=== PATIENT | female | born 1940 | race Caucasian/White ===

== ENCOUNTER → 2024-01-23 08:24 | Outpatient (REF) | payer OTHER, SELFPAY | LOC: WDC 08:24 | PROVIDERS: ATTENDING PHYSICIAN Surgery | DX: D05.91 Unspecified type of carcinoma in situ of right breast (principal) | CPT/HCPCS: 19281; A4648 ==

== ENCOUNTER → 2024-01-24 07:42 | Outpatient (REF) | payer OTHER, SELFPAY | LOC: WDC 07:42 | PROVIDERS: ATTENDING PHYSICIAN Surgery | DX: D05.91 Unspecified type of carcinoma in situ of right breast (principal) | CPT/HCPCS: 88307; 76098; 88342 ==

== ENCOUNTER → 2024-02-23 10:06 | Outpatient (REF) | payer OTHER, SELFPAY | LOC: HWRAD 10:06 | PROVIDERS: ATTENDING PHYSICIAN Obstetrics & Gynecology Gynecologic Oncology; FAMILY PHYSICIAN Internal Medicine | DX: C54.1 Malignant neoplasm of endometrium (principal) | CPT/HCPCS: 71260; 74177; Q9967 ==

== ENCOUNTER → 2024-07-05 14:27 | Outpatient (REF) | payer OTHER, SELFPAY | LOC: HWRAD 14:27 | PROVIDERS: ATTENDING PHYSICIAN Internal Medicine Endocrinology, Diabetes & Metabolism; FAMILY PHYSICIAN Internal Medicine | DX: E04.2 Nontoxic multinodular goiter (principal) | CPT/HCPCS: 76536 ==

== ENCOUNTER → 2024-07-24 13:57 | Outpatient (REF) | payer OTHER, SELFPAY | LOC: HWRAD 13:57 | PROVIDERS: ATTENDING PHYSICIAN Physical Medicine & Rehabilitation; FAMILY PHYSICIAN Internal Medicine | DX: M43.16 Spondylolisthesis, lumbar region (principal) | CPT/HCPCS: 72114 ==

== ENCOUNTER → 2024-08-09 13:51 | Outpatient (REF) | payer OTHER, SELFPAY | LOC: HWWDC 13:51 | PROVIDERS: ATTENDING PHYSICIAN Internal Medicine | DX: Z12.31 Encounter for screening mammogram for malignant neoplasm of breast (principal) | CPT/HCPCS: 77063; 77067 ==

== ENCOUNTER 2025-03-20 09:39 | Emergency (ER) | payer OTHER, SELFPAY ==
[2025-03-20 10:12] VITALS: BP 161/80
--- NOTE | 2025-03-20 11:29 | ED.GENMED ---
History of Present Illness
General
Chief Complaint: Catheter/Tube Problem
Time Seen by Provider: 03/20/25 10:57
History of Present Illness
History of Present Illness:
The patient is an 85-year-old female who was brought in due to a dislodged urinary catheter. She has an indwelling Mccabe catheter for her uterine cancer; however, she noticed the catheter tubing was no longer connected and the urine bag was empty.
Her reported that the catheter segment was found lying on the floor at home. The patient has a history of using a Mccabe catheter for urine drainage and confirmed this is a long-term necessity as she does not urinate independently. She is
unsure when her last exchange was.
Past History
Past History
ED Past Medical History: HTN
ED Past Surgical History: Cholecystectomy and Orthopedic (Rotator cuff repair)
Social History
Tobacco: Non-smoker
Alcohol: None
Personal:
Living: with family
Employment: Retired
Family History
Family History: Other (Noncontributory)
Phy Exam
Physical Exam
Physical Exam:
GENERAL: in no acute distress
HEENT: normocephalic, extraocular movements intact
NECK: normal inspection
RESPIRATORY: no respiratory distress
CARDIOVASCULAR: regular rate and rhythm
ABDOMEN/: soft, non-distended, non-tender to palpation, no rebound or guarding, Mccabe catheter not in place, bag attached to the leg with part of the catheter
NEUROLOGIC: awake and alert, moves all extremities
SKIN: warm
Course
Vital Signs
Initial and Last Documented VS:
Initial Vital Signs
Temp Pulse Resp BP
98.0 F 102 19 161/80
03/20/25 10:12 03/20/25 10:12 03/20/25 10:12 03/20/25 10:12
Last Documented Vital Signs
Temp Pulse Resp BP
98.0 F 102 19 161/80
03/20/25 10:12 03/20/25 10:12 03/20/25 10:12 03/20/25 10:12
MDM/Problems Addressed
Differential Diagnosis Includes:
85-year-old woman presenting to the emergency department with dislodgment of her Mccabe catheter. Vitals are unremarkable and exam does show apartment Mccabe catheter only attached to the bag. There is no connection to her urethra. I did obtain a
bedside ultrasound to confirm that there was no piece in her bladder. Her bladder was distended but there was no foreign body or remaining pieces of the catheter. Will replace catheter. Given that the catheter was only out for a few hours we will
hold off on any blood work or urine sampling. Will discharge after replacement.
*Critical Care Note
Total Time (30-74mins, 75-104mins- exclusive of procedures): Not Applicable
ED Attending Note
-
Portions of this chart may have been created with voice recognition software.� Occasional wrong word or��sound alike� substitutions may have occurred due to the inherent limitations of voice recognition software.
Discharge Plan
Departure
Prescriptions:
No Action
simvastatin 20 MG tablet
20 mg PO QPM
cholecalciferol (vitamin D3) 1,000 UNITS tablet
1 tab PO DAILY
coQ10 (ubiquinol) 100 MG capsule
300 mg PO DAILY
krill oil 1 EACH capsule
1 cap PO DAILY
biotin 5,000 MCG tablet,disintegrating
5,000 mcg PO DAILY
levothyroxine 25 mcg Tablet
25 mcg PO DAILY
magnesium 200 mg Tablet
400 mg PO DAILY
scpuwsizafwh-zrwpbwbz-pexuvy Tablet
1 tab PO DAILY
Align (B.infantis) 4 mg Capsule
4 mg PO DAILY
oxycodone 5 mg tablet
5 - 10 mg PO Q6H PRN (Reason: moderate-severe pain) Qty: 25 0RF
Rx Instructions:
1 tab for moderate pain, 2 if severe.
Dx total joint.
meloxicam 15 mg tablet
15 mg PO DAILY Qty: 14 0RF
Rx Instructions:
Take with food.
DO NOT take within 2 hours of Aspirin post-surgery.
ondansetron HCl 4 mg tablet
4 mg PO Q6H PRN (Reason: nausea and vomiting) Qty: 30 0RF
Rx Instructions:
Can take 1/2 hour prior to Oxycodone if experiencing recurrent nausea.
doxycycline monohydrate 100 mg capsule
100 mg PO BID Qty: 7 0RF
Rx Instructions:
Start night of discharge and continue twice a day for 3 days post-surgery.
mupirocin 2 % ointment
1 applic intranasal BID Qty: 1 0RF
Patient Comments:
Patient administered this medication this morning 09/20/23 @ 04:30. Patient strarted this medication 09/17/23 in the morning.
acetaminophen [Acetaminophen Extra Strength] 500 mg tablet
1,000 mg PO Q6H Qty: 60 0RF
Rx Instructions:
DO NOT exceed >4000 mg daily.
aspirin 325 mg tablet
325 mg PO DAILY Qty: 30 0RF
Rx Instructions:
Take daily x4 weeks for blood clot prevention; then resume Aspirin 81 mg daily.
docusate sodium [Colace] 100 mg capsule
100 mg PO BID Qty: 30 0RF
sennosides [senna] 8.6 mg tablet
17.2 mg PO BID Qty: 30 0RF
diltiazem HCl 240 MG capsule,extended release 24hr
240 mg PO DAILY Qty: 0 0RF
Rx Instructions:
HOLD IF systolic blood pressure <130 while on Oxycodone.
hydralazine 25 MG tablet
25 mg PO BID Qty: 0 0RF
Rx Instructions:
HOLD IF systolic blood pressure <130 while on Oxycodone.
omeprazole 40 mg Capsule,Delayed Release(Dr/Ec)
40 mg PO DAILY Qty: 0 0RF
Rx Instructions:
Take daily while on Meloxicam and full dose Aspirin to prevent GI upset.
valsartan-hydrochlorothiazide [Diovan HCT] 320-25 mg Tablet
1 tab PO DAILY Qty: 0 0RF
Rx Instructions:
HOLD IF systolic blood pressure <130 while on Oxycodone.
Referrals:
Barb Valencia MD [Family Provider, Internal Medicine]
Interventions
Interventions:
*General Assessment Last Done: 03/20/25 10:12
*ED COVID-19 Vaccine History Last Done: 03/20/25 10:12
ED-Female Genitourinary Assessment Last Done: 03/20/25 11:41
Discharge Date and Time
Print Language: GREENLANDIC
== END 2025-03-20 12:41 | disposition home or self-care (01) ==
LOC: EMR 09:39
PROVIDERS: EMERGENCY PHYSICIAN Student in an Organized Health Care Education/Training Program; FAMILY PHYSICIAN Internal Medicine
DX: T83.021A Displacement of indwelling urethral catheter, initial encounter (principal); Y92.9 Unspecified place or not applicable; I10 Essential (primary) hypertension; Z90.49 Acquired absence of other specified parts of digestive tract
CPT/HCPCS: 99282; 51702

== ENCOUNTER 2025-03-23 13:24 | Inpatient (IN) | payer OTHER, SELFPAY ==
[2025-03-21] VITALS (11 sets, daily range): BP systolic 129–157; BP diastolic 52–76; BMI 24.0
[2025-03-21 12:42] LABS: % Basophils 0.3 % (0-2); % Eosinophils 0.3 % (0-6); % Immature Granulocytes 0.4 % (0-0.5); % Lymphocytes 3.9 % (20.5-51.1); % Monocytes 10.7 % (1.7-9.3); % Neutrophils 84.4 % (42.2-75.2); Absolute Lymphocytes 0.4 10^3/uL (1.2-3.4); Absolute Neutrophils 7.7 10^3/uL (1.4-6.5); Mean Corp Hgb Conc. 32.1 g/dL (33.0-37.0); Mean Corpuscular Hgb 30.9 pg (27.0-31.0); Mean Corpuscular Volume 96.2 fL (81.0-99.0); Mean Platelet Volume 10.5 fL (7.4-10.4); Nucleated Red Blood Cells % 0 %; Platelet Count 370 10^3/uL (130-400); Red Blood Cell Count 2.91 10^6/uL (4.20-5.40); Red Cell Dist. Width 18.6 % (11.5-14.5); White Blood Cell Count 9.1 10^3/uL (4.8-10.8)
[2025-03-21 12:43] LABS: Urine Albumin 3+ (Neg - Trace); Urine Bilirubin Negative (Negative); Urine Character Slightly Cloudy (Clear); Urine Color Yellow; Urine Glucose Negative (Negative); Urine Ketone Negative (Negative); Urine Leukocyte 3+ (Negative); Urine Nitrite Positive (Negative); Urine Occult Blood 3+ (Negative); Urine Urobilinogen Negative (Neg - 1+); Urine pH 6.5 (5.0-9.0)
--- NOTE | 2025-03-21 13:00 | ED.GENMED ---
History of Present Illness
General
Chief Complaint: Change in Mental Status
Source: patient and spouse
Exam Limitations: none
Time Seen by Provider: 03/21/25 12:53
History of Present Illness
History of Present Illness:
See MDM
Past History
Past History
ED Past Medical History: HTN
ED Past Surgical History: Cholecystectomy and Orthopedic (Rotator cuff repair)
Social History
Tobacco: Non-smoker
Alcohol: None
Personal:
Living: with family
Employment: Retired
Family History
Family History: Other (Noncontributory)
Phy Exam
Physical Exam
Physical Exam:
See MDM
Course
Orders/Labs/Results
Orders:
Orders
03/21/25 12:19
ECG [Electrocardiogram (*1)] Urgent
Reason for Study: Atrial Fibrillation
03/21/25 12:20
EKG- Treatment ONCE
03/21/25 12:30
Complete Blood Count/With Diff Urgent
Comprehensive Metabolic Panel Urgent
Urinalysis Reflex To Culture Urgent
Date Specimen was Collected: 03/21/25
Time Specimen was Collected: 12:25
Urine Microscopic Reflex Cult Urgent
Urine Culture Urgent
PIYUSH Source: U
Specimen Description:
Date Specimen was Collected: 03/21/25
Time Specimen was Collected: 12:25
03/21/25 13:00
CT Head W/o Iv Contrast Urgent
Comment:
Reason For Exam: Repetitive questioning, confusion
03/21/25 14:50
Aspirin Chewable [Low Strength Aspirin] 324 mg PO NOW STA
03/21/25 15:49
Admit/Transfer Patient As Directed
Co-Sign Provider:
Level of Care: Observation services
Assign to:: Telemetry
Physician / Group: Naila Dyer
Diagnosis: CVA/TIA
Reason for Telemetry: CVA/TIA
Date to Stop Telemetry: 03/24/25
Time to Stop Telemetry: 11:00
PRN Pain Medication Management As Directed
May give lesser potent ordered pain med per pt: Yes
preference::
Protocol:: Medication orders for pain may be administered in a
manner that supports deferring to patient preference
when the pt is:
- Requesting an ordered lesser potent pain medication.
Least to most potent pain medications are defined
as: acetaminophen < NSAID < tramadol < opioids
(morphine, oxycodone, hydromorphone).
- Requesting a lesser dose of the same medication IF
ORDERED.
- Requesting a less intrusive route of administration
if both routes are prescribed by the provider (PO <
IV).
03/21/25 15:51
Code Status As Directed
Resuscitation Status: Full Code
03/21/25 15:54
Clopidogrel Bisulfate [Plavix] 75 mg PO NOW STA
03/24/25 11:00
DC Protocol for Telemetry ONCE
Abnormal Lab Results
03/21/25
12:30
RBC 2.91 L 10^6/uL
(4.20-5.40)
Hgb 9.0 L g/dL
(12.0-16.0)
Hct 28.0 L %
(37.0-47.0)
MCHC 32.1 L g/dL
(33.0-37.0)
RDW 18.6 H %
(11.5-14.5)
MPV 10.5 H fL
(7.4-10.4)
Absolute Neuts (auto) 7.7 H 10^3/uL
(1.4-6.5)
Absolute Lymphs (auto) 0.4 L 10^3/uL
(1.2-3.4)
Absolute Monos (auto) 1.0 H 10^3/uL
(0.1-0.6)
Neutrophils % 84.4 H %
(42.2-75.2)
Lymphocytes % 3.9 L %
(20.5-51.1)
Monocytes % 10.7 H %
(1.7-9.3)
BUN 25 H mg/dl
(7-17)
Creatinine 1.1 H mg/dL
(0.6-1.0)
Glucose 133 H mg/dl
(70-99)
Total Protein 6.0 L g/dl
(6.3-8.2)
Albumin 3.3 L g/dl
(3.5-5.0)
Ur Occult Blood Reflex 3+ A
(Negative)
Urine Nitrite (Reflex) Positive A
(Negative)
Leukocyte Esterase Rfl 3+ A
(Negative)
Urine WBC (Reflex) 50-60 A /HPF
(0-5)
Urine Bacteria (Reflex) Many A
(Negative)
Urine Albumin (Reflex) 3+ A
(Neg - Trace)
03/21/25 12:30
03/21/25 12:30
Vital Signs
Initial and Last Documented VS:
Initial Vital Signs
Temp Pulse Resp BP Pulse Ox
98.1 F 105 20 145/66 99
03/21/25 12:20 03/21/25 12:20 03/21/25 12:20 03/21/25 12:20 03/21/25 12:20
Last Documented Vital Signs
Temp Pulse Resp BP Pulse Ox
98.1 F 85 22 151/53 100
03/21/25 12:20 03/21/25 16:00 03/21/25 16:00 03/21/25 16:00 03/21/25 14:45
MDM/Problems Addressed
Differential Diagnosis Includes:
Note:
CHIEF COMPLAINT(S)
Confusion and feeling 'out of it.'
HISTORY OF PRESENT ILLNESS
The patient is an 85-year-old female who reports feeling 'out of it' and confused, stating she did not know where she was. Her spouse noted that this morning she was repeatedly asking the same questions, indicating a potential issue with memory or
cognition. The symptoms began upon waking and have persisted, leaving the patient feeling abnormal. However, she states she is feeling better. She denies any previous history of strokes and does not currently take any blood thinners. She states she
still feels off and is confused about her location. She does not have a history of atrial fibrillation, but EMS had noted a fast heart rate during transport.
PHYSICAL EXAM
General: Well appearing and non-toxic
HEENT: protecting airway
Neck: appears supple
CV: No evidence of cyanosis. Regular rate and rhythm
Resp: No accessory muscle use. Lungs clear
Abd: Non-distended
Extremities: No deformities. No edema
Neuro: alert. Mild confusion but no other focal neurodeficits
Psych: Normal affect
Skin: Intact
REVIEW OF SYSTEMS
- Neurological: Confusion, repetitive questioning.
- Vision: Denies blurry vision or trouble seeing.
PLAN
The current plan includes performing a computed tomography (CT) scan of the head to rule out a transient ischemic attack or stroke. Admission for overnight observation is recommended to ensure no progression of symptoms, with further discussions to
follow based on test results. Continued monitoring of neurological status is planned.
DIFFERENTIAL DIAGNOSIS
The Differential Diagnosis includes, in no particular order and is not limited to:
1. Transient Ischemic Attack (Mini Stroke)
2. Stroke (Cerebrovascular Accident)
3. Delirium
4. Urinary Tract Infection with Delirium
5. Medication-induced Confusion
6. Electrolyte Imbalance
7. Dehydration
8. Hypoglycemia
9. Dementia Exacerbation
10. Cardiac Arrhythmia (e.g., Paroxysmal Atrial Fibrillation)
EKG
My independent EKG interpretation is:
- Rhythm: Sinus tachycardia
- Notable intervals: Bi-fascicular block
- No ST-segment elevation myocardial infarction (STEMI) observed
NIHSS:
Result Summary
1 points undefined
Inputs:
1A: Level of consciousness -> 0 = Alert; keenly responsive
1B: Ask month and age -> 1 = 1 question right
'Blink eyes' & 'squeeze hands' -> 0 = Performs both tasks
2: Horizontal extraocular movements -> 0 = Normal
3: Visual jewell -> 0 = No visual loss
4: Facial palsy -> 0 = Normal symmetry
5A: Left arm motor drift -> 0 = No drift for 10 seconds
5B: Right arm motor drift -> 0 = No drift for 10 seconds
6A: Left leg motor drift -> 0 = No drift for 5 seconds
7: Limb ataxia -> 0 = No ataxia
6B: Right leg motor drift -> 0 = No drift for 5 seconds
8: Sensation -> 0 = Normal; no sensory loss
9: Language/aphasia -> 0 = Normal
10: Dysarthria -> 0 = Normal
11: Extinction/inattention -> 0 = Normal
EKG
My independent EKG interpretation is:
- Rhythm: Sinus tachycardia
- Notable intervals: Bi-fascicular block
- No ST-segment elevation myocardial infarction (STEMI) observed
CARE-UPDATE
03/21/25 - 13:04
The analysis suggests nitrate presence, but with no fever, dysuria, or pelvic pain, it is likely due to colonization from her indwelling catheter. Symptoms are improving, making a UTI unlikely. A culture will be obtained for confirmation.
Disposition:
SUMMARY OF ENCOUNTER
The patient, an 85-year-old female, presented to the emergency department with confusion and feeling 'out of it,' having difficulty with orientation, specifically regarding location and current year. She repeatedly asked the same questions, which
prompted concern over her cognitive state. A CT scan of the head was conducted, revealing no acute intracranial abnormalities. Routine blood work was also performed, which did not show clinically relevant abnormalities that could explain her
confusion episode.
DISPOSITION
The patient will be admitted for further workup to examine the possibility of a transient ischemic attack (TIA).
ASSESSMENT
Given the patients confusion and repetitive questioning, a transient ischemic attack or other neurological event is suspected, warranting further inpatient evaluation.
EMERGENCY TREATMENTS ADMINISTERED
A dose of aspirin was administered as part of the management of a potential TIA.
PLAN
The plan includes admission for observation and further workup, including continued neurological monitoring and additional testing to confirm or rule out the suspected transient ischemic attack.
INDEPENDENT INTERPRETATION OF TESTS
My independent interpretation of the CT scan of the head is that there are no acute intracranial abnormalities present.
MEDICATION RECONCILIATION
A dose of aspirin was administered during the emergency department visit.
MEDICAL DECISION MAKING
The complexity of the patients presentation involves a potential transient ischemic attack, necessitating hospital admission for further evaluation. The decision-making process was focused on ruling out acute neurological causes due to the sudden
onset of confusion and potential overlap with symptoms of a TIA. The administration of aspirin is a preventive measure against further cerebrovascular events, and inpatient monitoring will allow for a more comprehensive assessment of the patients
condition.
*Critical Care Note
Total Time (30-74mins, 75-104mins- exclusive of procedures): Not Applicable
ED Attending Note
-
Portions of this chart may have been created with voice recognition software.� Occasional wrong word or��sound alike� substitutions may have occurred due to the inherent limitations of voice recognition software.
Discharge Plan
Departure
Patient Disposition: Admit
Date of Disposition: 03/21/25
Time of Disposition: 14:48
Admit to: Telemetry
Presentation/result/management discussed w/ accepting MD/DO: Hospitalist
Discharge Problem:
Brain TIA
Interventions
Interventions:
*Risk Screen - Suicide Last Done: 03/21/25 12:20
*General Assessment Last Done: 03/21/25 12:20
*Neglect/Abuse Screening Last Done: 03/21/25 12:20
*ED- Fall Risk Assessment Last Done: 03/21/25 12:20
*ED COVID-19 Vaccine History Last Done: 03/21/25 12:20
ED- Neurological Assessment Last Done: 03/21/25 12:52
ED- Cardiac Assessment Last Done: 03/21/25 12:52
ED Swallowing Screen Last Done: 03/21/25 14:53
[2025-03-21 13:08] LABS: ALT (SGPT) 12 U/L (0-35); AST (SGOT) 20 U/L (14-36); Albumin 3.3 g/dl (3.5-5.0); Alkaline Phosphatase 80 U/L (38-126); Blood Urea Nitrogen 25 mg/dl (7-17); Calcium 9.4 mg/dl (8.4-10.2); Carbon Dioxide 26 mmol/L (22-30); Chloride 107 mmol/L (98-107); Glucose 133 mg/dl (70-99); Potassium 4.9 mmol/L (3.5-5.1); Sodium 140 mmol/L (135-145); Total Bilirubin 0.5 mg/dl (0.2-1.3); eGFR 49.55
[2025-03-21 13:13] LABS: Urine Squamous Cell 0-2 /LPF (Few)
[2025-03-21 13:14] LABS: Urine Bacteria Many (Negative); Urine Red Blood Cell 0-2 /HPF (0-2); Urine White Cell 50-60 /HPF (0-5)
[2025-03-21] MEDS: LOW STRENGTH ASPIRIN 324 MG PO (14:55)
--- NOTE | 2025-03-21 15:03 | HPS.HSE ---
Family Physician
-
Family Physician: Barb Valencia
Chief Complaint
-
change in mental status
History of Present Illness
Patient is a 85-year-old female with past medical history significant for hypertension, hyperlipidemia, ASCVD, hypothyroid, GERD and gout who presented to [facility] ED for evaluation of change in mental status. Patient and spouse at bedside who assist
with HPI. Patient is AAOx2-3, able to remember where she is over a short period of time, she notes that her memory seems to be getting worse overtime. She reports that she came to hospital for weakness that started yesterday. Patients
reports when patient woke this morning anything she said was repetitive and nonsensical so he called EMS to bring her for evaluation. Patient denies any recent illness, fever, chills, cough, shortness of breath, chest pain, nausea, vomiting,
constipation, diarrhea or urinary symptoms. Patient has chronic Mccabe in place that reports is from a bladder mass or external mass pressing against bladder which he believes was causing issues going to the bathroom but he is unsure of
details.
Medical History
Past Medical History
Past Medical History: Reports Other
Additional Past Medical History:
hypertension
hyperlipidemia
ASCVD
hypothyroid
GERD
gout
iron deficiency anemia
mild pulmonary hypertension
Hx breast cancer
Hx uterine cancer
Past Surgical History: Reports Other
Additional Past Surgical History:
Cholecystectomy(2006)
Rotator cuff tear (left)-arthroscopy (2011)
Colonoscopy--repeat 7 years--[place] 02/2006
LT l5 TF JARETH 02.23.22
LT L5-S1 ILESI NO SED DOS 03.29.2022 SB
Left L4 TF JARETH 05/05/22
Left L4-L5, L5-S1 MBB 07/01/22
hysterectomy w chemo and radiation [place] 12/2022
EGD and Colonoscopy - normal (suboptimal colonoscopy prep) by Bert 09/2022
lumpectomy - 01/2024
R shoulder replacement - 09/2023
B/L L4-5,L5-S1 MBB NO SED 06/05/24
L5-SI INJECTION NO SED 06/28/24
Social History
Tobacco: Non-smoker
Alcohol: None
Drug: None
Personal:
Living: With Family
Family History
Family History: Unable to Obtain
Allergies / Home Medications
Allergies reflects when Allergies were last updated in [employer].
Home Medications with original date entered in [employer]
Allergy/Medication List:
Allergies
Allergy/AdvReac Type Severity Reaction Status Date / Time
No Known Allergies Allergy Verified 03/21/25 12:20
Home Medications
cholecalciferol (vitamin D3) 25 mcg (1,000 unit) tablet 1 tab PO DAILY 06/02/21
coQ10 (ubiquinol) 100 mg capsule 300 mg PO DAILY 06/02/21
Held on 09/20/23. Instructions: Resume on 09/27/23.
krill 500 mg-omega-3 150 mg-dha 45 mg-epa 75 iv-bbuijfq-gtiaj capsule (krill oil) 1 cap PO DAILY 06/02/21
Held on 09/20/23. Instructions: Resume on 09/27/23.
simvastatin 20 mg tablet 20 mg PO QPM 06/02/21
Bifidobacterium infantis 4 mg capsule (Align (B.infantis)) 4 mg PO DAILY 08/25/23
levothyroxine 25 mcg tablet 25 mcg PO DAILY 08/25/23
magnesium 200 mg tablet 400 mg PO DAILY 08/25/23
mblawauuyzxp-jlcnhsyy-adbazz tablet 1 tab PO DAILY 08/25/23
hydralazine 25 mg tablet 25 mg PO BID #0 tabs 09/20/23
omeprazole 40 mg capsule,delayed release 40 mg PO DAILY #0 caps 09/20/23
valsartan 320 mg-hydrochlorothiazide 25 mg tablet (Diovan HCT) 1 tab PO DAILY #0 tabs 09/20/23
buprenorphine 20 mcg/hour weekly transdermal patch 20 mcg transdermal WEEKLY 03/21/25
diltiazem HCl 240 mg capsule,24 hr,extended release 240 mg PO DAILY 03/21/25
duloxetine 30 mg capsule,delayed release sprinkle 30 mg PO DAILY 03/21/25
estradiol 0.01% (0.1 mg/gram) vaginal cream (Estrace) 1 appful vaginal DAILY 03/21/25
Review of Systems
-
History Source: Patient
Neurological: Reports Weakness and Other (confusion and nonsensical speech )
Physical Exam
Vital Signs
Vital Signs
Temp Pulse Resp BP Pulse Ox
98.1 F 88 17 148/54 100
03/21/25 12:20 03/21/25 15:00 03/21/25 15:00 03/21/25 14:00 03/21/25 14:45
Physical Exam
General: Well Developed, Well Nourished, No Apparent Distress and Comfortable
HEENT: NormoCephalic, Moist mucous membranes, Atraumatic, Nose Appears Normal, Ears Appear Normal and Hearing Impaired
Respiratory: Clear
Cardiac: S1/S2 and Regular Rhythm
Breast: Deferred by me
GI: Soft, Non Tender, Non Distended and Normal Bowel Sounds
Rectal: Deferred by Provider
Genito-urinary: Deferred by me
Musculoskeletal: No Clubbing, No Cyanosis and No Edema
Skin: IV/Catheter Site
Neuro: Awake, Alert and Other (confusion no other observed focal deficits )
Psych: Calm
Laboratory Results
-
03/21/25 12:30
03/21/25 12:30
Laboratory Results
Total Bilirubin 0.5 mg/dl (0.2-1.3) 03/21/25 12:30
AST 20 U/L (14-36) 03/21/25 12:30
ALT 12 U/L (0-35) 03/21/25 12:30
Alkaline Phosphatase 80 U/L (38-126) 03/21/25 12:30
Data Reviewed
-
CT Scan: Report Reviewed by me (head: No acute intracranial abnormality identified.)
Medical Tests (Nuc Med, Echo, EKG etc): Report Reviewed by me (EKG: SINUS TACHYCARDIA RIGHT BUNDLE BRANCH BLOCK LEFT ANTERIOR FASCICULAR BLOCK BIFASCICULAR BLOCK )
Lab Data: Labs Reviewed by me (hgb 9.0, hct 28.0, BUN 25, Creat 1.1, eGFR 49.55)
Impression/Plan
-
IMPRESSION/PLAN:
#change in mental status 2/2 TIA/CVA vs. UTI
EKG: SINUS TACHYCARDIA
RIGHT BUNDLE BRANCH BLOCK
LEFT ANTERIOR FASCICULAR BLOCK
BIFASCICULAR BLOCK
Head CT: No acute intracranial abnormality identified.
UA: indicative of UTI
Urine Cx: pending
- Admit to telemetry
- Consult neurology
- Start Aspirin and Plavix
#urinary tract infection
UA: indicative of UTI
Urine Cx: pending
chronic Mccabe in place, changed yesterday in ED for dislodgement
- IVF
- IV Ceftriaxone
- Urine Cx pending
#acute kidney injury
BUN 25, Creat 1.1
- IVF
- monitor BMP
#hypertension
- continue diltiazem, hydralazine and valsartan-HCTZ
#hyperlipidemia
#ASCVD
- continue simvastatin
#hypothyroid
- continue levothyroxine
#GERD
- continue omeprazole
#iron deficiency anemia
Hgb 9.0, Hct 28.0
- monitor H/H
#Hx breast cancer
#Hx uterine cancer
follows at [facility]
recent completion of chemo and radiation 2 weeks ago
reports bladder pressing on bladder or in bladder this is why has chronic Mccabe
- continue to follow up out patient
- continue with chronic Mccabe
#gout
#mild pulmonary hypertension
Code status: full code
DVT prophylaxis: SCDs
[2025-03-21] MEDS: PLAVIX 75 MG PO (16:01)
--- NOTE | 2025-03-21 16:19 | W.PN.UPDATE ---
Update Note
Progress Note Update
This is an addendum to H&P written by Estella Carlos on 03/21/2025. Patient seen and examined independently with COMPONENT DESIGN ENGINEER.
85-year-old female past medical history of chronic Mccabe catheter, hypertension, hyperlipidemia, CAD, hypothyroidism, GERD, iron-deficiency anemia, breast/uterine cancer status post chemotherapy and radiation 2 weeks ago, gout, presenting with
confusion and altered mental status today with slurred speech.
She was here yesterday for dislodged Mccabe catheter and was exchanged at that time.
Mccabe catheter placed for possible tumor obstructing the bladder.
Labs show KEON.
CT head shows no acute abnormality.
Aspirin and Plavix given.
History sounds suspicious for catheter associated UTI versus less likely CVA. Also with KEON. Check urine culture. Ceftriaxone. IV fluids. Hold losartan/hydrochlorothiazide.
Neurology consulted and can decide if MRI is necessary.
[2025-03-21] MEDS: LIPITOR 10 MG PO (18:17)
[2025-03-21] MEDS: NSS 1000 IV (18:17)
[2025-03-21] MEDS: STERILE WATER FOR INJECTION 10 ML IV (18:17)
[2025-03-21] MEDS: ROCEPHIN 1000 MG IV (18:17)
[2025-03-21 18:24] LABS: Erythrocyte Sed Rate 130 mm/hour (0-20)
[2025-03-21] MEDS: APRESOLINE 25 MG PO (20:05)
[2025-03-22] VITALS (7 sets, daily range): BP systolic 101–160; BP diastolic 44–69; PULSE 86; O2SAT 98
[2025-03-22] MEDS: SYNTHROID 25 MCG PO (05:11)
[2025-03-22] MEDS: NSS 1000 IV ×2 (05:11→23:12)
[2025-03-22 07:25] LABS: INR 1.07; PT 14.4 Sec (11.4-14.6)
[2025-03-22 07:31] LABS: HDL Cholesterol 56 mg/dl; LDL Cholesterol, Calculated 49 mg/dl; Total Cholesterol 126 mg/dl (50-199); Triglyceride 107 mg/dl (10-149); Very Low Density Lipoprotein 21 mg/dl (0-30)
--- NOTE | 2025-03-22 08:11 | W.PN.HOSP.TC ---
Today's Communication/Plan
-
see plan
Assessment / Plan
Assessment / Plan
Gen: NAD, AAOx3.
Eyes: EOMI, PERRLA, no scleral icterus.
Neck: supple.
CV: RRR, +S1/S2, no m/r/g.
Resp: CTAB, no rales, wheezes, or rhonchi.
Abd: +BS, soft, NT, ND
Skin: No rashes.
Neuro: CN 2-12 intact, non-focal.
Psych: Normal mood and affect.
CT Brain: No acute intracranial abnormality identified.
Echo: EF 65-70%. No RWMA. Normal RV sz/fxn. Massively dilated left atrium. Moderately dilated right atrium. Moderate mitral stenosis; mean gradient 7 mmHg. Mild to moderate mitral regurgitation. Mild TR. Estimated pulmonary artery pressure of
40-45mmHg. No prior study available for comparison.
Acute metabolic encephalopathy:
-current concern UTI vs CVA
-chronic grossman, was changed in ER after having become dislodged on 03/20/25
-afebrile, no leukocytosis
-pt placed on ASA/Plavix, neuro consulted, CT Brain unremarkable as above
-pt placed on Rocephin, UCx with pseudomonas, will c/s ID as this likely represents colonization due to grossman
-Patient with underlying dementia which is exacerbated by hospital-acquired delirium
-CTA head/neck, MRI brain pending
Elevated trop:
-denies CP
-ECG (read by me): Sinus tachy @ 104, L-axis, RBBB, LAFB, no acute ST changes, TWi V1
-suspect non-ischemic myocardial injury
-echo above
-case discussed with cards, etiology of elevated troponin is unclear at this time. Continue to trend.
Other problems:
KEON has been ruled out
Essential HTN: cont Hydralazine/Cardizem CD
CAD: cont statin/ASA/Plavix
HLD: cont statin
Hypothyroidism: cont Levoxyl
GERD: Cont PPI
Iron deficiency anemia, chronic, trend
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
reports bladder pressing on bladder or in bladder this is why has chronic Grossman
Gout
Mild pulmonary hypertension
Patient's updated at length at bedside
FULL/SCDs
Total time spent on today's encounter was 50 minutes which included time spent in counseling the patient/family regarding diagnosis and treatment plan as listed above, goals of care, and symptom management. Case was discussed with nursing staff,
specialists, and care coordinators/case management. All labs and imaging personally reviewed by me. Remainder the time spent in detailed review of previous records, lab data, imaging, and other medical provider documentation.
Anticipated Discharge: Within 24 hours
Subjective/Interval History
-
Date of Service: March 22, 2025
Objective Data
-
Labs:
Laboratory Results
03/22/25
06:43
PT 14.4
INR 1.07
APTT 38.0 H
Vital Signs:
Vital Signs
Temp Pulse Resp BP Pulse Ox
97.7 F 95 18 140/69 97
03/22/25 07:58 03/22/25 07:58 03/22/25 07:58 03/22/25 07:58 03/22/25 07:58
I&O
03/21/25 03/22/25 03/23/25
06:59 06:59 06:59
Output Total 300 / 300
Balance -300 / -300
--- NOTE | 2025-03-22 08:20 | CON.NEURO4 ---
Addendum entered and electronically signed by Foreign Meneses MD 03/22/25 13:03:
Studies reviewed.
I have personally examined the patient. I reviewed and agree with the FURNACE COMBINATION ANALYST's Note.
My addenda:
Awake, alert, interactive. No acute distress.
Speech intact. Patient's history provision is confused
Follows 2-step requests w/o difficulty. No tremor.
Extra-ocular movements grossly intact.
Facial movements full and symmetric. Hearing intact to normal conversational volume.
Normal UE movements bilaterally.
Neck: full ROM.
Chest: no dyspnea
Heart: no JVD
Ext: (-) Clubbing, (-) Cyanosis, (-) Edema
IMPRESSIONS/RECOMMENDATIONS:
Abrupt onset of change mental status on the backdrop of patient having cognitive decline over an unclear period of time
Differential diagnosis includes acute ischemic stroke which is less likely than abrupt worsening of underlying dementia. The possibility of a structural abnormality producing symptomatology is present
Check MRI of brain with and without contrast
Continue aspirin
Rehabilitation evaluations
Continue simvastatin
Check CTA head and neck to ensure absence of stenosis
D/W patient
Will continue to follow pending results.
Original Note:
Documented by User: Estella Dawson NP 03/22/25 12:56
Consultation - Neurology 4
-
CONSULTING PHYSICIAN: Foreign Meneses MD
REFERRING PHYSICIAN: Hospitalists/BART Mendes
DICTATED BY: BART Bledsoe
DATE/TIME OF REQUEST: 03/21/25
DATE/TIME OF CONSULTATION: 03/22/25
Reason for Consultation: Change in mental status
History of Present Illness:
This is an 85-year-old left-handed female with a PMH of uterine cancer s/p hysterectomy, chemo, XRT who has presented to the hospital on 03/21/25 with report of confusion and weakness. Patient's spouse reported that the patient had been weak for the
past two days prior to arrival. She then woke up yesterday (03/21/25) morning and her speech was repetitive and nonsensical, prompting him to call EMS. CT head was obtained on arrival and is negative for any acute abnormalities. Blood pressure was
161/80, GFR is 49, troponin is 1.210, and urinalysis is abnormal. Her grossman catheter was exchanged in the ER. This morning (03/22/25), patient reports that she feels back to normal, although conversation is very confused. She does not some short term
memory difficulty at baseline, she is unable to state when this began. She denies any headache, dizziness, speech/swallow difficulty, numbness, and weakness. She is not taking any blood-thinning medications.
Past Medical History: Uterine cancer, atypical breast ductal hyperplasia, chronic grossman catheter, HTN, HLD, CAD, hypothyroidism, gout, GERD, gastric ulcer, glaucoma, prediabetes, iron deficiency anemia
Surgical History: Cholecystectomy, hysterectomy, L rotator cuff repair, L4-5 ILESI
Family History: Reviewed and noncontributory.
Social History: Denies tobacco, alcohol, and illicit drug use.
Allergies: No known allergies.
Home Medications: See below.
Review of Symptoms:
Patient denies any fever, headache, chest pain, shortness of breath, GI or symptoms.
�Per the HPI.�All systems are reviewed negative except above.
Physical Exam:
The patient is afebrile, abdomen is nondistended, breathing is unlabored, skin is warm and dry, no edema.
NIH Stroke Scale:
I performed the NIH stroke scale on the patient on 03/22/25 at 0830. The patient scored 2 points on the NIH stroke scale assessment, which were assigned as follows: See below.
Neurologic Examination:
The patient is awake, alert and oriented to self, month, year, not to situation or time of day, confused conversation. Next holiday- Thanksgiving. She is able to follow commands and answer questions appropriately. There is no aphasia or dysarthria.
On cranial nerve assessment, pupils are 3 mm bilateral, round and reactive to light and accommodation. Visual khan are full. Extraocular movements are intact. Facial sensations are intact and bilaterally symmetrical, there is slight ptosis on the
left. Hearing is intact bilaterally to normal conversation volume. Tongue palate and uvula are midline. Sternocleidomastoid strengths are full bilaterally. Motor strengths are 5/5 right upper, 5-/5 left upper (unable to fully extend LUE), and 4/5
bilateral lower extremities on medical research [place] scale. There is drift in the LUE. No involuntary movement noted. Deep tendon reflexes are absent bilateral upper and lower extremities and Babinski is absent bilaterally. There was no
extinction noted on double simultaneous stimulation. Coordination is mildly ataxic in the LUE.
Lab Results: See below.
Neuro Imaging:
1. CT Head 03/21/25: No acute intracranial abnormality identified.
Differentials for the patient's presentation include:
1. Confusion. Unclear etiology; possibly TME in the setting of infection and/or structural brain abnormality.
2. Uncertain cognitive baseline.
3. Unclear cause of significancy elevated ESR.
Patient has the following risk factors for their symptoms: abnormal urinalysis/indwelling grossman, age, HTN, HLD
Recommendations:
-Continue aspirin 81mg daily.
-MRI brain w/ and w/o contrast pending.
-CTA head/neck pending.
-Goal normotension.
-Infectious workup per primary team.
-Checking blood work for metabolic abnormalities.
-LDL goal <70. LDL is 49. Okay to continue home simvastatin 20mg daily as LDL is at goal.
-Goal normoglycemia, hbA1c is pending.
-NIHSS and neurological checks per unit guidelines.
-Provide family with a stroke education packet.
-PT/OT/ST evaluations.
-DVT prophylaxis.
-Outpatient cognitive testing.
-Will follow pending results.
Discussed patient care with: Dr. Meneses, the patient
Vital Signs and Labs
-
Vital Signs and Labs:
Vital Signs
Temp Pulse Resp BP Pulse Ox
97.7 F 95 18 140/69 97
03/22/25 07:58 03/22/25 07:58 03/22/25 07:58 03/22/25 09:33 03/22/25 07:58
Lab Results
03/21/25 12:30
03/22/25 09:27
PT 14.4 Sec (11.4-14.6) 03/22/25 06:43
INR 1.07 03/22/25 06:43
APTT 38.0 Sec (23.4-35.0) H 03/22/25 06:43
Sodium Cancelled 03/22/25 09:27
Potassium Cancelled 03/22/25 09:27
BUN Cancelled 03/22/25 09:27
Glucose Cancelled 03/22/25 09:27
Calcium Cancelled 03/22/25 09:27
LDL Cholesterol, Calc 49 mg/dl 03/22/25 06:44
Medications
-
Active Medications
Generic Name Dose Route Start Last Admin
Trade Name Freq PRN Reason Stop Dose Admin
Acetaminophen 650 mg 03/21/25 17:33
Acetaminophen 325 Mg Tablet PO 04/18/25 17:32
Q4HPRN PRN
PEÑA, mild pain, or temp >100.4F
Aspirin 81 mg 03/22/25 08:00 03/22/25 09:32
Aspirin 81 Mg Chewable Tablet PO 04/19/25 07:59 81 mg
DAILY MAHNAZ Administration
Atorvastatin Calcium 10 mg 03/21/25 18:00 03/21/25 18:17
Atorvastatin (Lipitor) 10 Mg Tablet PO 04/18/25 17:59 10 mg
QPM MAHNAZ Administration
Cholecalciferol 25 mcg 03/22/25 08:00 03/22/25 09:31
Cholecalciferol (Vitamin D3) 25 Mcg Tablet (1,000 Units) PO 04/19/25 07:59 25 mcg
DAILY MAHNAZ Administration
Clopidogrel Bisulfate 75 mg 06/13/25 08:00 03/22/25 09:32
Clopidogrel 75 Mg Tablet PO 04/19/25 07:59 75 mg
DAILY MAHNAZ Administration
Diltiazem HCl 240 mg 03/22/25 08:00 03/22/25 09:31
Diltiazem 240 Mg Extended Release (24 H) Capsule PO 04/19/25 07:59 240 mg
DAILY MAHNAZ Administration
Duloxetine HCl 30 mg 03/22/25 08:00 03/22/25 09:30
Duloxetine Delayed Release 30 Mg Capsule PO 04/19/25 07:59 30 mg
DAILY MAHNAZ Administration
Estradiol 0 applic 03/22/25 08:00 03/22/25 09:35
Estradiol 0.01% (Vaginal Cream) 42.5 Gram Tube VAG 04/19/25 07:59 1 applic
DAILY MAHNAZ Administration
Hydralazine HCl 25 mg 03/21/25 20:00 03/22/25 09:33
Hydralazine 25 Mg Tablet PO 04/18/25 19:59 25 mg
BID MAHNAZ Administration
Sodium Chloride 1,000 mls @ 80 mls/hr 03/21/25 17:33 03/22/25 05:11
Nss IV 1,000 mls
.[id number] MAHNAZ Administration
Levothyroxine Sodium 25 mcg 03/22/25 06:00 03/22/25 05:11
Levothyroxine 25 Mcg Tablet PO 04/19/25 05:59 25 mcg
DAILY @ 0600 MAHNAZ Administration
Magnesium 84 mg 03/22/25 08:00 03/22/25 09:31
Magnesium Lactate 84 Mg Tablet PO 04/19/25 07:59 84 mg
DAILY MAHNAZ Administration
Multivitamins Therapeutic 1 tablet 03/22/25 08:00 03/22/25 09:33
Multivitamin Tablet PO 04/19/25 07:59 1 tablet
DAILY MAHNAZ Administration
Pantoprazole Sodium 40 mg 03/22/25 08:00 03/22/25 09:30
Pantoprazole 40 Mg Delayed Release Tablet PO 04/19/25 07:59 40 mg
DAILY MAHNAZ Administration
Sodium Chloride 0 flush 03/21/25 18:00
Sodium Chloride 0.9% (Flush) Syringe IV 04/18/25 17:59
PER PROTOCOL MAHNAZ
Home Medications
�Medication �Instructions �Recorded
cholecalciferol (vitamin D3) 25 1 tab PO DAILY 06/02/21
mcg (1,000 unit) tablet
coQ10 (ubiquinol) 100 mg capsule 300 mg PO DAILY 06/02/21
Held on 09/20/23.
Instructions: Resume on
09/27/23.
krill 500 mg-omega-3 150 mg-dha 45 1 cap PO DAILY 06/02/21
mg-epa 75 ly-aixarhq-lilaj capsule
(krill oil)
Held on 09/20/23.
Instructions: Resume on
09/27/23.
simvastatin 20 mg tablet 20 mg PO QPM 06/02/21
Bifidobacterium infantis 4 mg 4 mg PO DAILY 08/25/23
capsule (Align (B.infantis))
levothyroxine 25 mcg tablet 25 mcg PO DAILY 08/25/23
magnesium 200 mg tablet 400 mg PO DAILY 08/25/23
fikojoowpmlv-kzituyjq-gulbyb tablet 1 tab PO DAILY 08/25/23
hydralazine 25 mg tablet 25 mg PO BID #0 tabs 09/20/23
omeprazole 40 mg capsule,delayed 40 mg PO DAILY #0 caps 09/20/23
release
valsartan 320 1 tab PO DAILY #0 tabs 09/20/23
mg-hydrochlorothiazide 25 mg
tablet (Diovan HCT)
buprenorphine 20 mcg/hour weekly 20 mcg transdermal WEEKLY 03/21/25
transdermal patch
diltiazem HCl 240 mg capsule,24 240 mg PO DAILY 03/21/25
hr,extended release
duloxetine 30 mg capsule,delayed 30 mg PO DAILY 03/21/25
release sprinkle
estradiol 0.01% (0.1 mg/gram) 1 appful vaginal DAILY 03/21/25
vaginal cream (Estrace)
NIH Stroke Score
Subsequent NIH Scale
Date of Subsequent NIH Scale: 03/22/25
Time of Subsequent NIH Scale: 08:30
NIH Stroke Score
Level of Consciousness: 0 - Alert
LOC Questions: 0-Answers both correctly
LOC Commands: 0-Performs both correctly
Best Horizontal Gaze: 0-Normal
Visual Khan: 0=Normal, no visual loss
Facial Palsy: 1=Minor paralysis
Motor - Right Arm: 0=No drift 10 seconds
Motor - Left Arm: 1=Drift < 10 seconds
Motor - Right Le-No drift 5 seconds
Motor - Left Le-No drift 5 seconds
Limb Ataxia: 0-Absent
Sensation: 0-Normal
Best Language: 0-No aphasia
Dysarthria: 0-Normal
Extinction and Inattention: 0-No abnormality
NIH Total Score:: 2
Modified [place] (mRS) Score
Modified Anne Scale (mRS): Moderate disability. Requires some help, able to walk unassisted.
Score: 3

Documented by User: Foreign Meneses MD 03/22/25 13:01
NIH Stroke Score
NIH Stroke Score
NIH Total Score:: 2
Modified [place] (mRS) Score
Score: 3
--- NOTE | 2025-03-22 09:25 | CON.CAR ---
Addendum entered and electronically signed by Martin Calix MD 03/22/25 12:47:
I saw and examined the patient.
The PATIENT OBSERVATION ASSISTANT's note was reviewed and I agree with the note.
Comment:
85-year-old woman with coronary artery calcification, hyperlipidemia, and hypertension who presented to the ER with altered mental status. Head CT with no acute intracranial abnormality. She was found to have an abnormal UA but in the setting of
chronic Mccabe catheter. Neurology has been consulted but has not seen her yet. No obvious cause of her altered mental status has been identified. Cardiology is consulted for abnormal troponin (1.2). It is unclear why this was checked. She
denies chest pain, shortness of breath, palpitations, lightheadedness, and diaphoresis. She is not a great historian due to her altered mental status on the background of dementia.
Physical exam reveals no acute distress, RRR, no murmurs, clear lungs, no edema. She is very confused.
ECG 03/22/2025: Sinus tachycardia, HR 110 bpm, right bundle branch block, LAFB (unchanged from prior)
TTE 03/22/2025: LVEF 65-70%, no regional wall motion abnormalities, moderate MS, mild/mod MR, mild TR, PASP 40-45 mmHg
Troponin elevation. I suspect this is nonischemic in nature given her lack of symptoms and nonischemic ECG, however I do not have a great explanation. Troponin can be elevated in the setting of stroke but we do not know if she had a stroke. Trend
troponin to peak. Monitor for any CV symptoms. Follow-up neurology assessment.
SVT. She has intermittent SVT on telemetry. Asymptomatic. Continue diltiazem.
Original Note:
Consultation
Consultation Request
Date/Time Consultation Requested: 03/22/2025 08:00
Date/Time Consultation Performed: 03/22/2025 09:50
Requesting Provider: Dr. oGtti
Performing Provider: BART Zeng for Dr. Calix
Reason for Consultation: Abnormal troponin
Medical History
-
Chief Complaint: Change in mental status
History of Present Illness:
Catrachita Crzu is an 85-year-old female (former patient of Dr. Richards, now follows with Dr. Ashraf), with coronary artery calcification seen on CT scan, mixed hyperlipidemia, hypertension, RBBB with LAFB, uterine cancer, GERD, gastric ulcer who
presented to the emergency department with a chief complaint of change in mental status. She woke up yesterday morning and felt off. She said she was 'out of it' and was confused and did not know where she was. This persisted for approximately 2
hours. She presented to the emergency department for evaluation. Her EKG showed sinus tachycardia. Her bifascicular block is unchanged. She had no symptoms of chest pain or shortness of breath. There was a concern for TIA. A troponin was
checked and it was found to be abnormal.
She was found have an abnormal UA. She has a chronic Mccabe. This was exchanged in the emergency department.
Past Medical History
Past Medical History: Cancer (Uterine) and GERD
Past Surgical History: Cholecystectomy, Gynecological and Orthopedic
Social History
Tobacco: Non-Smoker
Alcohol: None
Living: With Family
Employment: Retired
Family History
Family History: Reviewed & Not Pertinent
Allergies / Home Medications
Allergy/AdvReac Type Severity Reaction Status Date / Time
No Known Allergies Allergy Verified 03/21/25 12:20
�Medication �Instructions �Recorded �Confirmed �Type
cholecalciferol (vitamin D3) 25 1 tab PO DAILY 06/02/21 03/21/25 History
mcg (1,000 unit) tablet
coQ10 (ubiquinol) 100 mg capsule 300 mg PO DAILY 06/02/21 03/21/25 History
Held on 09/20/23.
Instructions: Resume on
09/27/23.
krill 500 mg-omega-3 150 mg-dha 45 1 cap PO DAILY 06/02/21 03/21/25 History
mg-epa 75 gq-bmwoggp-wcrze capsule
(krill oil)
Held on 09/20/23.
Instructions: Resume on
09/27/23.
simvastatin 20 mg tablet 20 mg PO QPM 06/02/21 03/21/25 History
Bifidobacterium infantis 4 mg 4 mg PO DAILY 08/25/23 03/21/25 History
capsule (Align (B.infantis))
levothyroxine 25 mcg tablet 25 mcg PO DAILY 08/25/23 03/21/25 History
magnesium 200 mg tablet 400 mg PO DAILY 08/25/23 03/21/25 History
mundnmjbrnvy-amnrswcf-jyiyuc tablet 1 tab PO DAILY 08/25/23 03/21/25 History
hydralazine 25 mg tablet 25 mg PO BID #0 tabs 09/20/23 03/21/25 Rx
omeprazole 40 mg capsule,delayed 40 mg PO DAILY #0 caps 09/20/23 03/21/25 Rx
release
valsartan 320 1 tab PO DAILY #0 tabs 09/20/23 03/21/25 Rx
mg-hydrochlorothiazide 25 mg
tablet (Diovan HCT)
buprenorphine 20 mcg/hour weekly 20 mcg transdermal WEEKLY 03/21/25 03/21/25 History
transdermal patch
diltiazem HCl 240 mg capsule,24 240 mg PO DAILY 03/21/25 03/21/25 History
hr,extended release
duloxetine 30 mg capsule,delayed 30 mg PO DAILY 03/21/25 03/21/25 History
release sprinkle
estradiol 0.01% (0.1 mg/gram) 1 appful vaginal DAILY 03/21/25 03/21/25 History
vaginal cream (Estrace)
Review of Systems
-
History Source: Patient
All other systems: Negative unless noted
Constitutional: Fatigue
EENT: No Symptoms
Respiratory: No Symptoms
Cardiac: No Symptoms
Abdomen/GI: No Symptoms
: No Symptoms
Musculoskeletal: No Symptoms
Skin: No Symptoms
Neurological: No Symptoms
Endocrine: No Symptoms
Hematologic/Lymphatic: No Symptoms
Physical Exam
Vital Signs
Temp Pulse Resp BP Pulse Ox
97.7 F 95 18 140/69 97
03/22/25 07:58 03/22/25 07:58 03/22/25 07:58 03/22/25 07:58 03/22/25 07:58
Lab Results
03/21/25 12:30
03/21/25 12:30
Troponin I 1.210 ng/ml H* 03/22/25 06:44
Physical Exam
General: Well Developed, Well Nourished, No Apparent Distress and Comfortable
HEENT: Normocephalic, Anicteric and Moist Mucous Membranes
Respiratory: Clear and Non Labored Respirations
Cardiac: S1/S2 and Regular Rhythm; Negative Peripheral Edema
Breast: Deferred by me
GI: Soft, Non Tender, Non Distended and Normal Bowel Sounds
Rectal: Deferred by Provider
Genito-urinary: No Costovertebral Tender
Musculoskeletal: No Clubbing and No Cyanosis
Skin: Warm and Dry
Neuro: AO x 3
Hematologic/Lymphatic: No Lymphadenopathy
Psych: Calm
Impression / Plan
-
I/P: 85F with coronary artery calcification seen on CT scan, mixed hyperlipidemia, hypertension, RBBB with LAFB, uterine cancer, GERD, gastric ulcer who presented to the emergency department with a chief complaint of change in mental status.
Cardiology is consulted for abnormal troponin.
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
Abnormal troponin, type unknown
- Trend troponin to peak, troponin 1.2009
- EKG stable and she has no chest pain
Bifascicular block, RBBB with LAFB, chronic, stable
Change in mental status, concern for TIA, neurology following
KEON, BMP pending
Abnormal UA
- Mccabe catheter exchanged in ER, this is a chronic Mccabe
Anemia, chronic, no acute bleeding
Pulmonary hypertension, PASP 53 mmHg on prior echocardiogram, update
Coronary artery calcification, LDL at goal on simvastatin
Dyslipidemia, on simvastatin
Prior uterine cancer status post surgery, chemotherapy, and XRT, follows with [facility]
Data Reviewed
-
EKG: Report Reviewed by me
Medical Tests (Nuc Med, Echo etc): Report Reviewed by me
Labs: Labs Reviewed by me
Old Records: Reviewed
--- NOTE | 2025-03-22 09:29 | PTOTSP ---
Speech Therapy Assessment
Limited assessment of cognitive communication skills as patient repeatedly declined to participate in most testing tasks. While patient was grossly oriented, she did exhibit slow processing, topic perseverations, reduced short term memory and
questionable insight. No obvious aphasia. Swallowing appears wfl.
Overall, patient demonstrating at least some cognitive/communication deficits that impact functional performance. Unclear of underlying cause of deficits but further testing in outpatient setting recommended if issues persist. If further brain
imaging is positive, ST will follow up, otherwise, no skilled ST indicated in acute setting.
[2025-03-22] MEDS: CYMBALTA DELAYED RELEASE 30 MG PO (09:30)
[2025-03-22] MEDS: PROTONIX 40 MG PO (09:30)
[2025-03-22] MEDS: CARDIZEM CD 240 MG PO (09:31)
[2025-03-22] MEDS: VITAMIN D3 (cholecalciferol) 25 MCG PO (09:31)
[2025-03-22] MEDS: MAG-TAB SR 84 MG PO (09:31)
[2025-03-22] MEDS: LOW STRENGTH ASPIRIN 81 MG PO (09:32)
[2025-03-22] MEDS: PLAVIX 75 MG PO (09:32)
[2025-03-22] MEDS: APRESOLINE 25 MG PO (09:33)
[2025-03-22] MEDS: THERAGRAN 1 TABLET PO (09:33)
[2025-03-22] MEDS: ESTRACE 0.01% VAGINAL CREAM 1 APPLIC VAG (09:35)
--- NOTE | 2025-03-22 11:32 | CM ---
Patient seen bedside, initial assessment completed. Patient is a 85-year-old female with past medical history significant for hypertension, hyperlipidemia, ASCVD, hypothyroid, GERD and gout who presented to [facility] ED for evaluation of change in mental
status.
Patient resides w/ spouse in a 2STH, 12 steps total to enter w/ a landing between. Patient uses RW to ambulate, independent w/ ADLs. No DME identified. Denies SNF/HC hx.
Address, points of contact and insurance verified
PCP: Barb Valencia
Pharmacy: [facility]
Patient admitted obs. WHITAKER form verbally reviewed, copy provided, copy on chart
PT/OT assessed, rec SNF.
Plan: SNF recommended. CM to review options w/ patient if agreeable
[2025-03-22 14:52] LABS: Blood Urea Nitrogen 23 mg/dl (7-17); Carbon Dioxide 24 mmol/L (22-30); Chloride 105 mmol/L (98-107); Estimated Creatinine Clearance 34 ml/min; Glucose 122 mg/dl (70-99); Potassium 4.2 mmol/L (3.5-5.1); Sodium 137 mmol/L (135-145); eGFR 49.55
[2025-03-22 15:03] LABS: Troponin I 0.948 ng/ml
--- NOTE | 2025-03-22 15:52 | FALL ---
Description of Fall: at door way saying his fell, entered room to find patient sitting on floor next to chair
Injuries Noted: no injuries noted, patient denied hitting head or any injuries
Action Taken:patient assisted to bed, bed alarm in place and functioning, vitals and neuro check completed.
Name of Provider Notified: Dr Gotti via tiger text
--- NOTE | 2025-03-22 15:59 | CON.ID ---
Consultation
-
Date/Time Consultation Requested: March 22, 2025 1057
Date/Time Consultation Performed: March 22, 2025 1600
Requesting Provider: Dr. Wil Gotti
Performing Provider: Dr. Samantha Alcantara
Reason for Consultation: Pseudomonas UTI versus colonization
Chief Complaint / Past History
Chief Complaint
Change in mental status
History of Present Illness
History obtained from the patient as well as from her son at bedside. She is a 85-year-old female with stage IV uterine cancer currently receiving chemotherapy and radiation at [place], she has chronic indwelling Grossman catheter due to pelvic mass
who presented to the hospital March 21 due to acute onset of confusion and lethargy. On March 20, patient woke up and noted her Grossman was dislodged. She was brought to the ER and the Grossman was exchanged. She was then discharged to home.
While at home patient felt weak. Yesterday morning, patient was very confused, speech was slurred. She was very lethargic. Patient was therefore brought to the ER. Afebrile. Urine analysis positive nitrite, 3+ leukocyte esterase, 50-60 white
blood cells. She received [address] of the head was unremarkable. Today's brain MRI showed a small 4.4 mm enhancing lesion in the right cerebellar hemisphere. Son is concerned about possible metastases to her brain since
patient's mental status has been slowly declining. However yesterday's mental status was an acute change. Patient complaining of weakness and poor appetite. No fever or chills. No headache. No cough or shortness of breath. No nausea or
vomiting. No diarrhea. No abdominal pain. No suprapubic pain. No flank pain. No back pain.
Past History
Additional Past Medical History:
Hypertension
Hypothyroidism
CAD
Stage 4 uterine cancer status post hysterectomy on chemo, radiation [facility]
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
Gout
History of right breast lumpectomy -atypical lobular hyperplasia 2022
Cholecystectomy
R shoulder replacement
Past Surgical History: Cardiac
Allergy History:
No Known Allergies Allergy (Verified 03/21/25 12:20)
Medications Reviewed: Yes
Current Antibiotics:
Ceftriaxone x 1
Social History
Tobacco: Non-Smoker
Alcohol: None
Drug: None
Personal:
Family History
Family History: Not Pertinent
Review of Systems
Review of Systems
General: Change in Appetite
HEENT: Negative Sinus Problems, Headache or Pharyngitis
Cardiovascular: Negative Chest Pain or Dyspnea
Respiratory: Negative Dyspnea or Cough
Gasteroenterology: Negative Nausea, Vomiting or Diarrhea
Genital / Urological: Negative Flank Pain
Endocrine: Weakness and Fatigue
All systems: All other systems were reviewed and were negative
Vital Signs
Temp Pulse Resp BP Pulse Ox
97.8 F 95 18 137/59 98
03/22/25 15:48 03/22/25 15:48 03/22/25 15:48 03/22/25 15:48 03/22/25 15:48
Physical Exam
Physical Exam
Constitutional: Chronically Ill
Head: Other (No frontal cells or sinus tenderness)
Eyes: No Conjunctival Hemorrhage and Sclera Anicteric
Cardiovascular: Regular Rate and S1/S2
Pulmonary: Clear
Gastrointestinal: Soft, Non Tender, Non Distended and Normal Bowel Sounds
Genito-Urinary: Grossman and Clear Urine; Negative Suprapubic Tenderness or CVA Tenderness
Extremities: Negative Edema
Musculoskeletal: Negative Spinal Tenderness
Neurological: Awake
Lines: Port (Right chest wall currently not accessed)
Lab / Diagnostic Study Results
03/21/25 12:30
03/22/25 09:27
Abs Immat Gran (auto) 0.0 10^3/uL (0-0.05) 03/21/25 12:30
Absolute Neuts (auto) 7.7 10^3/uL (1.4-6.5) H 06/12/25 12:30
Absolute Lymphs (auto) 0.4 10^3/uL (1.2-3.4) L 03/21/25 12:30
Absolute Monos (auto) 1.0 10^3/uL (0.1-0.6) H 03/21/25 12:30
Absolute Basos (auto) 0.0 10^3/uL (0-0.2) 03/21/25 12:30
Immature Gran % 0.4 % (0-0.5) 03/21/25 12:30
Neutrophils % 84.4 % (42.2-75.2) H 03/21/25 12:30
Lymphocytes % 3.9 % (20.5-51.1) L 03/21/25 12:30
Monocytes % 10.7 % (1.7-9.3) H 03/21/25 12:30
Eosinophils % 0.3 % (0-6) 03/21/25 12:30
Basophils % 0.3 % (0-2) 03/21/25 12:30
ESR Cancelled 03/21/25 17:33
PT 14.4 Sec (11.4-14.6) 03/22/25 06:43
INR 1.07 03/22/25 06:43
Ur Squamous Epith Cells 0-2 /LPF (Few) 03/21/25 12:30
Microbiology Results
Micro:
03/21/25 12:30 Urine Culture - Preliminary
Urine Pseudomonas species
03/22/25 Brain MRI: Moderate bilateral frontal and parietal lobe volume loss. Minimal periventricular white matter leukoaraiosis. Small 4.4 mm enhancing lesion in the right cerebellar hemisphere (probably extra-axial in location). Diagnostic
possibilities are (1) a small leptomeningeal metastasis, (2) a small vascular malformation, (3) mild inflammatory or infectious disease or (4) less likely a subacute ischemic infarct.
03/22/25 Head/Neck CTA No acute vascular pathology. No M1 and M2 occlusion. 50-69% right proximal internal carotid artery stenosis
Assessment / Plan
# Suspect Pseudomonas CA-UTI, present on admission
- Recent grossman malfunction, exchanged in ED 03/20
- Start Zosyn pending susceptibility
# Acute change in mental status/TME
# stage IV uterine cancer on chemo at [facility]
- Brain MRI with 4.4 mm enhancing lesion right cerebellum
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
Hypertension
Hypothyroidism
CAD
Stage 4 uterine cancer status post hysterectomy on chemo, radiation [facility]
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
Gout
History of right breast lumpectomy -atypical lobular hyperplasia 2022
Cholecystectomy
R shoulder replacement
[2025-03-22 16:17] LABS: TSH 3.26 uIU/ml (0.47-4.68)
[2025-03-22 16:52] LABS: Folate 16.7 ng/ml (2.76-20); Vitamin B12 781 pg/ml (239-931)
[2025-03-22] MEDS: ZOSYN 50 IV ×2 (17:51→23:12)
[2025-03-22] MEDS: LIPITOR 10 MG PO (17:51)
[2025-03-22] MEDS: VITAMIN B1 100 MG PO (17:52)
--- NOTE | 2025-03-22 17:52 | WOUNDNOTE ---
WO RN NOTE: Reviewed chart and met with patient. WOC RN consulted for possible DTI of sacrum. Upon assessment sacrum appears to have chronic discoloration. Patient turns in bed with minimal assistance. Patient is on a [employer] accumax. Heels
intact and off-loaded with pillows under calves. RN Sandhya given update. Will sign off.
[2025-03-22] MEDS: ATIVAN 0.25 MG IV (20:36)
[2025-03-22] MEDS: NSS (PRESERVATIVE FREE) 0.125 ML IV (20:36)
[2025-03-22] MEDS: APRESOLINE PO (20:54)
[2025-03-22 21:42] LABS: INR 1.06; PT 14.1 Sec (11.4-14.6)
[2025-03-23] VITALS (9 sets, daily range): BP systolic 72–150; BP diastolic 49–63
[2025-03-23] MEDS: SYNTHROID 25 MCG PO (05:29)
[2025-03-23] MEDS: ZOSYN 50 IV ×4 (05:29→23:08)
--- NOTE | 2025-03-23 07:38 | W.PN.NEURO.1 ---
Today's Communication / Plan
-
Provide thiamine
May discontinue clopidogrel at this time based on absence of clear stroke or TIA
Discontinue aspirin, no evidence of prior neurological injury requiring the use of same
Perform lumbar puncture due to lack of clarity regarding acute change in mental status, appreciate interventional radiology assistance
Offer lorazepam 1 mg prior to procedure
Check blood work for potential metabolic causes including Willard's
Right internal carotid artery stenosis will require follow-up
Neuro Assessment/Plan
Assessment
Abrupt onset of change mental status on the backdrop of patient having had 2 different types of cancer and MRI not demonstrative of a significant lesion with a questionable area of enhancement in the right cerebellum
Differential diagnosis includes leptomeningeal carcinomatosis which is less likely based on MRI results, SREAT (Willard's thyroiditis)
Excluded acute ischemic stroke
Patient with overnight agitation and subsequent lethargy
Plan
Provide thiamine
May discontinue clopidogrel at this time based on absence of clear stroke or TIA
Discontinue aspirin, no evidence of prior neurological injury requiring the use of same
Perform lumbar puncture due to lack of clarity regarding acute change in mental status, appreciate interventional radiology assistance
Offer lorazepam 1 mg prior to procedure
Check blood work for potential metabolic causes including Willard's
Right internal carotid artery stenosis will require follow-up
Will follow-up test result
Subjective/Objective
Subjective Data
Date of Service: March 23, 2025
Patient appears sedated. Reports no changes to symptoms
Objective Data
Vital Signs
Temp Pulse Resp BP Pulse Ox
36.6 C 86 22 128/54 98
03/23/25 03:26 03/23/25 03:26 03/23/25 03:26 03/23/25 03:26 03/23/25 03:26
Lab Results
03/21/25 12:30
03/22/25 09:27
PT 14.1 Sec (11.4-14.6) 03/22/25 21:21
INR 1.06 03/22/25 21:21
APTT 38.0 Sec (23.4-35.0) H 03/22/25 06:43
Sodium Cancelled 03/22/25 09:27
Potassium Cancelled 03/22/25 09:27
BUN Cancelled 03/22/25 09:27
Glucose Cancelled 03/22/25 09:27
Calcium Cancelled 03/22/25 09:27
LDL Cholesterol, Calc 49 mg/dl 03/22/25 06:44
Vitamin B12 781 pg/ml (239-931) 03/22/25 06:44
Patient Allergies
No Known Allergies Allergy (Verified 03/21/25 12:20)
Review of Systems
-
Unable to obtain full review of systems at this time due to: Lethargy
History Source: Patient
All other systems: Reviewed and negative
Physical Exam
-
General: No Apparent Distress and Appears Stated Age
HEENT: Anicteric and Moist Mucous Membranes
Neck: Full Range of Motion
Respiratory: No Dyspnea
Cardiac: No JVD
GI: Non-distended
Skin: Unremarkable
Extremities: No Clubbing, No Cyanosis and No Edema
Psych: Negative Intact Judgement/Insight
Extended Neurological Exam
Mood & Affect: Unable to Assess
Attention Span & Concentration: Awake and Interactive; Negative Alert
Memory: Reduced (2020, wrong location)
Tremor: Hand Tremor Absent and Head Tremor Absent
Involuntary Movement: None
Speech: Quality Unremarkable and Moderately Reduced Output
Cranial Nerve II: Left Eye: Visual Khan Grossly Intact
Cranial Nerve II: Right Eye: Visual Khan Grossly Intact
Cranial Nerves III, IV, : Extraocular Movement: Other (Tracks with eyes appropriately)
Cranial Nerve VII: Facial Symmetry: Normal Facial Symmetry
Cranial Nerve VIII: Hearing: Unremarkable Hearing to Normal Conversational Volume
Muscle Strength, Overall: Spontaneously Moves (All extremities)
Muscle Bulk & Tone: Bulk Unremarkable and Tone Unremarkable
Cold Sensation: Unable to Assess
Vibration Sensation: Unable to Assess
Data Reviewed
-
MRI Head: Report Reviewed and Image Reviewed
Labs: Report Reviewed
Reviewed with: Physician, Patient and Family
Old Records: Summarized
Past History
Past History
ED Past Medical History: Cancer (breast, uterine), GERD, HTN, Hypercholesterolemia, Hypothyroidism and Other (gout, iron deficiency, mild pulm HTN)
ED Past Surgical History: Cholecystectomy and Orthopedic (Rotator cuff repair left)
Social History
Tobacco: Non-smoker
Alcohol: None
Personal:
Living: with family
Employment: Retired
Family History
Family History: Other (Noncontributory)
Medications
-
Medications:
Generic Name Dose Route Start Last Admin
Trade Name Freq PRN Reason Stop Dose Admin
Acetaminophen 650 mg 03/21/25 17:33
Acetaminophen 325 Mg Tablet PO 04/18/25 17:32
Q4HPRN PRN
PEÑA, mild pain, or temp >100.4F
Aspirin 81 mg 03/22/25 08:00 03/22/25 09:32
Aspirin 81 Mg Chewable Tablet PO 04/19/25 07:59 81 mg
DAILY MAHNAZ Administration
Atorvastatin Calcium 10 mg 03/21/25 18:00 03/22/25 17:51
Atorvastatin (Lipitor) 10 Mg Tablet PO 04/18/25 17:59 10 mg
QPM MAHNAZ Administration
Cholecalciferol 25 mcg 03/22/25 08:00 03/22/25 09:31
Cholecalciferol (Vitamin D3) 25 Mcg Tablet (1,000 Units) PO 04/19/25 07:59 25 mcg
DAILY MAHNAZ Administration
Clopidogrel Bisulfate 75 mg 03/22/25 08:00 03/22/25 09:32
Clopidogrel 75 Mg Tablet PO 04/19/25 07:59 75 mg
DAILY MAHNAZ Administration
Diltiazem HCl 240 mg 03/22/25 08:00 03/22/25 09:31
Diltiazem 240 Mg Extended Release (24 H) Capsule PO 04/19/25 07:59 240 mg
DAILY MAHNAZ Administration
Duloxetine HCl 30 mg 03/22/25 08:00 03/22/25 09:30
Duloxetine Delayed Release 30 Mg Capsule PO 04/19/25 07:59 30 mg
DAILY MAHNAZ Administration
Estradiol 0 applic 03/22/25 08:00 03/22/25 09:35
Estradiol 0.01% (Vaginal Cream) 42.5 Gram Tube VAG 04/19/25 07:59 1 applic
DAILY MAHNAZ Administration
Hydralazine HCl 25 mg 03/21/25 20:00 03/22/25 20:54
Hydralazine 25 Mg Tablet PO 04/18/25 19:59 Not Given
BID MAHNAZ
Piperacillin Sod/Tazobactam Sod 3.375 gram in 50 mls @ 100 mls/hr 03/22/25 18:00 03/23/25 05:29
Zosyn IV 50 mls
Q6H MAHNAZ Administration
Levothyroxine Sodium 25 mcg 03/22/25 06:00 03/23/25 05:29
Levothyroxine 25 Mcg Tablet PO 04/19/25 05:59 25 mcg
DAILY @ 0600 MAHNAZ Administration
Magnesium 84 mg 03/22/25 08:00 03/22/25 09:31
Magnesium Lactate 84 Mg Tablet PO 04/19/25 07:59 84 mg
DAILY MAHNAZ Administration
Multivitamins Therapeutic 1 tablet 03/22/25 08:00 03/22/25 09:33
Multivitamin Tablet PO 04/19/25 07:59 1 tablet
DAILY MAHNAZ Administration
Pantoprazole Sodium 40 mg 03/22/25 08:00 03/22/25 09:30
Pantoprazole 40 Mg Delayed Release Tablet PO 04/19/25 07:59 40 mg
DAILY MAHNAZ Administration
Sodium Chloride 0 flush 03/21/25 18:00
Sodium Chloride 0.9% (Flush) Syringe IV 04/18/25 17:59
PER PROTOCOL MAHNAZ
Thiamine HCl 100 mg 03/22/25 19:00 03/22/25 17:52
Thiamine 100 Mg Tablet PO 03/24/25 08:01 100 mg
DAILY MAHNAZ Administration
--- NOTE | 2025-03-23 08:12 | W.PN.CD ---
Today's Communication / Plan
-
Troponin downtrending
Normal cardiac testing and asymptomatic
Cardiology will sign off. Call with questions.
Impression / Plan
-
I/P: 85F with coronary artery calcification seen on CT scan, mixed hyperlipidemia, hypertension, RBBB with LAFB, uterine cancer, GERD, gastric ulcer who presented to the emergency department with a chief complaint of change in mental status.
Cardiology is consulted for abnormal troponin.
Primary investigation specialist: Dr. Ashraf
Abnormal troponin, type unknown
- Peak troponin .2009. Now downtrending. Nonischemic ECG and normal TTE. No chest pain.
- Suspect nonischemic myocardial injury in the setting of sepsis.
Pseudomonal UTI
- Continue antibiotics
- ID following
SVT
- Asymptomatic
- Continue Diltiazem
Bifascicular block, RBBB with LAFB, chronic, stable
Change in mental status, concern for TIA, neurology following
Anemia, chronic, no acute bleeding
Pulmonary hypertension, PASP 53 mmHg on prior echocardiogram, update
Coronary artery calcification, LDL at goal on simvastatin
Dyslipidemia, on simvastatin
Prior uterine cancer status post surgery, chemotherapy, and XRT, follows with [facility]
Subjective: No CV complaints.
Physical Exam
Vital Signs/Labs
Vital Signs
Temp Pulse Resp BP Pulse Ox
97.8 F 70 16 125/51 98
03/23/25 03:26 03/23/25 07:00 03/23/25 07:00 03/23/25 07:00 03/23/25 07:00
03/22/25 03/23/25 03/24/25
06:59 06:59 06:59
Actual Weight 144 lb 4.8 oz
03/21/25 12:30
03/22/25 09:27
PT 14.1 Sec (11.4-14.6) 03/22/25 21:21
INR 1.06 03/22/25 21:21
APTT 38.0 Sec (23.4-35.0) H 03/22/25 06:43
Triglycerides 107 mg/dl (10-149) 03/22/25 06:44
LDL Cholesterol, Calc 49 mg/dl 03/22/25 06:44
VLDL Cholesterol, Calc 21 mg/dl (0-30) 03/22/25 06:44
HDL Cholesterol 56 mg/dl 03/22/25 06:44
TSH 3.26 uIU/ml (0.47-4.68) 03/22/25 06:44
LAB Results
03/22/25 03/22/25
13:58
Troponin I 1.210 H* 0.948 H*
Physical Exam
Constitutional: No acute distress and Comfortable
Cardiovascular: Rhythm & rate is regular, Pedal edema is absent, S1S2 is normal and Murmur/rub/gallop absent
Respiratory: Respiratory effort normal and Lungs clear to auscul.
Data Reviewed
-
Date of Service: March 23, 2025
Medical Decision Making: Reviewed Test Results, Independent Historian Assessment, Test Interpretation and Review of Case with other Provider
EKG: Tracing Personally Visualized and interpreted
Echo: Report Reviewed by me
Labs: Labs Reviewed by me
[2025-03-23] MEDS: APRESOLINE 25 MG PO (10:10)
[2025-03-23] MEDS: CARDIZEM CD 240 MG PO (10:10)
[2025-03-23] MEDS: CYMBALTA DELAYED RELEASE 30 MG PO (10:10)
[2025-03-23] MEDS: VITAMIN B1 100 MG PO (10:11)
[2025-03-23] MEDS: PROTONIX 40 MG PO (10:11)
[2025-03-23] MEDS: MAG-TAB SR 84 MG PO (10:11)
[2025-03-23] MEDS: VITAMIN D3 (cholecalciferol) 25 MCG PO (10:11)
[2025-03-23] MEDS: FLUSH (NSS) 1 FLUSH IV (10:11)
[2025-03-23] MEDS: ESTRACE 0.01% VAGINAL CREAM 1 APPLIC VAG (10:12)
--- NOTE | 2025-03-23 10:18 | PTCARENOTE ---
Report provided to Oma in IR. Pt transported at this time to IR.
--- NOTE | 2025-03-23 10:26 | W.PN.HOSP.TC ---
Today's Communication/Plan
-
see plan
Assessment / Plan
Assessment / Plan
Gen: NAD, Awake and alert, NCAT
Eyes: EOMI, PERRLA, no scleral icterus.
Neck: supple.
CV: remains RRR, +S1/S2, no m/r/g.
Resp: CTAB anteriorly, no rales, wheezes, or rhonchi.
Abd: remains +BS, soft, NT, ND
Skin: No rashes.
Neuro: CN 2-12 intact, non-focal.
Psych: Normal mood and affect.
03/21/25 12:30 Urine Urine Culture - Final
Pseudomonas aeruginosa
CT Brain: No acute intracranial abnormality identified.
Echo: EF 65-70%. No RWMA. Normal RV sz/fxn. Massively dilated left atrium. Moderately dilated right atrium. Moderate mitral stenosis; mean gradient 7 mmHg. Mild to moderate mitral regurgitation. Mild TR. Estimated pulmonary artery pressure of
40-45mmHg. No prior study available for comparison.
MRI brain:
1. Moderate bilateral frontal and parietal lobe volume loss.
2. Minimal periventricular white matter leukoaraiosis.
3. Small 4.4 mm enhancing lesion in the right cerebellar hemisphere (probably extra-axial in location). Diagnostic possibilities are (1) a small leptomeningeal metastasis, (2) a small vascular malformation, (3) mild inflammatory or infectious
disease or (4) less likely a subacute ischemic infarct.
4. Severe right-sided facet joint arthrosis at C4/C5.
CTA head/neck: No acute intracranial pathology. No acute vascular pathology. No M1 and M2 occlusion. 50-69% right proximal internal carotid artery stenosis. Multilevel degenerative disc disease.
Acute metabolic encephalopathy:
-imaging above
-likely due to acute UTI in the setting of underlying dementia exacerbated by hospital-acquired delirium
-cont Zosyn as per ID
-chronic grossman, was changed in ER after having become dislodged on 03/20/25
-afebrile, no leukocytosis
-LP just completed, follow fluid studies
Elevated trop:
-denies CP
-ECG (read by me): Sinus tachy @ 104, L-axis, RBBB, LAFB, no acute ST changes, TWi V1
-suspect non-ischemic myocardial injury
-echo above
-Troponin trending down
-Etiology of elevated troponin is not entirely clear but could be due to acute infection as per discussion with cardiology today
Other problems:
KEON has been ruled out
Essential HTN: cont Hydralazine/Cardizem CD
CAD: cont statin/ASA/Plavix
HLD: cont statin
Hypothyroidism: cont Levoxyl
GERD: Cont PPI
Iron deficiency anemia, chronic, trend
h/o breast cancer and uterine cancer: follows at [facility], recent completion of chemo/XRT 2 weeks [employer]
reports bladder pressing on bladder or in bladder this is why has chronic Grossman
Gout
Mild pulmonary hypertension
FULL/SCDs
Anticipated Discharge: 24 - 48 hours
Subjective/Interval History
-
Date of Service: March 23, 2025
Patient seen in PACU just after LP completed. Denies any acute complaints.
Objective Data
-
Vital Signs:
Vital Signs
Temp Pulse Resp BP Pulse Ox
98.2 F 76 16 132/58 98
03/23/25 07:30 03/23/25 10:10 03/23/25 07:00 03/23/25 10:10 03/23/25 07:00
I&O
03/22/25 03/23/25 03/24/25
06:59 06:59 06:59
Intake Total 1939 / 1939
Output Total 300 / 300 650 / 650
Balance -300 / -300 1290 / 1290
--- NOTE | 2025-03-23 11:20 | PTCARENOTE ---
Addendum entered by Mabel Boykin 03/23/25 18:44:
Pt's low back (mid) LP site bandaid remains CDI, no complaints of pain/discomfort, no headache.
Original Note:
Received report from Oma in IR. Pt arrived back to rm [id number] at this time post lumbar puncture. Pt AAOx3, confused on time earlier, denying any pain, no headache. Lungs are CTA. Bandaid CDI of low back (mid). Educated pt and her on HOB
flat x 2hrs restriction- verbalized understanding but needing reinforcement due to occasional confusion. Call john within reach, will monitor closely.
[2025-03-23 12:14] LABS: % Basophils 0.5 % (0-2); % Eosinophils 1.5 % (0-6); % Immature Granulocytes 0.3 % (0-0.5); % Lymphocytes 6.2 % (20.5-51.1); % Monocytes 12.9 % (1.7-9.3); % Neutrophils 78.6 % (42.2-75.2); Absolute Eosinophils 0.1 10^3/uL (0-0.7); Absolute Lymphocytes 0.4 10^3/uL (1.2-3.4); Absolute Monocytes 0.8 10^3/uL (0.1-0.6); Absolute Neutrophils 4.7 10^3/uL (1.4-6.5); Hematocrit 24.4 % (37.0-47.0); Mean Corp Hgb Conc. 32.8 g/dL (33.0-37.0); Mean Corpuscular Volume 94.6 fL (81.0-99.0); Mean Platelet Volume 10.3 fL (7.4-10.4); Nucleated Red Blood Cells % 0 %; Platelet Count 292 10^3/uL (130-400); Red Blood Cell Count 2.58 10^6/uL (4.20-5.40); Red Cell Dist. Width 18.6 % (11.5-14.5)
[2025-03-23 12:53] LABS: Blood Urea Nitrogen 19 mg/dl (7-17); Calcium 8.2 mg/dl (8.4-10.2); Carbon Dioxide 26 mmol/L (22-30); Chloride 103 mmol/L (98-107); Estimated Creatinine Clearance 34 ml/min; Glucose 158 mg/dl (70-99); Potassium 3.9 mmol/L (3.5-5.1); Sodium 134 mmol/L (135-145); eGFR 49.55
[2025-03-23 13:13] LABS: Spinal Fluid Glucose 62 mg/dl (40-70); Spinal Fluid Protein 93 mg/dl (12-60)
--- NOTE | 2025-03-23 14:20 | W.PN.ID1 ---
Date of Service
Date of Service: March 23, 2025
Today's Communication
Continue Zosyn for today.
Assessment / Plan
# Pseudomonas CA-UTI, present on admission
- Recent grossman malfunction, exchanged in ED 03/20
- continue Zosyn
# Acute change in mental status/TME
# stage IV uterine cancer on chemo at [facility]
- Brain MRI with 4.4 mm enhancing lesion right cerebellum
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
Hypertension
Hypothyroidism
CAD
Stage 4 uterine cancer status post hysterectomy on chemo, radiation [facility]
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
Gout
History of right breast lumpectomy -atypical lobular hyperplasia 2022
Cholecystectomy
R shoulder replacement
Chief Complaint
-: UTI
Subjective / Review of Systems
Review of Systems: No Fever and No Chills
Vital Signs / Physical Exam
Vital Signs
Vital Signs
Temp Pulse Resp BP Pulse Ox
97.7 F 73 16 143/61 97
03/23/25 12:30 03/23/25 12:30 03/23/25 12:30 03/23/25 12:30 03/23/25 12:30
Physical Exam
Constitutional: Comfortable, Chronically Ill and Non-toxic
Eyes: Sclera Anicteric
Cardiovascular: S1/S2; Negative S3/S4
Pulmonary: Non Labored
Genito-Urinary: Grossman and Clear Urine; Negative Turbid Urine or Hematuria
Neurological: Awake and Alert
Psychological: Calm
Objective Data
Lab Data
Lab Results
03/23/25 11:34
03/23/25 11:34
ESR Cancelled 03/21/25 17:33
PT 14.1 Sec (11.4-14.6) 03/22/25 21:21
INR 1.06 03/22/25 21:21
APTT 38.0 Sec (23.4-35.0) H 03/22/25 06:43
Estimated Creat Clear 34 ml/min 03/23/25 11:34
Total Bilirubin 0.5 mg/dl (0.2-1.3) 03/21/25 12:30
AST 20 U/L (14-36) 03/21/25 12:30
ALT 12 U/L (0-35) 03/21/25 12:30
Alkaline Phosphatase 80 U/L (38-126) 03/21/25 12:30
C-Reactive Protein 20.90 mg/L (0.0-10.00) H 03/22/25 21:21
Most recent labs reviewed.
Micro Results:
03/23/25 10:53 Meningitis/Encephalitis Panel (PCR) - Final
Csf
Escherichia coli K1 Not Detected
Haemophilus influenzae Not Detected
Listeria monocytogenes Not Detected
Neisseria meningitidis Not Detected
Cytomegalovirus (CMV) Not Detected
Streptococcus agalactiae Not Detected
Streptococcus pneumoniae Not Detected
Enterovirus Not Detected
Herpes simplex virus 1 Not Detected
Herpes simplex virus 2 Not Detected
Human herpesvirus 6 Not Detected
Human parechovirus Not Detected
Varicella zoster virus Not Detected
C. neoformans/gattii Not Detected
03/23/25 10:53 Fungal Culture - Preliminary
Csf Culture in progress.
Positive cultures are reported as soon as detected.
Final report to follow in four to five weeks.
03/23/25 10:53 CSF Culture - Pending
Csf Gram Stain - Pending
03/23/25 10:53 Acid Fast Bacilli Smear - Pending
Csf Acid Fast Bacilli Culture - Pending
03/21/25 12:30 Urine Culture - Final
Urine Pseudomonas aeruginosa
M.I.C. RX
--------- ---
Aztreonam <=4 S
Cefepime <=2 S
Ceftazidime 4 S
Ciprofloxacin <=0.25 S
Meropenem <=1 S
Piperacillin/Tazobactam <=8 S
Tobramycin <=2 S
03/22/25 Brain MRI: Moderate bilateral frontal and parietal lobe volume loss. Minimal periventricular white matter leukoaraiosis. Small 4.4 mm enhancing lesion in the right cerebellar hemisphere (probably extra-axial in location). Diagnostic
possibilities are (1) a small leptomeningeal metastasis, (2) a small vascular malformation, (3) mild inflammatory or infectious disease or (4) less likely a subacute ischemic infarct.
03/22/25 Head/Neck CTA No acute vascular pathology. No M1 and M2 occlusion. 50-69% right proximal internal carotid artery stenosis
[2025-03-23 14:41] LABS: CSF Clarity Clear; CSF Color Colorless; CSF Tube # 1; White Cell Count/CSF 2 mm^3 (0-5)
[2025-03-23 14:42] LABS: CSF Tube # 4; Red Cell Count/CSF 1 mm^3
[2025-03-23 14:43] LABS: CSF Color Colorless; CSF Tube # Clarity Clear; Red Cell Count/CSF 0 mm^3; White Blood Cell Count/CSF 1 mm^3 (0-5)
[2025-03-23] MEDS: LIPITOR 10 MG PO (17:16)
[2025-03-23] MEDS: APRESOLINE PO (20:19)
[2025-03-24 03:06] VITALS: BP 127/56
[2025-03-24] MEDS: ZOSYN 50 IV ×3 (05:13→17:38)
[2025-03-24] MEDS: SYNTHROID 25 MCG PO (05:13)
[2025-03-24 05:46] LABS: Hemoglobin 7.6 g/dL (12.0-16.0); Mean Corpuscular Hgb 31.3 pg (27.0-31.0); Mean Corpuscular Volume 94.7 fL (81.0-99.0); Mean Platelet Volume 10.8 fL (7.4-10.4); Platelet Count 290 10^3/uL (130-400); Red Blood Cell Count 2.43 10^6/uL (4.20-5.40); Red Cell Dist. Width 18.1 % (11.5-14.5)
--- NOTE | 2025-03-24 06:07 | PTCARENOTE ---
Up on checking on the pt, tourniquet still attached to pt's right upper arm. After removing it, it was a red brayden a long the tourniquet. No discoloration noted, good radial/brachial pulse. Good capillary refill. Pt complained of mild tenderness to
the area. Checked the site again, pt states that it feels better now. Will follow.
[2025-03-24 06:11] LABS: Blood Urea Nitrogen 19 mg/dl (7-17); Calcium 8.4 mg/dl (8.4-10.2); Carbon Dioxide 27 mmol/L (22-30); Chloride 101 mmol/L (98-107); Estimated Creatinine Clearance 38 ml/min; Glucose 106 mg/dl (70-99); Potassium 3.7 mmol/L (3.5-5.1); Sodium 134 mmol/L (135-145); eGFR 55.55
--- NOTE | 2025-03-24 07:41 | W.PN.NEURO.1 ---
Today's Communication / Plan
-
Provide thiamine
Check blood work for potential metabolic causes including Willard's
Right internal carotid artery stenosis will require follow-up
Neuro Assessment/Plan
Assessment
Abrupt onset of change mental status on the backdrop of patient having had 2 different types of cancer and MRI not demonstrative of a significant lesion with a questionable area of enhancement in the right cerebellum
Differential diagnosis includes toxic metabolic encephalopathy, SREAT (Willard's thyroiditis)
Excluded acute ischemic stroke and leptomeningeal carcinomatosis
Patient with agitation during the night and subsequent lethargy
Plan
Provide thiamine
Check blood work for potential metabolic causes including Willard's
Right internal carotid artery stenosis will require follow-up
Will follow-up test results
Subjective/Objective
Subjective Data
Date of Service: March 24, 2025
Objective Data
Vital Signs
Temp Pulse Resp BP Pulse Ox
36.7 C 80 16 127/56 95
03/24/25 03:06 03/24/25 03:06 03/24/25 03:06 03/24/25 03:06 03/24/25 03:06
Lab Results
03/24/25 04:53
03/24/25 04:53
PT 14.1 Sec (11.4-14.6) 03/22/25 21:21
INR 1.06 03/22/25 21:21
APTT 38.0 Sec (23.4-35.0) H 03/22/25 06:43
Sodium 134 mmol/L (135-145) L 03/24/25 04:53
Potassium 3.7 mmol/L (3.5-5.1) 03/24/25 04:53
BUN 19 mg/dl (7-17) H 03/24/25 04:53
Glucose 106 mg/dl (70-99) H 03/24/25 04:53
Calcium 8.4 mg/dl (8.4-10.2) 03/24/25 04:53
LDL Cholesterol, Calc 49 mg/dl 03/22/25 06:44
Vitamin B12 781 pg/ml (239-931) 03/22/25 06:44
Patient Allergies
No Known Allergies Allergy (Verified 03/21/25 12:20)
Data Reviewed
-
Labs: Pending and Report Reviewed
Past History
Past History
ED Past Medical History: Cancer (breast, uterine), GERD, HTN, Hypercholesterolemia, Hypothyroidism and Other (gout, iron deficiency, mild pulm HTN)
ED Past Surgical History: Cholecystectomy and Orthopedic (Rotator cuff repair left)
Social History
Tobacco: Non-smoker
Alcohol: None
Personal:
Living: with family
Employment: Retired
Family History
Family History: Other (Noncontributory)
Medications
-
Medications:
Generic Name Dose Route Start Last Admin
Trade Name Freq PRN Reason Stop Dose Admin
Acetaminophen 650 mg 03/21/25 17:33
Acetaminophen 325 Mg Tablet PO 04/18/25 17:32
Q4HPRN PRN
PEÑA, mild pain, or temp >100.4F
Atorvastatin Calcium 10 mg 03/21/25 18:00 03/23/25 17:16
Atorvastatin (Lipitor) 10 Mg Tablet PO 04/18/25 17:59 10 mg
QPM MHANAZ Administration
Buprenorphine 1 patch 03/23/25 16:00
Buprenorphine 20 Mcg/Hr Patch *Patient Own* TRANSDERM 04/06/25 15:59
SA MAHNAZ
Cholecalciferol 25 mcg 03/22/25 08:00 03/23/25 10:11
Cholecalciferol (Vitamin D3) 25 Mcg Tablet (1,000 Units) PO 04/19/25 07:59 25 mcg
DAILY MAHNAZ Administration
Diltiazem HCl 240 mg 03/22/25 08:00 03/23/25 10:10
Diltiazem 240 Mg Extended Release (24 H) Capsule PO 04/19/25 07:59 240 mg
DAILY MAHNAZ Administration
Duloxetine HCl 30 mg 03/22/25 08:00 03/23/25 10:10
Duloxetine Delayed Release 30 Mg Capsule PO 04/19/25 07:59 30 mg
DAILY MAHNAZ Administration
Estradiol 0 applic 03/22/25 08:00 03/23/25 10:12
Estradiol 0.01% (Vaginal Cream) 42.5 Gram Tube VAG 04/19/25 07:59 1 applic
DAILY MAHNAZ Administration
Hydralazine HCl 25 mg 03/21/25 20:00 03/23/25 20:19
Hydralazine 25 Mg Tablet PO 04/18/25 19:59 Not Given
BID MAHNAZ
Piperacillin Sod/Tazobactam Sod 3.375 gram in 50 mls @ 100 mls/hr 03/22/25 18:00 03/24/25 05:13
Zosyn IV 50 mls
Q6H MAHNAZ Administration
Levothyroxine Sodium 25 mcg 03/22/25 06:00 03/24/25 05:13
Levothyroxine 25 Mcg Tablet PO 04/19/25 05:59 25 mcg
DAILY @ 0600 MAHNAZ Administration
Magnesium 84 mg 03/22/25 08:00 03/23/25 10:11
Magnesium Lactate 84 Mg Tablet PO 04/19/25 07:59 84 mg
DAILY MAHNAZ Administration
Pantoprazole Sodium 40 mg 03/22/25 08:00 03/23/25 10:11
Pantoprazole 40 Mg Delayed Release Tablet PO 04/19/25 07:59 40 mg
DAILY MAHNAZ Administration
Patch Removal 0 patch 03/23/25 16:00
Remove Pt Own Butrans Patch REMOVE 04/06/25 15:59
SA MAHNAZ
Sodium Chloride 0 flush 03/21/25 18:00 03/23/25 10:11
Sodium Chloride 0.9% (Flush) Syringe IV 04/18/25 17:59 1 flush
PER PROTOCOL MAHNAZ Administration
Thiamine HCl 100 mg 03/22/25 19:00 03/23/25 10:11
Thiamine 100 Mg Tablet PO 03/24/25 08:01 100 mg
DAILY MAHNAZ Administration
[2025-03-24 08:33] VITALS: BP 135/68
--- NOTE | 2025-03-24 09:08 | W.PN.HOSP.TC ---
Today's Communication/Plan
-
see plan
Assessment / Plan
Assessment / Plan
Gen: NAD, Awake and alert, NCAT
Eyes: EOMI, PERRLA, no scleral icterus.
Neck: supple.
CV: remains RRR, +S1/S2, no m/r/g.
Resp: CTAB anteriorly, no rales, wheezes, or rhonchi.
Abd: remains +BS, soft, NT, ND
Skin: No rashes.
Neuro: CN 2-12 intact, non-focal.
Psych: Normal mood and affect.
03/23/25 10:53 Csf CSF Culture - Preliminary
No Growth After 18-24 Hours
03/23/25 10:53 Csf Meningitis/Encephalitis Panel (PCR) - Final
03/23/25 10:53 Csf Fungal Culture - Preliminary
Culture in progress.
Positive cultures are reported as soon as detected.
Final report to follow in four to five weeks.
03/21/25 12:30 Urine Urine Culture - Final
Pseudomonas aeruginosa
CT Brain: No acute intracranial abnormality identified.
Echo: EF 65-70%. No RWMA. Normal RV sz/fxn. Massively dilated left atrium. Moderately dilated right atrium. Moderate mitral stenosis; mean gradient 7 mmHg. Mild to moderate mitral regurgitation. Mild TR. Estimated pulmonary artery pressure of
40-45mmHg. No prior study available for comparison.
MRI brain:
1. Moderate bilateral frontal and parietal lobe volume loss.
2. Minimal periventricular white matter leukoaraiosis.
3. Small 4.4 mm enhancing lesion in the right cerebellar hemisphere (probably extra-axial in location). Diagnostic possibilities are (1) a small leptomeningeal metastasis, (2) a small vascular malformation, (3) mild inflammatory or infectious
disease or (4) less likely a subacute ischemic infarct.
4. Severe right-sided facet joint arthrosis at C4/C5.
CTA head/neck: No acute intracranial pathology. No acute vascular pathology. No M1 and M2 occlusion. 50-69% right proximal internal carotid artery stenosis. Multilevel degenerative disc disease.
Acute metabolic encephalopathy:
-imaging above
-likely due to acute UTI in the setting of underlying dementia exacerbated by hospital-acquired delirium
-chronic grossman, was changed in ER after having become dislodged on 03/20/25
-afebrile, no leukocytosis
-LP done 03/23/25. Meningitis PCR negative, protein 93, glucose normal, CSF Cx NGTD. CSF paraneoplastic panel/VDRL/Lyme pending.
-cont Zosyn as per ID
Elevated trop:
-denies CP
-ECG (read by me): Sinus tachy @ 104, L-axis, RBBB, LAFB, no acute ST changes, TWi V1
-suspect non-ischemic myocardial injury
-echo above
-Troponin trending down
-Etiology of elevated troponin is not entirely clear but could be due to acute infection as per discussion with cardiology
-cardiology has signed off
Other problems:
KEON has been ruled out
Essential HTN: cont Hydralazine/Cardizem CD
CAD: cont statin/ASA/Plavix
HLD: cont statin
Hypothyroidism: cont Levoxyl
GERD: Cont PPI
Iron deficiency anemia, chronic: Hb downtrending. As per discussion with pt's son she has required pRBCs prior. Transfuse for Hb < 7.
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
reports bladder pressing on bladder or in bladder this is why has chronic Grossman
Gout
Mild pulmonary hypertension
Pt's son updated extensively over the phone 03/23/25.
FULL/SCDs (Hb 7.6, downtrending, will avoid pharmacological DVT prophylaxis at this time)
Anticipated Discharge: 24 - 48 hours
Subjective/Interval History
-
Date of Service: March 24, 2025
c/o R lat-post rib pain. Denies any other acute complaints.
Objective Data
-
Labs:
Laboratory Results
03/24/25
04:53
WBC 6.0
Hgb 7.6 L
Hct 23.0 L
Plt Count 290
Sodium 134 L
Potassium 3.7
Chloride 101
Carbon Dioxide 27
BUN 19 H
Creatinine 1.0
Glucose 106 H
Calcium 8.4
Vital Signs:
Vital Signs
Temp Pulse Resp BP Pulse Ox
97.7 F 68 18 135/68 97
03/24/25 08:33 03/24/25 08:33 03/24/25 08:33 03/24/25 08:33 03/24/25 08:33
I&O
03/23/25 03/24/25 03/25/25
06:59 06:59 06:59
Intake Total 1939
Output Total 650 / 650 550 / 550
Balance 1290 / 1290 -550 / -550
[2025-03-24] MEDS: APRESOLINE 25 MG PO ×2 (10:09→20:44)
[2025-03-24] MEDS: VITAMIN B1 100 MG PO (10:10)
[2025-03-24] MEDS: CARDIZEM CD 240 MG PO (10:10)
[2025-03-24] MEDS: MAG-TAB SR 84 MG PO (10:10)
[2025-03-24] MEDS: ESTRACE 0.01% VAGINAL CREAM 1 APPLIC VAG (10:10)
[2025-03-24] MEDS: CYMBALTA DELAYED RELEASE 30 MG PO (10:10)
[2025-03-24] MEDS: VITAMIN D3 (cholecalciferol) 25 MCG PO (10:10)
[2025-03-24] MEDS: PROTONIX 40 MG PO (10:10)
[2025-03-24] MEDS: FLUSH (NSS) 1 FLUSH IV (10:10)
[2025-03-24] MEDS: TYLENOL 650 MG PO (10:18)
--- NOTE | 2025-03-24 11:00 | W.PN.ID1 ---
Date of Service
Date of Service: March 24, 2025
Today's Communication
Continue current antibiotics.
Assessment / Plan
# Pseudomonas CA-UTI, present on admission
- Recent grossman malfunction, exchanged in ED 03/20
- continue Zosyn
# Acute change in mental status/TME
- appears improved
# stage IV uterine cancer on chemo at [facility]
- Brain MRI with 4.4 mm enhancing lesion right cerebellum
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
Hypertension
Hypothyroidism
CAD
Stage 4 uterine cancer status post hysterectomy on chemo, radiation [facility]
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
Gout
History of right breast lumpectomy -atypical lobular hyperplasia 2022
Cholecystectomy
R shoulder replacement
Chief Complaint
-: UTI
Subjective / Review of Systems
Review of Systems: No Fever, No Chills and No Abdominal Pain
Vital Signs / Physical Exam
Vital Signs
Vital Signs
Temp Pulse Resp BP Pulse Ox
97.7 F 68 18 135/68 97
03/24/25 08:33 03/24/25 10:09 03/24/25 08:33 03/24/25 10:09 03/24/25 09:00
Physical Exam
Constitutional: Comfortable, Chronically Ill and Non-toxic
Eyes: Sclera Anicteric
Cardiovascular: S1/S2; Negative S3/S4
Pulmonary: Non Labored
Genito-Urinary: Grossman and Clear Urine; Negative Turbid Urine or Hematuria
Neurological: Awake and Alert
Psychological: Calm
Objective Data
Lab Data
Lab Results
03/24/25 04:53
03/24/25 04:53
ESR Cancelled 03/21/25 17:33
PT 14.1 Sec (11.4-14.6) 03/22/25 21:21
INR 1.06 03/22/25 21:21
APTT 38.0 Sec (23.4-35.0) H 03/22/25 06:43
Estimated Creat Clear 38 ml/min 03/24/25 04:53
Total Bilirubin 0.5 mg/dl (0.2-1.3) 03/21/25 12:30
AST 20 U/L (14-36) 03/21/25 12:30
ALT 12 U/L (0-35) 03/21/25 12:30
Alkaline Phosphatase 80 U/L (38-126) 03/21/25 12:30
C-Reactive Protein 20.90 mg/L (0.0-10.00) H 03/22/25 21:21
Most recent labs reviewed.
Micro Results:
03/23/25 10:53 CSF Culture - Preliminary
Csf No Growth After 18-24 Hours
Gram Stain - Preliminary
03/23/25 10:53 Meningitis/Encephalitis Panel (PCR) - Final
Csf
03/23/25 10:53 Fungal Culture - Preliminary
Csf Culture in progress.
Positive cultures are reported as soon as detected.
Final report to follow in four to five weeks.
03/23/25 10:53 Acid Fast Bacilli Smear - Pending
Csf Acid Fast Bacilli Culture - Pending
03/21/25 12:30 Urine Culture - Final
Urine Pseudomonas aeruginosa
03/22/25 Brain MRI: Moderate bilateral frontal and parietal lobe volume loss. Minimal periventricular white matter leukoaraiosis. Small 4.4 mm enhancing lesion in the right cerebellar hemisphere (probably extra-axial in location). Diagnostic
possibilities are (1) a small leptomeningeal metastasis, (2) a small vascular malformation, (3) mild inflammatory or infectious disease or (4) less likely a subacute ischemic infarct.
03/22/25 Head/Neck CTA No acute vascular pathology. No M1 and M2 occlusion. 50-69% right proximal internal carotid artery stenosis
[2025-03-24 11:28] VITALS: BP 128/55
[2025-03-24 11:59] LABS: Thyroid Peroxidase Ab (TPO) 0.5 IU/mL (0.0-9.0)
[2025-03-24] MEDS: FLUSH (NSS) 2 FLUSH IV (12:45)
[2025-03-24] MEDS: BUTRANS 20 MCG/HR 1 PATCH TRANSDERM (14:30)
[2025-03-24] MEDS: REMOVE PT OWN BUTRANS PATCH 1 PATCH REMOVE (14:37)
[2025-03-24 15:33] VITALS: BP 117/50
--- NOTE | 2025-03-24 17:00 | PTCARENOTE ---
Noted that pt had a burst of tachycardia 140s on telemetry for a few seconds and then SR in the 70s. Pt just laying in the bed, asymptomatic. Kept pt on telemetry as she came up to remove telemetry per protocol today.
[2025-03-24] MEDS: LIPITOR 10 MG PO (17:38)
[2025-03-24 19:07] LABS: Myeloperoxidase Antibody 0 AU/mL (0-19); Serine Protease-3, IgG 2 AU/mL (0-19)
[2025-03-24 19:31] VITALS: BP 139/58
[2025-03-24 23:02] VITALS: BP 140/57
[2025-03-25] VITALS (8 sets, daily range): BP systolic 124–154; BP diastolic 52–64; PULSE 74–78; O2SAT 98–99
[2025-03-25] MEDS: ZOSYN 50 IV ×5 (00:37→23:00)
[2025-03-25] MEDS: SYNTHROID 25 MCG PO (05:45)
[2025-03-25] MEDS: VITAMIN D3 (cholecalciferol) 25 MCG PO (08:13)
[2025-03-25] MEDS: CARDIZEM CD 240 MG PO (08:13)
[2025-03-25] MEDS: CYMBALTA DELAYED RELEASE 30 MG PO (08:13)
[2025-03-25] MEDS: MAG-TAB SR 84 MG PO (08:13)
[2025-03-25] MEDS: APRESOLINE 25 MG PO ×2 (08:13→21:14)
[2025-03-25] MEDS: PROTONIX 40 MG PO (08:13)
[2025-03-25] MEDS: ESTRACE 0.01% VAGINAL CREAM 1 APPLIC VAG (08:14)
--- NOTE | 2025-03-25 10:48 | W.PN.HOSP.TC ---
Today's Communication/Plan
-
see bold
Assessment / Plan
Assessment / Plan
03/23/25 10:53 Csf CSF Culture - Preliminary
No Growth After 18-24 Hours
03/23/25 10:53 Csf Meningitis/Encephalitis Panel (PCR) - Final
03/23/25 10:53 Csf Fungal Culture - Preliminary
Culture in progress.
Positive cultures are reported as soon as detected.
Final report to follow in four to five weeks.
03/21/25 12:30 Urine Urine Culture - Final
Pseudomonas aeruginosa
CT Brain: No acute intracranial abnormality identified.
Echo: EF 65-70%. No RWMA. Normal RV sz/fxn. Massively dilated left atrium. Moderately dilated right atrium. Moderate mitral stenosis; mean gradient 7 mmHg. Mild to moderate mitral regurgitation. Mild TR. Estimated pulmonary artery pressure of
40-45mmHg. No prior study available for comparison.
MRI brain:
1. Moderate bilateral frontal and parietal lobe volume loss.
2. Minimal periventricular white matter leukoaraiosis.
3. Small 4.4 mm enhancing lesion in the right cerebellar hemisphere (probably extra-axial in location). Diagnostic possibilities are (1) a small leptomeningeal metastasis, (2) a small vascular malformation, (3) mild inflammatory or infectious
disease or (4) less likely a subacute ischemic infarct.
4. Severe right-sided facet joint arthrosis at C4/C5.
CTA head/neck: No acute intracranial pathology. No acute vascular pathology. No M1 and M2 occlusion. 50-69% right proximal internal carotid artery stenosis. Multilevel degenerative disc disease.
Acute metabolic encephalopathy:
Catheter associated urinary tract infection:
-Likely due to acute urinary tract infection in the setting of underlying dementia exacerbated by hospital-acquired delirium
-Patient has chronic Mccabe that was changed in the ER after being dislodged on 03/20/2025
-LP done 03/23/25. Meningitis PCR negative, protein 93, glucose normal, CSF Cx NGTD
-Urine cultures growing Pseudomonas
-Appreciate ID input, continue Zosyn, can be changed to Cipro upon discharge
Elevated trop:
-Denies chest pain
-Seen by cardiology, cardiology suspect nonischemic myocardial injury in the setting of infection
Other problems:
KEON has been ruled out
Essential HTN: cont Hydralazine/Cardizem CD
CAD: cont statin/ASA/Plavix
HLD: cont statin
Hypothyroidism: cont Levoxyl
GERD: Cont PPI
Iron deficiency anemia, chronic: Hb downtrending. As per discussion with pt's son she has required pRBCs prior. Transfuse for Hb < 7.
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
reports bladder pressing on bladder or in bladder this is why has chronic Mccabe
Gout
Mild pulmonary hypertension
DVT prophylaxis�SCDs secondary to downtrending hemoglobin
Full code
Pt's son was updated by Dr. Gotti extensively over the phone 03/23/25.
Updated at bedside 03/25
Total time spent to see the patient on the floor, examine the patient, review data and lab results, discuss treatment plan with patient, nursing staff around 40 minutes.
Physical Exam
General: No acute distress
HEENT: Normocephalic, Atraumatic, EOMI, MMM
Respiratory: Clear to Auscultation bilaterally
Cardiac: Normal S1/S2, Regular Rate and Rhythm
GI: Soft, Nontender, Nondistended, Normal Bowel Sounds
Extremities: No Clubbing, Cyanosis, or Edema
Neuro: Nonfocal/Grossly Intact
Psych: Calm, Cooperative
Derm: No Visible lesions
Anticipated Discharge: Within 24 hours
Subjective/Interval History
-
Date of Service: March 25, 2025
Patient denies chest pain, shortness of breath, palpitations. No fever, no vomiting.
Objective Data
-
Vital Signs:
Vital Signs
Temp Pulse Resp BP Pulse Ox
97.8 F 81 16 136/64 97
03/25/25 08:05 03/25/25 08:13 03/25/25 08:05 03/25/25 08:13 03/25/25 09:40
I&O
03/24/25 03/25/25 03/26/25
06:59 06:59 06:59
Intake Total 820 / 820
Output Total 550 / 550 975 / 975
Balance -550 / -550 -155 / -155
[2025-03-25 11:35] LABS: ANA, IgG Reflex to HEp-2 None Detected (None Detected)
--- NOTE | 2025-03-25 12:19 | W.PN.ID1 ---
Date of Service
Date of Service: March 25, 2025
Today's Communication
Continue Zosyn
Assessment / Plan
# Pseudomonas CA-UTI, present on admission
- Recent grossman malfunction, exchanged in ED 03/20
- continue Zosyn
- At time of dc, transition to cipro.
# Acute change in mental status/TME - improving
# stage IV uterine cancer on chemo at [facility]
- Brain MRI with 4.4 mm enhancing lesion right cerebellum
- LP CSF: no infection.
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
Hypertension
Hypothyroidism
CAD
Stage 4 uterine cancer status post hysterectomy on chemo, radiation [facility]
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
Gout
History of right breast lumpectomy -atypical lobular hyperplasia 2022
Cholecystectomy
R shoulder replacement
Chief Complaint
-: UTI
Subjective / Review of Systems
Mental status better.
Vital Signs / Physical Exam
Vital Signs
Vital Signs
Temp Pulse Resp BP Pulse Ox
97.9 F 78 18 129/54 100
03/25/25 11:53 03/25/25 11:53 03/25/25 11:53 03/25/25 11:53 03/25/25 11:53
Physical Exam
Constitutional: No Acute Distress and Comfortable
Eyes: No Conjunctival Hemorrhage and Sclera Anicteric
Cardiovascular: Regular Rate and S1/S2
Pulmonary: Clear
Gastrointestinal: Soft, Non Tender and Non Distended
Genito-Urinary: Grossman and Clear Urine
Neurological: Awake, Alert and AO x 3
Objective Data
Lab Data
Lab Results
03/24/25 04:53
03/24/25 04:53
ESR Cancelled 03/21/25 17:33
PT 14.1 Sec (11.4-14.6) 03/22/25 21:21
INR 1.06 03/22/25 21:21
APTT 38.0 Sec (23.4-35.0) H 03/22/25 06:43
Estimated Creat Clear 38 ml/min 03/24/25 04:53
Total Bilirubin 0.5 mg/dl (0.2-1.3) 03/21/25 12:30
AST 20 U/L (14-36) 03/21/25 12:30
ALT 12 U/L (0-35) 03/21/25 12:30
Alkaline Phosphatase 80 U/L (38-126) 03/21/25 12:30
C-Reactive Protein 20.90 mg/L (0.0-10.00) H 03/22/25 21:21
Most recent labs reviewed.
Micro Results:
03/23/25 10:53 CSF Culture - Preliminary
Csf No Growth After 48 Hours
Gram Stain - Preliminary
03/23/25 10:53 Meningitis/Encephalitis Panel (PCR) - Final
Csf
03/23/25 10:53 Fungal Culture - Preliminary
Csf Culture in progress.
Positive cultures are reported as soon as detected.
Final report to follow in four to five weeks.
03/23/25 10:53 Acid Fast Bacilli Smear - Pending
Csf Acid Fast Bacilli Culture - Pending
03/21/25 12:30 Urine Culture - Final
Urine Pseudomonas aeruginosa
03/22/25 Brain MRI: Moderate bilateral frontal and parietal lobe volume loss. Minimal periventricular white matter leukoaraiosis. Small 4.4 mm enhancing lesion in the right cerebellar hemisphere (probably extra-axial in location). Diagnostic
possibilities are (1) a small leptomeningeal metastasis, (2) a small vascular malformation, (3) mild inflammatory or infectious disease or (4) less likely a subacute ischemic infarct.
03/22/25 Head/Neck CTA No acute vascular pathology. No M1 and M2 occlusion. 50-69% right proximal internal carotid artery stenosis
[2025-03-25] MEDS: LIPITOR 10 MG PO (17:17)
--- NOTE | 2025-03-25 17:54 | CM ---
Spoke with PT/OT, indication is for SNF. Spoke with patient and her spouse who was at bedside. Patient agreeable to SNF and stated that she would like for referrals to be sent to: [facility].
Will make referrals.
Plan: Case management will continue to follow and assist with discharge planning. SNF upon insurance approval and finding bed availability.
[2025-03-26 03:43] VITALS: BP 145/60
[2025-03-26] MEDS: SYNTHROID 25 MCG PO (04:59)
[2025-03-26] MEDS: ZOSYN 50 IV ×4 (04:59→23:16)
[2025-03-26 07:05] VITALS: BP 169/60
[2025-03-26 07:20] LABS: Hematocrit 24.7 % (37.0-47.0); Hemoglobin 8.3 g/dL (12.0-16.0); Mean Corp Hgb Conc. 33.6 g/dL (33.0-37.0); Mean Corpuscular Hgb 31.2 pg (27.0-31.0); Mean Corpuscular Volume 92.9 fL (81.0-99.0); Mean Platelet Volume 10.6 fL (7.4-10.4); Platelet Count 304 10^3/uL (130-400); Red Blood Cell Count 2.66 10^6/uL (4.20-5.40); Red Cell Dist. Width 18.3 % (11.5-14.5); White Blood Cell Count 6.5 10^3/uL (4.8-10.8)
--- NOTE | 2025-03-26 09:08 | W.PN.HOSP.TC ---
Today's Communication/Plan
-
Discharge to short-term rehab when bed available
Assessment / Plan
Assessment / Plan
03/23/25 10:53 Csf CSF Culture - Preliminary
No Growth After 18-24 Hours
03/23/25 10:53 Csf Meningitis/Encephalitis Panel (PCR) - Final
03/23/25 10:53 Csf Fungal Culture - Preliminary
Culture in progress.
Positive cultures are reported as soon as detected.
Final report to follow in four to five weeks.
03/21/25 12:30 Urine Urine Culture - Final
Pseudomonas aeruginosa
CT Brain: No acute intracranial abnormality identified.
Echo: EF 65-70%. No RWMA. Normal RV sz/fxn. Massively dilated left atrium. Moderately dilated right atrium. Moderate mitral stenosis; mean gradient 7 mmHg. Mild to moderate mitral regurgitation. Mild TR. Estimated pulmonary artery pressure of
40-45mmHg. No prior study available for comparison.
MRI brain:
1. Moderate bilateral frontal and parietal lobe volume loss.
2. Minimal periventricular white matter leukoaraiosis.
3. Small 4.4 mm enhancing lesion in the right cerebellar hemisphere (probably extra-axial in location). Diagnostic possibilities are (1) a small leptomeningeal metastasis, (2) a small vascular malformation, (3) mild inflammatory or infectious
disease or (4) less likely a subacute ischemic infarct.
4. Severe right-sided facet joint arthrosis at C4/C5.
CTA head/neck: No acute intracranial pathology. No acute vascular pathology. No M1 and M2 occlusion. 50-69% right proximal internal carotid artery stenosis. Multilevel degenerative disc disease.
Acute metabolic encephalopathy:
Catheter associated urinary tract infection:
-Likely due to acute urinary tract infection in the setting of underlying dementia exacerbated by hospital-acquired delirium
-Patient has chronic Mccabe that was changed in the ER after being dislodged on 03/20/2025
-LP done 03/23/25. Meningitis PCR negative, protein 93, glucose normal, CSF Cx NGTD
-Urine cultures growing Pseudomonas
-Appreciate ID input, continue Zosyn D5/7, upon discharge can be changed to Cipro 500mg po bid through 03/28.
Elevated trop:
-Denies chest pain
-Seen by cardiology, cardiology suspect nonischemic myocardial injury in the setting of infection
Other problems:
KEON has been ruled out
Essential HTN: cont Hydralazine/Cardizem CD
CAD: cont statin/ASA/Plavix
HLD: cont statin
Hypothyroidism: cont Levoxyl
GERD: Cont PPI
Iron deficiency anemia, chronic: Hb downtrending. As per discussion with pt's son she has required pRBCs prior. Transfuse for Hb < 7.
h/o breast cancer and uterine cancer: follows at 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
reports bladder pressing on bladder or in bladder this is why has chronic Mccabe
Gout
Mild pulmonary hypertension
DVT prophylaxis�SCDs secondary to downtrending hemoglobin
Full code
Pt's son was updated by Dr. Gotti extensively over the phone 03/23/25.
Updated at bedside 03/25
Total time spent to see the patient on the floor, examine the patient, review data and lab results, discuss treatment plan with patient, nursing staff around 38 minutes.
Physical Exam
General: No acute distress
HEENT: Normocephalic, Atraumatic, EOMI, MMM
Respiratory: Clear to Auscultation bilaterally
Cardiac: Normal S1/S2, Regular Rate and Rhythm
GI: Soft, Nontender, Nondistended, Normal Bowel Sounds
Extremities: No Clubbing, Cyanosis, or Edema
Neuro: Nonfocal/Grossly Intact
Psych: Calm, Cooperative
Derm: No Visible lesions
Anticipated Discharge: Within 24 hours
Subjective/Interval History
-
Date of Service: March 26, 2025
Patient reports feeling well. Mentation continues to improve. Denies chest pain, denies shortness of breath. No fever, no vomiting.
Objective Data
-
Labs:
Laboratory Results
03/26/25
06:46
WBC 6.5
Hgb 8.3 L
Hct 24.7 L
Plt Count 304
Vital Signs:
Vital Signs
Temp Pulse Resp BP Pulse Ox
97.6 F 82 16 169/60 97
03/26/25 07:05 03/26/25 07:05 03/26/25 07:05 03/26/25 07:05 03/26/25 07:05
I&O
03/25/25 03/26/25 03/27/25
06:59 06:59 06:59
Intake Total 820 / 820 920 / 920
Output Total 975 / 975 975 / 975
Balance -155 / -155 -55 / -55
[2025-03-26 09:21] LABS: CSF VDRL (T. pallidum) Non Reactive (Non Reactive)
[2025-03-26] MEDS: CYMBALTA DELAYED RELEASE 30 MG PO (09:36)
[2025-03-26] MEDS: MAG-TAB SR 84 MG PO (09:36)
[2025-03-26] MEDS: CARDIZEM CD 240 MG PO (09:36)
[2025-03-26] MEDS: PROTONIX 40 MG PO (09:36)
[2025-03-26] MEDS: APRESOLINE 25 MG PO ×2 (09:36→20:54)
[2025-03-26] MEDS: VITAMIN D3 (cholecalciferol) 25 MCG PO (09:37)
[2025-03-26] MEDS: ESTRACE 0.01% VAGINAL CREAM 1 APPLIC VAG (09:37)
[2025-03-26 11:10] VITALS: BP 157/64
--- NOTE | 2025-03-26 11:12 | W.PN.ID1 ---
Date of Service
Date of Service: March 26, 2025
Today's Communication
- Continue Zosyn (d5 of 7)
- At time of dc, transition to cipro 500mg po bid through 03/28.
Assessment / Plan
# Pseudomonas CA-UTI, present on admission
- Recent grossman malfunction, exchanged in ED 03/20
- Continue Zosyn (d5 of 7)
- At time of dc, transition to cipro 500mg po bid through 03/28.
# Acute change in mental status/TME - resolved
# stage IV uterine cancer on chemo at [facility]
- Brain MRI with 4.4 mm enhancing lesion right cerebellum
- LP CSF: no infection.
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
Hypertension
Hypothyroidism
CAD
Stage 4 uterine cancer status post hysterectomy on chemo, radiation [facility]
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
Gout
History of right breast lumpectomy -atypical lobular hyperplasia 2022
Cholecystectomy
R shoulder replacement
Chief Complaint
-: UTI
Subjective / Review of Systems
Continues to feel improved.
Vital Signs / Physical Exam
Vital Signs
Vital Signs
Temp Pulse Resp BP Pulse Ox
97.6 F 82 16 169/60 97
03/26/25 07:05 03/26/25 09:36 03/26/25 07:05 03/26/25 07:05 03/26/25 07:05
Physical Exam
Constitutional: Comfortable
Cardiovascular: Regular Rate and S1/S2
Pulmonary: Clear
Gastrointestinal: Soft, Non Tender, Non Distended and Normal Bowel Sounds
Genito-Urinary: Grossman and Clear Urine
Neurological: Awake and AO x 3
Objective Data
Lab Data
Lab Results
03/26/25 06:46
03/24/25 04:53
ESR Cancelled 03/21/25 17:33
PT 14.1 Sec (11.4-14.6) 03/22/25 21:21
INR 1.06 03/22/25 21:21
APTT 38.0 Sec (23.4-35.0) H 03/22/25 06:43
Estimated Creat Clear 38 ml/min 03/24/25 04:53
Total Bilirubin 0.5 mg/dl (0.2-1.3) 03/21/25 12:30
AST 20 U/L (14-36) 03/21/25 12:30
ALT 12 U/L (0-35) 03/21/25 12:30
Alkaline Phosphatase 80 U/L (38-126) 03/21/25 12:30
C-Reactive Protein 20.90 mg/L (0.0-10.00) H 03/22/25 21:21
Most recent labs reviewed.
Micro Results:
03/23/25 10:53 Fungal Culture - Preliminary
Csf Culture in progress.
Positive cultures are reported as soon as detected.
Final report to follow in four to five weeks.
03/23/25 10:53 CSF Culture - Preliminary
Csf No Growth After 48 Hours
Gram Stain - Preliminary
03/23/25 10:53 Meningitis/Encephalitis Panel (PCR) - Final
Csf
03/23/25 10:53 Acid Fast Bacilli Smear - Pending
Csf Acid Fast Bacilli Culture - Pending
03/21/25 12:30 Urine Culture - Final
Urine Pseudomonas aeruginosa
03/22/25 Brain MRI: Moderate bilateral frontal and parietal lobe volume loss. Minimal periventricular white matter leukoaraiosis. Small 4.4 mm enhancing lesion in the right cerebellar hemisphere (probably extra-axial in location). Diagnostic
possibilities are (1) a small leptomeningeal metastasis, (2) a small vascular malformation, (3) mild inflammatory or infectious disease or (4) less likely a subacute ischemic infarct.
03/22/25 Head/Neck CTA No acute vascular pathology. No M1 and M2 occlusion. 50-69% right proximal internal carotid artery stenosis
[2025-03-26 12:06] VITALS: BP 157/64
[2025-03-26 15:05] VITALS: BP 145/61
[2025-03-26] MEDS: LIPITOR 10 MG PO (17:22)
[2025-03-26 23:13] VITALS: BP 153/54
--- NOTE | 2025-03-27 05:02 | DOWNTIME ---
Addendum entered by Saira Judd RN 03/27/25 14:20:
Correction: Downtime was 03/27/2025 from 0100 to 03/27/2025 at 0415
Original Note:
There was a [employer]eroll Tender Downtime on 03/26/2025 from 0100 to 03/27/2025 at 0415. Downtime documentation of patient's care, including medication administrations, has been reconciled in the electronic record per guidelines. Refer to the
patient's paper chart under the miscellaneous tab to see printed paper medication records and downtime forms.
[2025-03-27] MEDS: SYNTHROID 25 MCG PO (05:13)
[2025-03-27] MEDS: ZOSYN 50 IV ×2 (05:13→13:06)
[2025-03-27 07:27] LABS: Hematocrit 25.4 % (37.0-47.0); Hemoglobin 8.4 g/dL (12.0-16.0); Mean Corp Hgb Conc. 33.1 g/dL (33.0-37.0); Mean Corpuscular Hgb 31.5 pg (27.0-31.0); Mean Corpuscular Volume 95.1 fL (81.0-99.0); Mean Platelet Volume 10.6 fL (7.4-10.4); Platelet Count 302 10^3/uL (130-400); Red Blood Cell Count 2.67 10^6/uL (4.20-5.40); Red Cell Dist. Width 18.6 % (11.5-14.5); White Blood Cell Count 7.3 10^3/uL (4.8-10.8)
[2025-03-27 07:32] VITALS: BP 177/57
[2025-03-27 08:13] LABS: Paraneoplastic Ab IgG, CSF None Detected (None Detected)
[2025-03-27] MEDS: PROTONIX 40 MG PO (08:44)
[2025-03-27] MEDS: CYMBALTA DELAYED RELEASE 30 MG PO (08:44)
[2025-03-27] MEDS: MAG-TAB SR 84 MG PO (08:44)
[2025-03-27] MEDS: APRESOLINE 25 MG PO (08:44)
[2025-03-27] MEDS: CARDIZEM CD 240 MG PO (08:44)
[2025-03-27] MEDS: VITAMIN D3 (cholecalciferol) 25 MCG PO (08:45)
[2025-03-27] MEDS: ESTRACE 0.01% VAGINAL CREAM 1 APPLIC VAG (08:46)
--- NOTE | 2025-03-27 09:03 | PN.CDI ---
CDI
- -
CDI:
Physician Documentation Request
Admit Date: 03/23/25 13:24
Dear Doctor Do,
Patient admitted for change in mental status.
03/25 Infectious Disease PN: 'Pseudomonas CA-UTI, present on admission...Acute change in mental status/TME - improving'
03/26 Hospitalist PN:Acute metabolic encephalopathy: Catheter associated urinary tract infection: -Likely due to acute urinary tract infection in the setting of underlying dementia exacerbated by hospital-acquired delirium
Please specify the known or suspected type of the documented encephalopathy.
Toxic metabolic
Metabolic
Other
Use of terms such as suspected, likely, concern for, or probable (associated with a specific diagnosis that is being evaluated, monitored, or treated as if it exists) are acceptable and can be coded in the inpatient setting, when documented at the
time of discharge.
Thank you,
Shannon Askew RN, BSN
CDI Specialist
Available via [place] text
Please use your independent medical judgment in providing your response.
--- NOTE | 2025-03-27 09:52 | CM ---
Addendum entered by MEIR Randolph 03/27/25 13:31:
Spoke with patient's son who is agreeable to d/c plan. He is still out of town. Patient will need transportation. Medical necessity completed. Transfer sheet completed and provided to [facility]. RN updated.
Addendum entered by Susy Mancilla [facility] 03/27/25 12:58:
Called [facility] and spoke with a medical detail representative named, Kecia, who reviewed clinical and provided auth [id number] 6 days skilled, NRD 04/01 Next review # to call,
This information was relayed to Radha in admissions at [facility]. She stated that 16:00 transport would be best. # For report [phone] fax# [phone]
Spoke with patient who is agreeable to transfer to [facility]. She requested that her son be updated. Will call son.
Attending updated.
IMM reviewed. Patient did not want to sign. It is documented as reviewed and on chart.
Patient stated that her son may be able to provide transportation and will advise CM if he is unable.
Addendum entered by MARTHA RandolphW 03/27/25 11:56:
Received call back from Radha in admissions at [facility], who confirmed bed availability for patient today. Facility [facility] [address]. Berger [phone]
Will call to request authorization.
Original Note:
Spoke with Mackenzie in admissions at [facility] who stated that she has no female beds available this week. Spoke with Radha in admissions at [facility], who stated that she is reviewing her bed availability for today and will return call with
determination regarding availability soon. Placed a call to Tangela in admissions at [place] and [facility] as they are close to patient's residence and the hospital. [facility] and [facility] have availability for today. If no bed is
available at [facility], will discuss the options of [facility] and [facility] with patient and her spouse as they are also close options.
Patient will need auth
[facility] [address]. Mistry [id number]
[facility] Dr. Patel [id number]
Plan: Case management will continue to follow and assist with discharge planning. Patient needs SNF, awaiting a bed to be available at requested facilities.
--- NOTE | 2025-03-27 09:58 | W.PN.HOSP.TC ---
Today's Communication/Plan
-
Discharged to short-term rehab on ciprofloxacin
Assessment / Plan
Assessment / Plan
03/23/25 10:53 Csf CSF Culture - Preliminary
No Growth After 18-24 Hours
03/23/25 10:53 Csf Meningitis/Encephalitis Panel (PCR) - Final
03/23/25 10:53 Csf Fungal Culture - Preliminary
Culture in progress.
Positive cultures are reported as soon as detected.
Final report to follow in four to five weeks.
03/21/25 12:30 Urine Urine Culture - Final
Pseudomonas aeruginosa
CT Brain: No acute intracranial abnormality identified.
Echo: EF 65-70%. No RWMA. Normal RV sz/fxn. Massively dilated left atrium. Moderately dilated right atrium. Moderate mitral stenosis; mean gradient 7 mmHg. Mild to moderate mitral regurgitation. Mild TR. Estimated pulmonary artery pressure of
40-45mmHg. No prior study available for comparison.
MRI brain:
1. Moderate bilateral frontal and parietal lobe volume loss.
2. Minimal periventricular white matter leukoaraiosis.
3. Small 4.4 mm enhancing lesion in the right cerebellar hemisphere (probably extra-axial in location). Diagnostic possibilities are (1) a small leptomeningeal metastasis, (2) a small vascular malformation, (3) mild inflammatory or infectious
disease or (4) less likely a subacute ischemic infarct.
4. Severe right-sided facet joint arthrosis at C4/C5.
CTA head/neck: No acute intracranial pathology. No acute vascular pathology. No M1 and M2 occlusion. 50-69% right proximal internal carotid artery stenosis. Multilevel degenerative disc disease.
Acute toxic metabolic encephalopathy:
Catheter associated urinary tract infection:
-Likely due to acute urinary tract infection in the setting of underlying dementia exacerbated by hospital-acquired delirium
-Patient has chronic Mccabe that was changed in the ER after being dislodged on 03/20/2025
-LP done 03/23/25. Meningitis PCR negative, protein 93, glucose normal, CSF Cx NGTD
-Urine cultures growing Pseudomonas
-Appreciate ID input, currently on Zosyn day 6, can be discharged on Cipro 500mg po bid through 03/28.
Elevated trop:
-Denies chest pain
-Seen by cardiology, cardiology suspects nonischemic myocardial injury in the setting of infection
Other problems:
KEON has been ruled out
Essential HTN: cont Hydralazine/Cardizem CD
CAD: cont statin/ASA/Plavix
HLD: cont statin
Hypothyroidism: cont Levoxyl
GERD: Cont PPI
Iron deficiency anemia, chronic: Hb downtrending. As per discussion with pt's son she has required pRBCs prior. Transfuse for Hb < 7.
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
reports bladder pressing on bladder or in bladder this is why has chronic Mccabe
Gout
Mild pulmonary hypertension
DVT prophylaxis�SCDs secondary to downtrending hemoglobin
Full code
Pt's son was updated by Dr. Gotti extensively over the phone 03/23/25.
Updated at bedside 03/25
Physical Exam
General: No acute distress
HEENT: Normocephalic, Atraumatic, EOMI, MMM
Respiratory: Clear to Auscultation bilaterally
Cardiac: Normal S1/S2, Regular Rate and Rhythm
GI: Soft, Nontender, Nondistended, Normal Bowel Sounds
Extremities: No Clubbing, Cyanosis, or Edema
Neuro: Nonfocal/Grossly Intact
Psych: Calm, Cooperative
Anticipated Discharge: Today
Subjective/Interval History
-
Date of Service: March 27, 2025
Patient denies chest pain, shortness of breath, or palpitations. No fever, no vomiting.
Objective Data
-
Labs:
Laboratory Results
03/27/25
06:41
WBC 7.3
Hgb 8.4 L
Hct 25.4 L
Plt Count 302
Vital Signs:
Vital Signs
Temp Pulse Resp BP Pulse Ox
97.9 F 82 16 170/58 97
03/27/25 07:32 03/27/25 08:44 03/27/25 07:32 03/27/25 08:44 03/27/25 07:32
I&O
03/26/25 03/27/25 03/28/25
06:59 06:59 06:59
Intake Total 920 / 920 150 / 150
Output Total 975 / 975 530 / 530
Balance -55 / -55 -380 / -380
[2025-03-27 11:21] LABS: Lyme Disease DNA by PCR Not Detected; Lyme Source CSF
--- NOTE | 2025-03-27 13:46 | W.DCSUMMARY ---
Discharge Summary
Discharge Data
Date of Admission: 03/23/25
Date of Discharge: 03/27/25
-
Pending Results: No
Hospital Course
Discharge diagnoses:
Acute toxic metabolic encephalopathy
Catheter associated urinary tract infection
Chronic Mccabe
4.4 mm enhancing lesion in the right cerebellar hemisphere
Nonischemic myocardial injury in the setting of infection
Essential hypertension
Coronary artery disease
Gastroesophageal reflux disease
Iron deficiency anemia
History of breast and uterine cancer
Consults: ID, cardiology, neurology
Brain MRI:
1. Moderate bilateral frontal and parietal lobe volume loss.
2. Minimal periventricular white matter leukoaraiosis.
3. Small 4.4 mm enhancing lesion in the right cerebellar hemisphere (probably extra-axial in location). Diagnostic possibilities are (1) a small leptomeningeal metastasis, (2) a small vascular malformation, (3) mild inflammatory or infectious
disease or (4) less likely a subacute ischemic infarct.
4. Severe right-sided facet joint arthrosis at C4/C5.
Echo:
F 65-70%. No RWMA. Normal RV sz/fxn. Massively dilated left atrium. Moderately dilated right atrium. Moderate mitral stenosis; mean gradient 7 mmHg. Mild to moderate mitral regurgitation. Mild TR. Estimated pulmonary artery pressure of 40-45mmHg. No
prior study available for comparison.
Hospital course:
85-year-old female with a past medical history of breast breast cancer, uterine cancer, chronic Mccabe, iron deficiency anemia, hypertension, and hypothyroidism who presented with altered mental status. Patient was seen in conjunction with
neurology, and brain MRI was performed. She was noted to have a 4 mm enhancing lesion in the right cerebellar hemisphere, which could be due to small leptomeningeal metastases versus vascular malformation versus inflammatory/infectious disease
versus subacute infarct. LP was performed, and neurology excluded acute ischemic stroke and leptomeningeal carcinomatosis.
Patient was seen in conjunction with infectious disease. She was found to have a catheter associated urinary tract infection. Her Mccabe was exchanged in the ER. Urine cultures grew out Pseudomonas. She received Zosyn while in the hospital. ID
recommends discharge on ciprofloxacin 500 mg twice a day through 03/28/2025.
Patient had an elevated troponin. She was seen in conjunction with cardiology. Echocardiogram was performed, results as above. Cardiology suspects that she has a nonischemic myocardial injury in the setting of infection.
Patient's mentation improved dramatically. She is medically stable for discharge to short-term rehab. She needs to follow-up with her PCP 1 week after she leaves rehab. She also needs to follow-up with her cancer doctors at [facility] as well.
Disposition: Short-term rehab
Discharge planning: Required 37 minutes
Discharge Plan
-
Patient Disposition: Intermediate/SNF
Discharge Diagnosis/Procedures: Acute encephalopathy, catheter associated urinary tract infection, chronic Mccabe
Condition: Good
Diet: Low Fat and Low Cholesterol
Activity: As tolerated
Driving Restrictions: As prior to admission
Activity Restrictions/Additional Instructions:
Take Cipro 500mg po bid through 03/28.
Follow-up with your primary care provider 1 week after you leave rehab.
Referrals:
Barb Valencia MD [Family Provider, Internal Medicine] - in one week
Joselito Ashraf MD [Active, Cardiology] - in one to two weeks
Prescriptions:
New
acetaminophen 325 mg Tablet
650 mg PO Q4HPRN PRN (Reason: PEÑA, mild pain, or temp >100.4F) Qty: 0 0RF
ciprofloxacin HCl [Cipro] 500 mg tablet
500 mg PO BID 2 Days Qty: 4 0RF
Continued
simvastatin 20 MG tablet
20 mg PO QPM
cholecalciferol (vitamin D3) 1,000 UNITS tablet
1 tab PO DAILY
coQ10 (ubiquinol) 100 MG capsule
300 mg PO DAILY
krill oil 1 EACH capsule
1 cap PO DAILY
levothyroxine 25 mcg Tablet
25 mcg PO DAILY
magnesium 200 mg Tablet
400 mg PO DAILY
rfqlpfpjthdd-fhsfypfd-fdmxvg Tablet
1 tab PO DAILY
hydralazine 25 MG tablet
25 mg PO BID Qty: 0 0RF
Rx Instructions:
HOLD IF systolic blood pressure <130 while on Oxycodone.
omeprazole 40 mg Capsule,Delayed Release(Dr/Ec)
40 mg PO DAILY Qty: 0 0RF
Rx Instructions:
Take daily while on Meloxicam and full dose Aspirin to prevent GI upset.
valsartan-hydrochlorothiazide [Diovan HCT] 320-25 mg Tablet
1 tab PO DAILY Qty: 0 0RF
Rx Instructions:
HOLD IF systolic blood pressure <130 while on Oxycodone.
diltiazem HCl 240 mg Capsule,Extended Release 24 Hr
240 mg PO DAILY
duloxetine 30 mg Capsule, Delayed Rel Sprinkle
30 mg PO DAILY
estradiol [Estrace] 0.01 % (0.1 mg/gram) Cream
1 appful VAGINAL DAILY
Discontinued
Align (B.infantis) 4 mg Capsule
4 mg PO DAILY
buprenorphine 20 mcg/hour patch weekly
20 mcg transdermal WEEKLY
Discharge Orders:
Discharge Patient (As Directed); Ordered 03/27/25
Ordered By: Marcin Patel
Discharge Date and Time
Discharge Date/Time: 03/27/25 17:58
Print Language: UKRAINIAN
[2025-03-27 15:06] VITALS: BP 118/46
[2025-03-27 15:35] VITALS: BP 136/60
--- NOTE | 2025-03-27 16:07 | PTCARENOTE ---
Received patient this am AAOx3. Pt forgetful at times. Tolerated diet well. OOB to chair an tolerated well. Ambulated in hallway with assistance x1 with a rolling walker. Offered no complaints. Made patient comfortable. Cont to assess patient
status.
== END 2025-03-27 17:58 | DRG 698 ==
LOC: 4 EAST ACU 13:24
PROVIDERS: Internal Medicine; Nurse Practitioner Family; Nurse Practitioner Gerontology; Radiology Vascular & Interventional Radiology; Student in an Organized Health Care Education/Training Program; ADMITTING PHYSICIAN Hospitalist; ATTENDING PHYSICIAN Family Medicine; CONSULT PHYSICIAN Psychiatry & Neurology Neurology; CONSULT PHYSICIAN Student in an Organized Health Care Education/Training Program; EMERGENCY PHYSICIAN Student in an Organized Health Care Education/Training Program; FAMILY PHYSICIAN Internal Medicine; OTHER PHYSICIAN Internal Medicine Infectious Disease
PROC: 009Y3ZX Drainage of Lumbar Spinal Cord, Percutaneous Approach, Diagnostic (ICD-10-PCS; 2025-03-23)
PROC: BR191ZZ Fluoroscopy of Lumbar Spine using Low Osmolar Contrast (ICD-10-PCS; 2025-03-23)
DX: T83.511A Infection and inflammatory reaction due to indwelling urethral catheter, initial encounter (principal); G04.90 Encephalitis and encephalomyelitis, unspecified; G92.8 Other toxic encephalopathy; Q28.2 Arteriovenous malformation of cerebral vessels; I5A Non-ischemic myocardial injury (non-traumatic); C79.31 Secondary malignant neoplasm of brain; I45.2 Bifascicular block; I47.10 Supraventricular tachycardia, unspecified; N39.0 Urinary tract infection, site not specified; Y84.6 Urinary catheterization as the cause of abnormal reaction of the patient, or of later complication, without mention of misadventure at the time of the procedure; I25.10 Atherosclerotic heart disease of native coronary artery without angina pectoris; I10 Essential (primary) hypertension; K21.9 Gastro-esophageal reflux disease without esophagitis; D50.9 Iron deficiency anemia, unspecified; M47.819 Spondylosis without myelopathy or radiculopathy, site unspecified; E78.2 Mixed hyperlipidemia; E03.9 Hypothyroidism, unspecified; C55 Malignant neoplasm of uterus, part unspecified; Z85.3 Personal history of malignant neoplasm of breast; I27.20 Pulmonary hypertension, unspecified; Z90.49 Acquired absence of other specified parts of digestive tract; Z96.611 Presence of right artificial shoulder joint; Z90.710 Acquired absence of both cervix and uterus; Z92.3 Personal history of irradiation; Z79.890 Hormone replacement therapy; F03.90 Unspecified dementia, unspecified severity, without behavioral disturbance, psychotic disturbance, mood disturbance, and anxiety; R73.03 Prediabetes; Z79.891 Long term (current) use of opiate analgesic; Z79.899 Other long term (current) drug therapy
CPT/HCPCS: 62328; 70450; 70496; 70498; 70553; 80048; 80053; 80061; 81003; 81015; 82607; 82746; 82945; 83516; 84157; 84443; 84484; 85025; 85027; 85610; 85652; 85730; 86038; 86140; 86255; 86376; 86592; 87015; 87070; 87077; 87086; 87102; 87116; 87186; 87205; 87476; 87483; 88108; 89051; 92507; 92523; 93005; 93306; 97116; 97163; 97166; 97530; 97535; 99285; A9575; Q9967

== ENCOUNTER 2025-04-15 16:31 | Inpatient (IN) | payer OTHER, SELFPAY ==
[2025-04-15] VITALS (58 sets, daily range): BP systolic 93–153; BP diastolic 35–72; BMI 27.5
--- NOTE | 2025-04-15 13:56 | CON.NEURO ---
Addendum entered and electronically signed by Foreign Meneses MD 04/15/25 17:02:
Studies reviewed.
I have personally examined the patient. I reviewed and agree with the [employer]'s Note.
My addenda:
Awake, alert, interactive. No acute distress.
Speech receptive and expressive.
Follows 2-step requests w/o difficulty. No tremor.
Extra-ocular movements grossly intact.
Facial movements full and symmetric. Hearing intact to normal conversational volume.
Normal UE movements bilaterally.
Neck: full ROM.
Chest: no dyspnea
Heart: no JVD
Ext: (-) Clubbing, (-) Cyanosis, (-) Edema
IMPRESSIONS/RECOMMENDATIONS:
Abrupt onset of aphasia
most likely due to acute ischemic stroke
DDX seizure
Provided TNK
Check EEG
Provided Midazolam to determine if improvement from possible seizure
Total Critical Care Time=�40 minutes.
The neurological system is affected and the action required by me to prevent further deterioration or potential was control over the item listed first in the Impressions and Recommendations section of this note.
I was present and personally examined the patient.� I discussed patient care with other professional health care providers.
Will continue to follow patient.
Original Note:
Documented by User: Jyotsna Suarez NP 04/15/25 16:00
Neuro Assessment/Plan
Assessment
85-year-old female with a past medical history of hypertension, GERD, uterine cancer status post chemoradiation who presents to the [facility] on 04/15/2025 from senior care facility for evaluation of abrupt onset of aphasia.
Head CT 04/15/2025: No acute intracranial abnormality noted.
Brain CT 04/15/2025: No region of hypoperfusion or infarct.
Head and neck CTA:
Bilateral carotid bulb/ICA moderate calcified plaque. Estimated luminal diameter reduction on the right of 50%. Estimated luminal diameter reduction on the left of less than 50%. No occlusion or dissection.
Bilateral cavernous ICA calcified plaque formation. Estimated luminal diameter reduction of the right cavernous ICA of approximately 50%. Estimated luminal diameter reduction of the left cavernous ICA of 50-60%. No [place] region aneurysm
or occlusion.
No cerebral artery significant plaque, stenosis, thrombus, or occlusion.
The left vertebral artery is dominant. The right vertebral artery terminates as the posterior inferior cerebellar artery, a normal developmental variant.
Mild distention of the esophagus with fluid and air-fluid level. Recommend correlation to assess for the possibility of esophageal dysmotility or reflux.
Brain MRI 03/22/2025:
1. Moderate bilateral frontal and parietal lobe volume loss.
2. Minimal periventricular white matter leukoaraiosis.
3. Small 4.4 mm enhancing lesion in the right cerebellar hemisphere (probably extra-axial in location). Diagnostic possibilities are (1) a small leptomeningeal metastasis, (2) a small vascular malformation, (3) mild inflammatory or infectious
disease or (4) less likely a subacute ischemic infarct.
4. Severe right-sided facet joint arthrosis at C4/C5.
Labs from 03/22/2025: Cholesterol 126, LDL 49, B12 781, TSH 3.26
CSF from LP on 03/23/2025 unrevealing except protein elevated at 93
Plan
Impressions:
I. Abrupt onset of acute ischemic stroke
II. Possible seizure in the setting of hyponatremia
Recommendations:
� administer IV Tenecteplase (TNK) per protocol urgently while keeping patient's blood pressure to a goal of systolic less than 185 and diastolic less than 110 mmHg during infusion of TNK
� place the patient in medical ICU
� goal blood pressure over the next 24 hours would be less than 180/105 mmHg
� check MRI of the brain within 22-32 hours of TNK without contrast for localization of the stroke
� hold all antiplatelets, OAC meds, DOAC meds, heparinoids for next 24 hours
� LDL<70, continue Simvastatin 20 mg at bedtime when patient is able to take PO
� goal blood glucose levels for patient would be less than 180 mg/dL
� Speech, PT, OT evaluations needed
� DVT prophylaxis with sequential compression devices over next 24 hours, can be started on Enoxaparin subcutaneous for DVT prophylaxis beginning 24 hours after TNK provision.
� medical educational materials will be provided
� Neurochecks and NIHSS per unit guidelines
� obtain EEG to rule out seizure
� Follow sodium levels
Plan of care discussed with Dr. Meneses, hospitalist, nurse and patient
Consultation
Order
Date of Consultation: 04/15/25
Requesting Provider: hospitalist
Reason for Consult: abrupt onset of aphasia
Subjective/Objective
Subjective Data
Date of Service: April 15, 2025
Adapted from neurology consultation note by Dr. Meneses from March 2025: 'This is an 85-year-old left-handed female with a PMH of uterine cancer s/p hysterectomy, chemo, XRT who has presented to the hospital on 03/21/25 with report of confusion and
weakness. Patient's spouse reported that the patient had been weak for the past two days prior to arrival. She then woke up yesterday (03/21/25) morning and her speech was repetitive and nonsensical, prompting him to call EMS. CT head was obtained on
arrival and is negative for any acute abnormalities. Blood pressure was 161/80, GFR is 49, troponin is 1.210, and urinalysis is abnormal. Her grossman catheter was exchanged in the ER. This morning (03/22/25), patient reports that she feels back to
normal, although conversation is very confused. She does not some short term memory difficulty at baseline, she is unable to state when this began. She denies any headache, dizziness, speech/swallow difficulty, numbness, and weakness. She is not
taking any blood-thinning medications.
Past Medical History: Uterine cancer, atypical breast ductal hyperplasia, chronic grossman catheter, HTN, HLD, CAD, hypothyroidism, gout, GERD, gastric ulcer, glaucoma, prediabetes, iron deficiency anemia
Surgical History: Cholecystectomy, hysterectomy, L rotator cuff repair, L4-5 ILESI
Family History: Reviewed and noncontributory.
Social History: Denies tobacco, alcohol, and illicit drug use.
Allergies: No known allergies.
Home Medications: See below.
Review of Symptoms:
Patient denies any fever, headache, chest pain, shortness of breath, GI or symptoms.
�Per the HPI.�All systems are reviewed negative except above.
Physical Exam:
The patient is afebrile, abdomen is nondistended, breathing is unlabored, skin is warm and dry, no edema.
NIH Stroke Scale:
I performed the NIH stroke scale on the patient on 03/22/25 at 0830. The patient scored 2 points on the NIH stroke scale assessment, which were assigned as follows: See below.
Neurologic Examination:
The patient is awake, alert and oriented to self, month, year, not to situation or time of day, confused conversation. Next - Thanksgiving. She is able to follow commands and answer questions appropriately. There is no aphasia or dysarthria.
On cranial nerve assessment, pupils are 3 mm bilateral, round and reactive to light and accommodation. Visual khan are full. Extraocular movements are intact. Facial sensations are intact and bilaterally symmetrical, there is slight ptosis on the
left. Hearing is intact bilaterally to normal conversation volume. Tongue palate and uvula are midline. Sternocleidomastoid strengths are full bilaterally. Motor strengths are 5/5 right upper, 5-/5 left upper (unable to fully extend LUE), and 4/5
bilateral lower extremities on [employer] [place] scale. There is drift in the LUE. No involuntary movement noted. Deep tendon reflexes are absent bilateral upper and lower extremities and Babinski is absent bilaterally. There was no
extinction noted on double simultaneous stimulation. Coordination is mildly ataxic in the LUE.
Lab Results: See below.
Neuro Imaging:
1. CT Head 03/21/25: No acute intracranial abnormality identified.
IMPRESSIONS/RECOMMENDATIONS:
Abrupt onset of change mental status on the backdrop of patient having had 2 different types of cancer and MRI not demonstrative of a significant lesion with a questionable area of enhancement in the right cerebellum
Differential diagnosis includes toxic metabolic encephalopathy, SREAT (Willard's thyroiditis)
Excluded acute ischemic stroke and leptomeningeal carcinomatosis
Provide thiamine
Check blood work for potential metabolic causes including Willard's
Right internal carotid artery stenosis will require follow-up'
Presented to [facility] on 04/15/2025 from senior living around 1400 as stroke alert for abrupt onset of aphasia, last known normal was 1100. RACE scale 4. Current NIHSS 7 for global aphasia. Patient unable to provide any history given severe aphasia. Head
CT and CT perfusion did not show any evidence of stroke. did not note any weakness or numbness in the extremities, facial drooping. EMS did question some left-sided weakness in the report. No fall or trauma reported. Patient is a TNK
candidate as she is not on anticoagulation and NIHSS is above 6. She was given TNK at 1408. Given 1mg Midazolam for suspected seizure. EEG ordered. CBC and CMP reviewed: She does have hyponatremia with a sodium of 126 compared to 134 on discharge
from 03/2025�urine studies added. Her creatinine is stable at 1.1. CBC showed stable anemia.
Objective Data
Patient Allergies
No Known Allergies Allergy (Verified 03/21/25 12:20)
LDL Level: <70, continue statin
CVA Assessment
Onset of Stroke Symptoms
Onset of symptoms known: Yes
Date of onset of symptoms: 04/15/25
Time of onset of symptoms: 11:00
Time pt last seen normal is known: Yes
Date last time pt seen normal: 04/15/25
Time last time pt seen normal: 11:00
NIH Stroke Score
Level of Consciousness: 0 - Alert
LOC Questions: 2-Neither correct
LOC Commands: 2-Performs neither correctly
Best Horizontal Gaze: 0-Normal
Visual Khan: 0=Normal, no visual loss
Facial Palsy: 0=Normal, symmetrical
Motor - Right Arm: 0=No drift 10 seconds
Motor - Left Arm: 0=No drift 10 seconds
Motor - Right Le-No drift 5 seconds
Motor - Left Le-No drift 5 seconds
Limb Ataxia: 0-Absent
Sensation: 0-Normal
Best Language: 3-Mute/global aphasia
Dysarthria: 0-Normal
Extinction and Inattention: 0-No abnormality
NIH Total Score:: 7
Tenecteplase Contraindications
Inclusion and Exclusion criteria reviewed: Yes
Modified [place] Score (MRS)
-
Modified [place] Scale (mRS): Severe disability. Requires constant nursing care.
Score: 5
Review of Systems
-
Unable to obtain full review of systems at this time due to: Dementia and Aphasia
Physical Exam
-
General: Appears Stated Age
Neck: Full Range of Motion
Respiratory: No Dyspnea
Cardiac: No JVD
GI: Non-distended
Skin: Unremarkable
Extremities: No Clubbing, No Cyanosis and No Edema
Psych: Unable to Assess
Extended Neurological Exam
Mood & Affect: Unable to Assess
Attention Span & Concentration: Awake and Severe Difficulty with 2 Step Request
Memory: Unable to Recall and Unable to Recall Personal History
Tremor: Hand Tremor Absent and Head Tremor Absent
Speech: Expressive Aphasia
Cranial Nerve II: Left Eye: Visual Khan Grossly Intact
Cranial Nerve II: Right Eye: Visual Khan Grossly Intact
Cranial Nerves III, IV, : Extraocular Movement: Extraocular Movement Full in all Directions
Cranial Nerve VII: Facial Symmetry: Normal Facial Symmetry
Muscle Strength, Overall: Other (not following commands, moving all extremities)
Pronator Drift: No Drift in Upper Extremities and No Drift in Lower Extremities
Deep Tendon Reflexes: Unremarkable Throughout
Data Reviewed
-
CT-Perfusion: Report Reviewed and Image Reviewed
CT Head: Report Reviewed and Image Reviewed
MRI Head: Ordered
EEG: Ordered
Labs: Report Reviewed
Reviewed with: Physician, Nurse and Patient
Old Records: Summarized
Medications
-
Home Medications
�Medication �Instructions �Recorded
cholecalciferol (vitamin D3) 25 1 tab PO DAILY 06/02/21
mcg (1,000 unit) tablet
coQ10 (ubiquinol) 100 mg capsule 300 mg PO DAILY 06/02/21
krill 500 mg-omega-3 150 mg-dha 45 1 cap PO DAILY 06/02/21
mg-epa 75 nt-lizmydk-pidpr capsule
(krill oil)
simvastatin 20 mg tablet 20 mg PO QPM 06/02/21
levothyroxine 25 mcg tablet 25 mcg PO DAILY 08/25/23
magnesium 200 mg tablet 400 mg PO DAILY 08/25/23
jmpspjdhdooq-ysuzssbk-gifgsq tablet 1 tab PO DAILY 08/25/23
hydralazine 25 mg tablet 25 mg PO BID #0 tabs 09/20/23
omeprazole 40 mg capsule,delayed 40 mg PO DAILY #0 caps 09/20/23
release
valsartan 320 1 tab PO DAILY #0 tabs 09/20/23
mg-hydrochlorothiazide 25 mg
tablet (Diovan HCT)
diltiazem HCl 240 mg capsule,24 240 mg PO DAILY 03/21/25
hr,extended release
duloxetine 30 mg capsule,delayed 30 mg PO DAILY 03/21/25
release sprinkle
estradiol 0.01% (0.1 mg/gram) 1 appful vaginal DAILY 03/21/25
vaginal cream (Estrace)
acetaminophen 325 mg tablet 650 mg (2 x 325 mg) PO Q4HPRN PRN 03/27/25
PEÑA, mild pain, or temp >100.4F #0
tabs
ciprofloxacin HCl 500 mg tablet 500 mg PO BID 2 days #4 tabs 03/27/25
(Cipro)
Past History
Past History
ED Past Medical History: Cancer (breast, uterine), GERD, HTN, Hypercholesterolemia, Hypothyroidism and Other (gout, iron deficiency, mild pulm HTN)
ED Past Surgical History: Cholecystectomy and Orthopedic (Rotator cuff repair left)
Family/Social History
Tobacco: Non-smoker
Alcohol: None
Personal:
Living: with family
Employment: Retired
Family History: Other (Noncontributory)

Documented by User: Foreign Meneses MD 04/15/25 16:53
CVA Assessment
NIH Stroke Score
NIH Total Score:: 7
Modified [place] Score (MRS)
-
Score: 5
Past History
Past History
ED Past Medical History: Cancer (breast, uterine), GERD, HTN, Hypercholesterolemia, Hypothyroidism and Other (gout, iron deficiency, mild pulm HTN)
ED Past Surgical History: Cholecystectomy and Orthopedic (Rotator cuff repair left)
Social History
Tobacco: Non-smoker
Alcohol: None
Personal:
Living: with family
Employment: Retired
Family History
Family History: Other (Noncontributory)
[2025-04-15 13:57] LABS: Glucose - Point of Care 120 mg/dl (70-99)
[2025-04-15 14:17] LABS: Hematocrit 25.3 % (37.0-47.0); Hemoglobin 8.6 g/dL (12.0-16.0); Mean Corp Hgb Conc. 34.0 g/dL (33.0-37.0); Mean Corpuscular Volume 94.8 fL (81.0-99.0); Nucleated Red Blood Cells % 0 %; Platelet Count 248 10^3/uL (130-400); Red Cell Dist. Width 17.5 % (11.5-14.5)
[2025-04-15 14:21] LABS: INR 1.05; PT 14.0 Sec (11.4-14.6)
[2025-04-15] MEDS: TNKASE 3.6 MG IV (14:21)
[2025-04-15 14:22] LABS: APTT 41.0 Sec (23.4-35.0)
[2025-04-15 14:24] LABS: ALT (SGPT) 28 U/L (0-35); AST (SGOT) 32 U/L (14-36); Albumin 3.7 g/dl (3.5-5.0); Alkaline Phosphatase 96 U/L (38-126); Blood Urea Nitrogen 21 mg/dl (7-17); Calcium 8.9 mg/dl (8.4-10.2); Carbon Dioxide 20 mmol/L (22-30); Chloride 97 mmol/L (98-107); Estimated Creatinine Clearance 36 ml/min; Glucose 125 mg/dl (70-99); Potassium 4.7 mmol/L (3.5-5.1); Sodium 126 mmol/L (135-145); Total Protein 6.5 g/dl (6.3-8.2); eGFR 49.55
--- NOTE | 2025-04-15 14:28 | ED.CVA ---
History of Present Illness
General
Chief Complaint: CVA/TIA Symptoms
Source: patient, records, spouse and ambulance crew
Exam Limitations: clinical condition
Time Seen by Provider: 04/15/25 14:01
Nursing documentation reviewed up to this point in time: agreed with
Onset of Stroke Symptoms
Onset of symptoms known: Yes
Date of onset of symptoms: 04/15/25
Time of onset of symptoms: 11:00
History of Present Illness
History of Present Illness:
85-year-old female with a past medical history of hypertension, GERD, uterine cancer status post chemoradiation who presents to the emergency room from intermediate facility for evaluation of speech disturbance. Of note patient was admitted to ""[facility] 03/23 until 03/27�at that time she presented with altered mental status was seen as a stroke alert. MRI at that time showed a 4 mm enhancing lesion in the right cerebral hemisphere; stroke was excluded patient also received LP during
that workup which ruled out leptomeningeal carcinomatosis. It was felt that this finding on MRI was unlikely cause of her symptoms. She had urinary retention requiring Mccabe catheter prior to her presentation previously and was found to have
catheter associated UTI and it was felt that symptoms were related to encephalopathy from this.
She presents to the emergency room today via EMS for evaluation of expressive aphasia. She is unable to meaningfully participate in history due to this issue. According to her she was in her normal state of health this morning without any
speech disturbance. She had an appoint with urology and had her catheter removed and was in the midst of a trial of void; unfortunately was not able to void after removal and was set to go to the urologist this afternoon for replacement. At around
11 AM she had abrupt onset of expressive aphasia and EMS was called to bring her to the hospital. Prehospital stroke alert activated. did not note any weakness or numbness in the extremities, facial drooping. EMS did question some
left-sided weakness in the report. No fall or trauma reported. Medication review shows no blood thinners.
Past History
Past History
ED Past Medical History: Cancer (breast, uterine), GERD, HTN, Hypercholesterolemia, Hypothyroidism and Other (gout, iron deficiency, mild pulm HTN)
ED Past Surgical History: Cholecystectomy and Orthopedic (Rotator cuff repair left)
Social History
Tobacco: Non-smoker
Alcohol: None
Personal:
Living: with family
Employment: Retired
Family History
Family History: Other (Noncontributory)
Review of Systems
Review of Systems
Unable to obtain full review of systems at this time due to: due to acuity
All Other Systems: Not applicable
Phy Exam
Physical Exam
Physical Exam:
General: Awake, alert
Head: Normocephalic, atraumatic
Eyes: Conjunctiva normal, EOMI, pupils equal round and reactive to light bilaterally
Throat: Airway intact, handling secretions
Neck: Trachea midline, supple without meningismus
Lungs: Clear to auscultation bilaterally, no wheezing, rales, rhonchi
Heart: Regular rate and rhythm, no murmurs, gallops, or rubs
Abd: Soft, non distended, no apparent tenderness; she does have a mass in the pelvic/groin area
Neuro: Cranial nerves intact, expressive aphasia noted with mild dysarthria, motor and sensory intact in the extremities without weakness/drift
Extremities: No edema in extremities, equal pulses in all extremities
Scores
NIH Stroke Score
Level of Consciousness: 0 - Alert
LOC Questions: 1-Answers one correctly
LOC Commands: 0-Performs both correctly
Best Horizontal Gaze: 0-Normal
Visual Khan: 0=Normal, no visual loss
Facial Palsy: 0=Normal, symmetrical
Motor - Right Arm: 0=No drift 10 seconds
Motor - Left Arm: 0=No drift 10 seconds
Motor - Right Le-No drift 5 seconds
Motor - Left Le-No drift 5 seconds
Limb Ataxia: 0-Absent
Sensation: 0-Normal
Best Language: 2-Severe aphasia
Dysarthria: 1-Mild slurring
Extinction and Inattention: 0-No abnormality
NIH Total Score:: 4
Heart Failure Risk
Heart Failure Risk Score: Not Applicable
Heart Score for Chest Pain Patients
STEMI patient?: Not applicable
Withdrawal Assessment of Alcohol
Withdrawal Assessment Completed?: Not applicable
Course
Orders/Labs/Results
Orders:
Orders
04/15/25 13:54
Electrocardiogram (*1) Urgent
Reason for Study: Other
Other Reason for Exam: Possible Stroke
CT HEAD STROKE ALERT W/o Cont Urgent
Comment:
Reason For Exam: aphasia
Bedside Glucose- Treatment ONCE
Cardiac Monitoring- Treatment ONCE
IV Insert/Care/Rem.- Treatment PRN
Urinalysis Reflex To Culture Urgent
Date Specimen was Collected: 04/15/25
Time Specimen was Collected: 13:55
Vital Signs As Directed
Frequency: Other
Weight As Directed
Frequency: Once
Comment: ZERO STRETCHER SCALE FOR ACCURATE WEIGHT
O2 Therapy [RESP] Urgent
Titrate/Wean O2 to maintain O2 sat greater than (%): 93
Special Instructions: MAINTAIN CONTINUOUS O2 SATS > OR = 93%
04/15/25 13:55
EKG- Treatment ONCE
04/15/25 14:00
CT BRAIN PERF STROKE ALERT Urgent
Comment:
Reason For Exam: aphasia
Complete Blood Count/With Diff Urgent
Comprehensive Metabolic Panel Urgent
PTT Urgent
Prothrombin Time Urgent
TSH Reflex To Free T4 Urgent
Comment: ADD ON
Troponin I Urgent
04/15/25 14:01
CT HEAD/NECK ANG STROKE ALERT Stat
Comment:
Reason For Exam: stenosis
04/15/25 14:08
Tenecteplase [Tnkase] 18 mg Syringe [Syringe Non-Pump] 0 ml IV NOW
Provider explained risk/benefits to patient &/or caregiver?: Other
Comment: Patient unable to comprehend
04/15/25 14:25
EEG Extend Monitor >1hr Routine
Reason for Exam: ? CPS
Neurology Consult:: DR. MEDELLIN
Lorazepam [Ativan] 1 mg IV NOW ONE
04/15/25 14:27
Midazolam HCl [Versed] 1 mg IV NOW STA
04/15/25 14:28
Mccabe Placement- Treatment ONCE
Reason for insertion: Acute Retention
04/15/25 14:37
Urine Protein/Creat Ratio (Random) [Protein/Creat Ratio (Random)] Urgent
Urine Sodium Urgent
04/15/25 14:38
Osmolality, Random Urine Urgent
04/15/25 14:56
Add On- LAB Urgent
Tests Added?: TSH reflex to free T4
Abnormal Lab Results
04/15/25 04/15/25
13:56 14:00
RBC 2.67 L 10^6/uL
(4.20-5.40)
Hgb 8.6 L g/dL
(12.0-16.0)
Hct 25.3 L %
(37.0-47.0)
MCH 32.2 H pg
(27.0-31.0)
RDW 17.5 H %
(11.5-14.5)
MPV 10.8 H fL
(7.4-10.4)
Absolute Neuts (auto) 8.5 H 10^3/uL
(1.4-6.5)
Absolute Lymphs (auto) 0.3 L 10^3/uL
(1.2-3.4)
Absolute Monos (auto) 1.1 H 10^3/uL
(0.1-0.6)
Neutrophils % 85.3 H %
(42.2-75.2)
Lymphocytes % 3.3 L %
(20.5-51.1)
Monocytes % 10.6 H %
(1.7-9.3)
APTT 41.0 H Sec
(23.4-35.0)
Sodium 126 L mmol/L
(135-145)
Chloride 97 L mmol/L
(98-107)
Carbon Dioxide 20 L mmol/L
(22-30)
BUN 21 H mg/dl
(7-17)
Creatinine 1.1 H mg/dL
(0.6-1.0)
Glucose 125 H mg/dl
(70-99)
POC Glucose 120 H mg/dl
(70-99)
04/15/25 14:00
04/15/25 14:00
Vital Signs
Initial and Last Documented VS:
Initial Vital Signs
Pulse Resp BP
103 19 139/54
04/15/25 13:57 04/15/25 13:57 04/15/25 13:57
Last Documented Vital Signs
Temp Pulse Resp BP Pulse Ox
36.9 C 102 23 143/49 100
04/15/25 13:58 04/15/25 14:36 04/15/25 14:36 04/15/25 14:36 04/15/25 14:28
MDM/Problems Addressed
Differential Diagnosis Includes:
CVA, seizure, brain mass/brain bleed, TME
MDM/Problems Addressed:
85-year-old female presents for evaluation of expressive aphasia as described above. Onset 11 AM per . Patient is not on blood thinners. Stroke alert activated. Hospital patient seen in conjunction with neurology on arrival. She was
taken for CT head which showed no acute bleed on review in real-time. Discussed at length with neurology as well as with patient's and decision made to proceed with tenecteplase. Critical care alert activated. Usual labs sent off,
awaiting results of CTA/CTP.
CT perfusion shows no acute abnormality. Case discussed with neurology�plan to treat with Ativan and order for EEG to rule out signs of seizure. CBC and CMP reviewed: She does have hyponatremia with a sodium of 126 compared to 134 on
discharge�urine studies added. Her creatinine is stable at 1.1. CBC showed stable anemia. Hospitalist working on admission to ICU.
Chronic conditions affecting care:
Hypertension
*Pulse Oximetry
SaO2: 100
Oxygen Mode of Delivery: Room air
Patient hypoxic: no (100%)
*EKG
Interpreted by ED Provider?: Yes
Heart Rate: 96
Rate: normal
Rhythm: sinus
Hugo: left axis deviation
Interval: normal interval
QRS Pattern: other (Bifascicular block)
Ischemia: other (Nonspecific T wave abnormalities)
*Critical Care Note
Total Time (30-74mins, 75-104mins- exclusive of procedures): 30
comment:
Critical care statement: A total of 30 minutes of critical care time was provided for this patient. This includes management of unstable vital signs, evaluation of the patient at bedside, frequent reassessment, discussion with
consultants/hospitalist, and review of pertinent medical records. This time was separate from time utilized to perform any aforementioned documented procedures
Data Reviewed
Review of Other/Old Records Reveals: Labs, Records and Radiology Studies
Source: patient, records, family and ambulance crew
Patient Management
Discussion with other providers: Hospitalist (Discussed with hospitalist), Dry Sander (Discussed with neurologist) and Radiologist (Discussed with radiologist)
Escalation/DeEscalation of care consider admission/obs:
Admission indicated
ED Attending Note
-
Portions of this chart may have been created with voice recognition software.� Occasional wrong word or��sound alike� substitutions may have occurred due to the inherent limitations of voice recognition software.
Discharge Plan
Departure
Patient Disposition: Admit
Date of Disposition: 04/15/25
Time of Disposition: 14:17
Admit to doctor: Eugenio
Presentation/result/management discussed w/ accepting MD/DO: Hospitalist
Discharge Problem:
Acute CVA (cerebrovascular accident), Hyponatremia
Prescriptions:
No Action
simvastatin 20 MG tablet
20 mg PO HS
cholecalciferol (vitamin D3) 1,000 UNITS tablet
1,000 mcg PO DAILY
coQ10 (ubiquinol) 100 MG capsule
300 mg PO DAILY
levothyroxine 25 mcg Tablet
25 mcg PO DAILY
magnesium 200 mg Tablet
400 mg PO DAILY
Milltrium Senior Tablet
1 tab PO DAILY
hydralazine 25 MG tablet
25 mg PO BID Qty: 0 0RF
Rx Instructions:
HOLD IF systolic blood pressure <130 while on Oxycodone.
omeprazole 40 mg Capsule,Delayed Release(Dr/Ec)
40 mg PO DAILY Qty: 0 0RF
Rx Instructions:
Take daily while on Meloxicam and full dose Aspirin to prevent GI upset.
diltiazem HCl 240 mg Capsule,Extended Release 24 Hr
240 mg PO DAILY
duloxetine 30 mg Capsule, Delayed Rel Sprinkle
30 mg PO DAILY
estradiol [Estrace] 0.01 % (0.1 mg/gram) Cream
1 g VAGINAL DAILY
acetaminophen 325 mg Tablet
650 mg PO Q4HPRN PRN (Reason: PEÑA, mild pain, or temp >100.4F) Qty: 0 0RF
latanoprost 0.005 % Drops
1 drp BOTH EYES HS
spironolactone 25 mg Tablet
25 mg PO DAILY
methenamine hippurate [Hiprex] 1 gram Tablet
1 g PO BID
valsartan 320 mg Tablet
320 mg PO DAILY
calcium carbonate [Tums] 200 mg calcium (500 mg) Tablet,Chewable
200 mg PO DAILYPRN PRN (Reason: heart burn)
buprenorphine 20 mcg/hour Patch Weekly
1 patch TRANSDERMAL KYLE@1830
potassium chloride 20 mEq Tablet Extended Release
20 meq PO DAILY
Referrals:
Anshu Xie MD [Family Provider]
Interventions
Interventions:
*ED COVID-19 Vaccine History Last Done: 04/15/25 14:09
ED- Neurological Assessment Last Done: 04/15/25 14:05
Discharge Date and Time
Print Language: ARABIC
[2025-04-15] MEDS: VERSED 1 MG IV (14:32)
[2025-04-15 14:36] LABS: Troponin I < 0.012 ng/ml
--- NOTE | 2025-04-15 15:57 | HPS.HSE ---
Family Physician
-
Family Physician: Anshu Xie
Chief Complaint
-
Altered Mental Status
History of Present Illness
This is an 85 y/o female with pmhx of gastroesophageal reflux disease, hypothyroidism, essential hypertension and endometrial cancer with METS s/p chemoradiation (Recently completed) who presented to the ED on 04/15/2025 with altered mental status.
She had previously been admitted to this hospital from 03/23-03/27 for altered mental status due to catheter associated UTI.
Patient is a poor historian due to difficulty with both understanding questions and answering them. She is aware that she is having difficulty answering questions. Her reports she has been at her baseline until 11AM today. She is normally
without speech disturbances and is able to independently manage her own medications. She was living at an acute rehab facility following her hospitalization in March, and her states she was doing very well and there were discussions about her
returning home in the next few days.
At 9AM this morning, she had an urology appointment to remove her catheter, which she has had for 6 months at this point. This was done successfully, but she did not produce any urine after it was removed. Her reports she was not drinking as
much water as she should have been during this time. Then, around 11AM, she suddenly began behaving strangely and was unable to answer questions or follow instructions. He reports these are the same symptoms that she had when she presented to this
ED in March. He denies the patient complaining of any falls, weakness, numbness, facial drooping, fevers, chills, malodorous urine. He does report she had some pain due to the catheter being in place. He called 911, and the patient was transported
via EMS to the ED.
Medical History
Past Medical History
Past Medical History: Reports Cancer (Endometrial with METS, s/p chemoradiation. Breast cancer), GERD, HTN, Hypercholesterolemia and Hypothyroidism
Past Surgical History: Reports Cholecystectomy and Orthopedic (Left rotator cuff repair)
Additional Past Surgical History:
Additional unknown shoulder and back surgeries reported by
Social History
Unable to obtain full social history at this time due to: Acuity
Tobacco: Non-smoker
Alcohol: None
Personal:
Living: Other (Acute rehab following most recent hospitalization)
Family History
Family History: Unable to Obtain
Allergies / Home Medications
Allergies reflects when Allergies were last updated in [facility].
Home Medications with original date entered in [facility]
Allergy/Medication List:
Allergies
Allergy/AdvReac Type Severity Reaction Status Date / Time
No Known Allergies Allergy Verified 04/15/25 13:57
Home Medications
cholecalciferol (vitamin D3) 25 mcg (1,000 unit) tablet 1,000 mcg PO DAILY 06/02/21
coQ10 (ubiquinol) 100 mg capsule 300 mg PO DAILY 06/02/21
simvastatin 20 mg tablet 20 mg PO HS 06/02/21
levothyroxine 25 mcg tablet 25 mcg PO DAILY 08/25/23
magnesium 200 mg tablet 400 mg PO DAILY 08/25/23
nedkjyhoxfiq-kqyvgfcv-hqcnah tablet (Milltrium Senior tablet) 1 tab PO DAILY 08/25/23
hydralazine 25 mg tablet 25 mg PO BID #0 tabs 09/20/23
omeprazole 40 mg capsule,delayed release 40 mg PO DAILY #0 caps 09/20/23
diltiazem HCl 240 mg capsule,24 hr,extended release 240 mg PO DAILY 03/21/25
duloxetine 30 mg capsule,delayed release sprinkle 30 mg PO DAILY 03/21/25
estradiol 0.01% (0.1 mg/gram) vaginal cream (Estrace) 1 g vaginal DAILY 03/21/25
acetaminophen 325 mg tablet 650 mg (2 x 325 mg) PO Q4HPRN PRN PEÑA, mild pain, or temp >100.4F #0 tabs 03/27/25
buprenorphine 20 mcg/hour weekly transdermal patch 1 patch transdermal KYLE@1830 04/15/25
calcium carbonate (Tums) 200 mg PO DAILYPRN PRN heart burn 04/15/25
latanoprost 0.005 % eye drops 1 drp BOTH EYES HS 04/15/25
methenamine hippurate 1 gram tablet 1 g PO BID 04/15/25
potassium chloride 20 mEq tablet,extended release 20 meq PO DAILY 04/15/25
spironolactone 25 mg tablet 25 mg PO DAILY 04/15/25
valsartan 320 mg tablet 320 mg PO DAILY 04/15/25
Review of Systems
-
Unable to obtain full review of systems at this time due to: Acuity
History Source: Patient and Family ()
A 12 point ROS was completed and negative except as noted: No
Constitutional: Reports See HPI
Physical Exam
Vital Signs
Vital Signs
Temp Pulse Resp BP Pulse Ox
98.5 F 83 20 131/42 100
04/15/25 13:58 04/15/25 15:51 04/15/25 15:51 04/15/25 15:51 04/15/25 14:28
Physical Exam
General: Well Developed, Well Nourished, No Apparent Distress and Other (Mumbling and fishing for words when asked questions, waxing and waning with being able to provide short (3-5 word) answers and answering with incoherent words)
HEENT: NormoCephalic and Atraumatic
Neuro: Awake, Alert, Oriented (Was able to provide her name when asked on two separate occasions, provided her birthday 1/2 times, was unable to describe where she was), Facial Droop (Small, left sided) and Other (Difficult to assess sensation or
perform neurologic exam. Uncertain if this is due to patient being unable to perform tasks, or if she was unable to understand the direction being asked of her. )
Psych: Confused (Patient aware that she is unable to answer appropriately)
Laboratory Results
-
04/15/25 14:00
04/15/25 14:00
Laboratory Results
PT 14.0 Sec (11.4-14.6) 04/15/25 14:00
INR 1.05 04/15/25 14:00
APTT 41.0 Sec (23.4-35.0) H 04/15/25 14:00
Total Bilirubin 0.6 mg/dl (0.2-1.3) 04/15/25 14:00
AST 32 U/L (14-36) 04/15/25 14:00
ALT 28 U/L (0-35) 04/15/25 14:00
Alkaline Phosphatase 96 U/L (38-126) 04/15/25 14:00
Troponin I < 0.012 ng/ml 04/15/25 14:00
Impression/Plan
-
IMPRESSION:
PLAN:
Altered Mental Status
DD: Thromboembolic stroke, Catheter-related UTI or other infection (See prior admission in March 2025), head injury (Unlikely based on physical exam, denies recent falls, and patient is a current resident of an acute rehab)
-CT Brain did not show any region of hypo perfusion or infarct.
-CT Head/Neck did not show any acute abnormalities
-Pending: TSH w/ reflex to T4, UA w/ reflex to culture, Urine Electrolytes, Urine Osmolality, Urine protein/creat ratio
-Neurology has been consulted, will appreciate their insight into this case
-Patient�s urine culture in 03/2025 grew pseudomonas. In the setting of a normal WBC, normal heart rate and normal respiration rate, will hold off on antibiotics for now.
-Will monitor BMP
Gastroesophageal Reflux Disease
-Continue home meds (Tums, omeprazole)
Hypothyroidism
-Continue home meds (levothyroxine)
Essential Hypertension
-Continue home meds (diltiazem, hydralazine, valsartan)
Hyperlipidemia
-HOLD home meds (Simvastatin)
Anemia
-Hemoglobin 8.6 and Hematocrit 25.3 on admission
-Iron deficiency vs anemia of chronic disease. No current iron studies on file
-Will monitor CBC daily
Hyponatremia
-Sodium 126 on admission
-Continue IV NS fluids
-Will monitor BMP daily
[2025-04-15 16:38] LABS: Urine Character Clear (Clear)
--- NOTE | 2025-04-15 18:03 | CON.INTV ---
Consultation
Consultation Request
Date/Time Consultation Requested: 04/15
Date/Time Consultation Performed: 04/15
Reason for Consultation: Critical CARE
Medical History
-
History of Present Illness:
history obtained primarily from the chart. Patient with expressive aphasia but is able to answer simple questions yes or no. 85-year-old female with history of breast cancer, uterine cancer with a vaginal mass, hypothyroidism, recently
hospitalized and discharged 03/27/25 with acute toxic metabolic encephalopathy, UTI and found to have 4.4 mm enhancing lesion in the right cerebellar hemisphere. She also had some myocardial injury at that time. Patient had LP at that time which
ruled out leptomeningeal carcinomatosis. Mentation improved after treatment for UTI. Patient now presents by ambulance crew from [facility] for aphasia. Per ED records, early in the morning no speech disturbance. Around 11 AM,
speech aphasia was noted, with no obvious focal weakness although he did our records suggest left-sided weakness. Upon arrival to [facility], afebrile, pulse 102, breathing at 23, blood pressure 143/49, 100% saturation. CT imaging
without any acute findings. Stroke alert was called, patient was seen by neurology, received TNK at approximately 1300. Admitted to ICU for further management. Current NIH score 6. We are asked to help from critical care standpoint
Presently, patient denies shortness of breath, chest pain, headaches, nausea, abdominal pain. She can answer yes or no answers but with further questions, unable to obtain additional history
.
PMH: History of breast cancer, uterine cancer with vaginal mass, GERD, hypertension, hypercholesterolemia, hypothyroidism, recent TIA, history of dementia per records
Past Medical History
Past Medical History: None ( see above)
Past Surgical History: None ( see above)
Social History
Tobacco: Non-smoker
Alcohol: None
Drug: None
Personal:
Living: Prison ( list with family but currently at senior living facility)
Employment: Retired
Family History
Family History: Unable to Obtain
Allergies / Home Medications
Allergies
Allergy/AdvReac Type Severity Reaction Status Date / Time
No Known Allergies Allergy Verified 04/15/25 13:57
Home Medications
�Medication �Instructions �Recorded �Confirmed �Last Taken �Type
cholecalciferol (vitamin D3) 25 1,000 mcg PO DAILY Supplement 06/02/21 04/15/25 1 Week Ago History
mcg (1,000 unit) tablet ~09/13/23
coQ10 (ubiquinol) 100 mg capsule 300 mg PO DAILY Supplement 06/02/21 04/15/25 1 Week Ago History
~09/13/23
simvastatin 20 mg tablet 20 mg PO HS High Cholesterol 06/02/21 04/15/25 09/19/23 18:00 History
levothyroxine 25 mcg tablet 25 mcg PO DAILY Thyroid 08/25/23 04/15/25 09/20/23 04:30 History
magnesium 200 mg tablet 400 mg PO DAILY Electrolyte 08/25/23 04/15/25 1 Week Ago History
Repletion ~09/13/23
nxkhqahmwsma-gdwdwxzf-irylfk 1 tab PO DAILY Supplement 08/25/23 04/15/25 Unknown History
tablet ([employer] tablet)
hydralazine 25 mg tablet 25 mg PO BID #0 tabs 09/20/23 04/15/25 09/19/23 18:00 Rx
omeprazole 40 mg capsule,delayed 40 mg PO DAILY #0 caps 09/20/23 04/15/25 09/18/23 19:00 Rx
release
diltiazem HCl 240 mg capsule,24 240 mg PO DAILY Heart 03/21/25 04/15/25 Unknown History
hr,extended release Disease/Condition
duloxetine 30 mg capsule,delayed 30 mg PO DAILY Pain 03/21/25 04/15/25 Unknown History
release sprinkle
estradiol 0.01% (0.1 mg/gram) 1 g vaginal DAILY Hormonal Agent 03/21/25 04/15/25 Unknown History
vaginal cream (Estrace)
acetaminophen 325 mg tablet 650 mg (2 x 325 mg) PO Q4HPRN PRN 03/27/25 04/15/25 Unknown Rx
EPÑA, mild pain, or temp >100.4F #0
tabs
buprenorphine 20 mcg/hour weekly 1 patch transdermal KYLE@1830 Pain 04/15/25 04/15/25 Unknown History
transdermal patch
calcium carbonate (Tums) 200 mg PO DAILYPRN PRN heart burn 04/15/25 04/15/25 Unknown History
latanoprost 0.005 % eye drops 1 drp BOTH EYES HS Eye Condition 04/15/25 04/15/25 Unknown History
methenamine hippurate 1 gram tablet 1 g PO BID Urinary Issue 04/15/25 04/15/25 Unknown History
potassium chloride 20 mEq 20 meq PO DAILY Electrolyte 04/15/25 04/15/25 Unknown History
tablet,extended release Repletion
spironolactone 25 mg tablet 25 mg PO DAILY Blood Pressure 04/15/25 04/15/25 Unknown History
valsartan 320 mg tablet 320 mg PO DAILY Blood Pressure 04/15/25 04/15/25 Unknown History
Review of Systems
-
Unable to Obtain full review of systems at this time due to: Acuity and Patient Non Verbal ( expressive aphasia)
Vitals / Labs / Diagnostic Testing
Vital Signs
Temp Pulse Resp BP Pulse Ox
98.5 F 103 29 140/52 97
04/15/25 13:58 04/15/25 17:30 04/15/25 17:30 04/15/25 17:22 04/15/25 17:30
Lab Data
04/15/25 14:00
04/15/25 14:00
Laboratory Results
04/15/25
14:00
PT 14.0
INR 1.05
APTT 41.0 H
Diagnostic Testing:
Physical Exam
-
HEENT: Normocephalic and Anicteric
Cardiovascular: S1/S2, Regular Rhythm, Murmur (n), Rub (n), Peripheral Edema (n) and Calf Tenderness (n)
Respiratory: Wheeze (n), Rales (n), Rhonchi (n) and Non-Labored Respirations
GI: Soft, Non Distended and Non Tender
Neurology: Awake, Alert and No Motor Deficits ( moves all extremities, expressive aphasia noted. Cranial nerves grossly intact)
Skin: Good Color
General: Comfortable
Assessment
-
85-year-old female with history of breast cancer, uterine cancer, known vaginal mass, recent hospital stay 03/27/25 for mental status changes thought to be secondary to UTI with improvement. Now presents with acute onset expressive aphasia at
approximately 11 in the morning. Imaging unremarkable. Received TNK approximately 1300 and admitted to ICU for further evaluation
Acute stroke with expressive aphasia
Onset approximately 11 AM
Status post TNL approximately 1 PM
986
Hyponatremia, admission sodium 126
Conditions present prior to admission
Pulmonary hypertension, PA pressure 53
Right bundle branch block
Bifascicular block
Hypertension/Hypercholesterolemia
Hypothyroidism
History of endometrial cancer with metastases
Chemoradiation
Vaginal wall mass
Followed at [place]
History of breast cancer
History of dementia
Plan/recommendations
At this time, patient remains critically ill but appears comfortable
NIH score 6, aphasia noted, otherwise neurological exam nonfocal per my review
Follow neuro exam
Sequential teds
Status post TNK approximately 1 PM with onset of symptoms 11 AM
History of metastatic cancer noted
Per records, states history of back surgeries in the past
Presently patient denies any back pain, headaches, nausea, vision changes
Follow closely for bleeding
Await follow-up imaging in 24 hours
Patient currently full code
Consider discussion regarding CODE STATUS given metastatic disease now in the setting of acute stroke
Head of bed elevated, aspiration precautions
Review of critical care nursing
We will follow
TCCT 31 min
[2025-04-15] MEDS: NSS 1000 IV (18:18)
--- NOTE | 2025-04-15 19:19 | PTCARENOTE ---
Addendum entered by Tabitha Holliday RN 04/15/25 19:32:
No Buprenorphine patch noted on pt.Dr Livingston made aware.
Original Note:
1654-Bedside report in ED.NIHSS completed in tandem with outgoing ED RN. + 02/11 DINERO.+ expressive aphasia. Slight left facial droop noted.SR noted.IVF infusing.Decreased breath sounds bibasilar noted.POX 98% on RA.NPO.No BM.Mccabe draining yellow
urine.Skin integrity as documented.
[2025-04-15] MEDS: APRESOLINE 25 MG PO (19:38)
--- NOTE | 2025-04-15 20:15 | PTCARENOTE ---
Received patient AAOx2, oriented to self and place. Patient asking multiple times what time it is, forgetful and flat affect. NIHSS done at bedside with previous nurse, scored a 4 for aphasia, ataxia, and LOC questions. PERRLA 3 mm, brisk. 5/5
strengths in all extremities. NS 70s, BP stable 110s-140s/40s, afebrile. +1 b/l LE edema, SCDs on. 97% on room air, lung sounds diminished in the bases. No BM, grossman in place for retention draining yellow urine. Vaginal wall mass noted. Foam on
sacrum for pressure ulcer. Left PIV patent, WNL. Right subcutaneous port present, not accessed. Son updated over the phone. Patient comfortable, call john within reach.
[2025-04-15] MEDS: XALATAN OPHTHALMIC SOLUTION 1 DROP BOTH EYES (22:09)
[2025-04-16] VITALS (35 sets, daily range): BP systolic 93–151; BP diastolic 37–65; BMI 25.5
--- NOTE | 2025-04-16 00:46 | PTCARENOTE ---
Patient assessment unchanged from previous. Mouth care done, repositioned, grossman care done. Call john within reach.
[2025-04-16] MEDS: NSS 1000 IV ×3 (04:09→21:56)
--- NOTE | 2025-04-16 04:32 | PTCARENOTE ---
CHG bath done, labs sent, repositioned. Call john within reach.
[2025-04-16 04:40] LABS: Hematocrit 22.9 % (37.0-47.0); Hemoglobin 7.8 g/dL (12.0-16.0); Mean Corp Hgb Conc. 34.1 g/dL (33.0-37.0); Mean Corpuscular Volume 95.8 fL (81.0-99.0); Platelet Count 217 10^3/uL (130-400); Red Cell Dist. Width 17.6 % (11.5-14.5)
[2025-04-16 05:09] LABS: Blood Urea Nitrogen 16 mg/dl (7-17); Calcium 8.4 mg/dl (8.4-10.2); Carbon Dioxide 21 mmol/L (22-30); Chloride 103 mmol/L (98-107); Estimated Creatinine Clearance 38 ml/min; Glucose 95 mg/dl (70-99); Magnesium 1.1 mg/dl (1.6-2.3); Potassium 4.5 mmol/L (3.5-5.1); Sodium 131 mmol/L (135-145); eGFR > 60.00
[2025-04-16] MEDS: SYNTHROID 25 MCG PO (05:53)
[2025-04-16] MEDS: MAGNESIUM SULFATE 50 IV (05:53)
--- NOTE | 2025-04-16 07:15 | W.PN.HOSP.TC ---
Addendum entered and electronically signed by Aris Rae DO 04/17/25 15:17:
CDI: Hypomagnesemia present, repleted with magnesium sulfate 2 g IV
Original Note:
Today's Communication/Plan
-
MRI ordered
PT/OT ordered
Assessment / Plan
Assessment / Plan
Expressive Aphasia/Altered Mental Status
DD: CVA, Brain mets/vasogenic edema, Chronic catheter- related UTI, Seizure disorder.
-CT Brain did not show any region of hypo perfusion or infarct.
-CT Head/Neck did not show any acute abnormalities
-Status post TNK in the ED on 04/15/2025
-Patient's expressive aphasia has improved significantly since her admission
-Neurology has been consulted, will appreciate their insight into this case
-Patient�s urine culture in 03/2025 grew pseudomonas. In the setting of a normal WBC, normal heart rate and normal respiration rate, and improvement overnight, will hold off on antibiotics for now.
-Ordered MRI of brain
-Ordered PT/OT
-Continue as needed labetalol for BP goal of <180/105
-Will monitor BMP, CBC and temperature
-Will follow up on formal EEG report
Gastroesophageal Reflux Disease
-Continue home meds (Tums, omeprazole)
Hypothyroidism
-Continue home meds (levothyroxine)
Essential Hypertension
-Continue home meds (diltiazem, hydralazine, valsartan)
Hyperlipidemia
-HOLD home meds (Simvastatin)
Anemia
-Hemoglobin 8.6 and Hematocrit 25.3 on admission
-Iron deficiency vs anemia of chronic disease. No current iron studies on file, both have previously been documented.
-Will monitor CBC
Hypovolemic Hyponatremia
-On admission, sodium 126, Urine Osmolality 119, Urine sodium 22, Serum Chloride 97
-Sodium today: 131
-History of poor oral intake recently
-Continue IV maintenance fluids
-Will monitor BMP, Goal to correct 6-8 mEq per 24 hours
-Will consider nephrology consult if values worsen
-Will monitor BMP, CBC and temperature
Gastroesophageal Reflux Disease
-Continue home meds (Tums, omeprazole)
Hypothyroidism
-Continue home meds (levothyroxine)
Essential Hypertension
-Continue home meds (diltiazem, hydralazine, valsartan)
Hyperlipidemia
-HOLD home meds (Simvastatin)
Anemia
-Hemoglobin 8.6 and Hematocrit 25.3 on admission
-Iron deficiency vs anemia of chronic disease. No current iron studies on file, both have previously been documented.
-Will monitor CBC
Hypovolemic Hyponatremia
-On admission, sodium 126, Urine Osmolality 119, Urine sodium 22, Serum Chloride 97
-Sodium today: 131
-History of poor oral intake recently
-Continue IV maintenance fluids
-Will monitor BMP, Goal to correct 6-8 mEq per 24 hours
-Will consider nephrology consult if values worsen
Anticipated Discharge: > 48 hours
Subjective/Interval History
-
Date of Service: April 16, 2025
Patient was awake when I arrived. She was no longer suffering from expressive aphasia, and was able to follow conversation as well as instructions for her neurological exam. She states she does not remember much of yesterday and did not remember
clearly meeting me in the ED. She states the last thing she remembers was being in 'a [facility] or something' and going to the bathroom, but not making much urine. She remembers eating lunch and returning to the bathroom, but not much else. She
denies feeling any weakness, numbness, tingling, or experiencing any falls in the days leading up to yesterday.
I was able to review her medical conditions with her today, and confirmed her code status.
Objective Data
-
Labs:
Laboratory Results
04/16/25
04:27
WBC 6.6
Hgb 7.8 L
Hct 22.9 L
Plt Count 217
Sodium 131 L
Potassium 4.5
Chloride 103
Carbon Dioxide 21 L
BUN 16
Creatinine 0.9
Glucose 95
Calcium 8.4
Vital Signs:
Vital Signs
Temp Pulse Resp BP Pulse Ox
98 F 74 17 138/43 95
04/16/25 04:00 04/16/25 06:22 04/16/25 06:22 04/16/25 06:22 04/16/25 06:15
I&O
04/15/25 04/16/25 04/17/25
06:59 06:59 06:59
Intake Total 1220 / 1220
Output Total 1250 / 1250
Balance -30 / -30
Review of Systems
-
History Source: Patient
Constitutional: Denies Fever, Fatigue, Chills or Weakness
Respiratory: Denies Cough or Trouble Breathing
Cardiac: Denies Chest Pain
Abdomen/GI: Denies Abdominal Pain, Nausea, Vomiting, Diarrhea or Constipated
Genitourinary: Reports Other (Patient had chronic catheter removed yesterday, was only able to produce small amounts of urine after removal)
Musculoskeletal: Denies Muscle Weakness
Skin: Denies Rash
Neuro: Denies Dizzy, Headache, Weakness, Numbness, Ataxia, Tremors or Lightheadedness
Physical Exam
-
General: Well Developed, Well Nourished, No Apparent Distress and Comfortable
HEENT: Normocephalic and Atraumatic
Respiratory: Clear to Auscultation
Cardiac: Regular Rhythm and S1/S2
Musculoskeletal: No Edema
Skin: Warm and Dry
Neuro: Awake, Alert, Oriented (Patient oriented to herself and location. She was able to successfully tell me the month, but told me it was Tuesday and the year as 2023.) and Other (Patient was able to follow instructions. There were no deficits with
finger to note, and she was able to somewhat perform heel to [place], although her performance was limited by the compression devices on her legs); Negative Facial Droop
Psych: Calm
--- NOTE | 2025-04-16 07:47 | W.PN.INTV ---
Today's Communication / Plan
Recommendations
Await MRI imaging later today
Replete magnesium
Sequential teds for DVT prophylaxis
Chronic Mccabe catheter in place
Hemoglobin drop noted. Consider repeat later p.m. given recent TNK dosing
For transfer out of ICU. We will sign off. Please call with questions
Assessment
-
85-year-old female with history of breast cancer, uterine cancer, known vaginal mass, recent hospital stay 03/27/25 for mental status changes thought to be secondary to UTI with improvement. Now presents with acute onset expressive aphasia at
approximately 11 in the morning. Imaging unremarkable. Received TNK approximately 1300 and admitted to ICU for further evaluation
Acute stroke with expressive aphasia
Onset approximately 11 AM
Status post TNL approximately 1 PM
986
Hyponatremia, admission sodium 126, improved
Anemia, hemoglobin 7.8
Conditions present prior to admission
Pulmonary hypertension, PA pressure 53
Right bundle branch block
Bifascicular block
Hypertension/Hypercholesterolemia
Hypothyroidism
History of endometrial cancer with metastases
Chemoradiation
Vaginal wall mass
Followed at [place]
Chronic Mccabe catheter
History of breast cancer
History of dementia
Plan/recommendations
At this time, patient clinically improved
Overall improved, expressive aphasia improved
Blood pressure adequate
Hemoglobin noted 7.8
Chronic Mccabe catheter in place
No evidence of bleeding
Moving forward
Follow neuro exam
Sequential teds
Status post TNK approximately 1 PM with onset of symptoms 11 AM on 04/15
History of metastatic cancer noted
Per records, states history of back surgeries in the past
Presently patient denies any back pain, headaches, nausea, vision changes
Follow closely for bleeding
Consider follow-up hemoglobin later p.m. given recent TNK
Await follow-up imaging later today
Patient currently full code
Consider discussion regarding CODE STATUS given metastatic disease now in the setting of acute stroke
Head of bed elevated, aspiration precautions
Review of critical care nursing
For transfer out of ICU
Reviewed above with primary service
We will sign off. Please call with questions
Subjective Dataa
Subjective Data
Date of Service:
Date of Service: April 16, 2025
Subjective:
Patient is without complaints at this time. She denies shortness of breath, chest pain, lightheadedness, dizziness. Hemoglobin decreased to 7.8. No evidence of bleeding. Expressive aphasia has improved
Objective Data
Data Reviewed
Vital Signs / I&O / Oxygen:
Vital Signs
Temp Pulse Resp BP Pulse Ox
98 F 74 17 138/43 95
04/16/25 04:00 04/16/25 06:22 04/16/25 06:22 04/16/25 06:22 04/16/25 06:15
Intake and Output
04/15/25 04/16/25 04/17/25
06:59 06:59 06:59
Intake Total 1220 / 1220
Output Total 1250 / 1250
Balance -30 / -30
SaO2 95
Physical Exam
General: Comfortable
HEENT: Normocephalic and Anicteric
Cardiovascular: S1-S2, Regular Rhythm and Murmur (n)
Respiratory: Wheeze (n), Crackles (n), Rhonchi (n) and Non-Labored Respirations
GI: Non Distended and Non Tender
Neurology: Awake, Alert, Oriented and No Motor Deficits
Skin: Jaundice (n) and Rash (n)
Labs/Micro/Reports
Lab Data
04/16/25 04:27
04/16/25 04:27
Laboratory Results
04/15/25
14:00
PT 14.0
INR 1.05
APTT 41.0 H
--- NOTE | 2025-04-16 08:00 | PTCARENOTE ---
Received pt @ change of shift. [facility] completed w off-going RN- scored as a 2 this AM for mild L facial droop and mild aphasia- see flow sheet. B/L pupils 4mm/brisk/perrla. Neuro checks maintained q1h- see flow sheet. SR/ST w BBB on monitor. SpO2
99% on RA. +BS, abd soft/round; NPO status maintained ex sips/meds per orders. Chronic grossman in place draining clear/yellow urine. Vaginal mass present; red/purple/firm- MOY. #18 L AC PIV removed and R SC port accessed by VAT. NSS 90mL/hr infusing
via port- see MAR/flow sheet. Plan for MRI later. Son updated via phone. Pt. instructed on how to report care concerns and call alvaro w in reach.
[2025-04-16] MEDS: DIOVAN 320 MG PO (08:11)
[2025-04-16] MEDS: PROTONIX 40 MG PO (08:12)
[2025-04-16] MEDS: CYMBALTA DELAYED RELEASE 30 MG PO (08:12)
[2025-04-16] MEDS: CARDIZEM CD 240 MG PO (08:12)
[2025-04-16] MEDS: ESTRACE 0.01% VAGINAL CREAM 1 APPLIC VAG (08:12)
[2025-04-16] MEDS: ALDACTONE 25 MG PO (08:12)
[2025-04-16] MEDS: KCL 20 MEQ PO (08:12)
[2025-04-16] MEDS: APRESOLINE 25 MG PO ×2 (08:12→19:16)
--- NOTE | 2025-04-16 08:27 | W.PN.NEURO.1 ---
Addendum entered and electronically signed by Foreign Meneses MD 04/16/25 13:39:
Studies reviewed.
I have personally examined the patient. I reviewed and agree with the FLY FRAME TENDER's Note.
My addenda:
Awake, alert, interactive. No acute distress.
Speech intact. No tremor.
Extra-ocular movements grossly intact.
Facial movements full and symmetric. Hearing intact to normal conversational volume.
Normal UE movements bilaterally.
Neck: full ROM.
Chest: no dyspnea
Heart: no JVD
Ext: (-) Clubbing, (-) Cyanosis, (-) Edema
IMPRESSIONS/RECOMMENDATIONS:
Abrupt onset of aphasia
Presumed to be secondary to acute onset stroke. Differential diagnosis includes exacerbation of underlying known dementia although the severity initially and complete resolution suggest against this. Differential diagnosis would also include
seizure although this is again less likely
Check MRI of brain
Start aspirin 81 mg at 1400 hrs. if MRI of brain fails to demonstrate hemorrhagic stroke
Outpatient neuropsychological testing to determine if the patient would benefit from memory stabilizing medications
Continue lipid-lowering agent, check lipid profile
Rehabilitation evaluations and treatment
Goal of normotension
D/W patient / nursing
All questions answered.
Will continue to follow pending results.
Original Note:
Today's Communication / Plan
-
Impressions:
I. Abrupt onset of aphasia most likely due to acute ischemic stroke
Recommendations:
� goal blood pressure normotension
� check MRI of the brain
� can start antiplatelet therapy 24 hours following TNK
� LDL<70, continue Simvastatin 20 mg at bedtime when patient is able to take PO
� goal normoglycemia
� Speech, PT, OT evaluations needed
� DVT prophylaxis
� medical educational materials will be provided
� Neurochecks and NIHSS per unit guidelines
All questions encouraged and answered, plan of care discussed with Dr. Meneses, hospitalist, nurse and patient
Neuro Assessment/Plan
Assessment
85-year-old female with a past medical history of hypertension, GERD, uterine cancer status post chemoradiation who presents to the [facility] on 04/15/2025 from shelter facility for evaluation of abrupt onset of aphasia.
Head CT 04/15/2025: No acute intracranial abnormality noted.
Brain CT 04/15/2025: No region of hypoperfusion or infarct.
Head and neck CTA 04/15/2025:
Bilateral carotid bulb/ICA moderate calcified plaque. Estimated luminal diameter reduction on the right of 50%. Estimated luminal diameter reduction on the left of less than 50%. No occlusion or dissection.
Bilateral cavernous ICA calcified plaque formation. Estimated luminal diameter reduction of the right cavernous ICA of approximately 50%. Estimated luminal diameter reduction of the left cavernous ICA of 50-60%. No [place] region aneurysm
or occlusion.
No cerebral artery significant plaque, stenosis, thrombus, or occlusion.
The left vertebral artery is dominant. The right vertebral artery terminates as the posterior inferior cerebellar artery, a normal developmental variant.
Mild distention of the esophagus with fluid and air-fluid level. Recommend correlation to assess for the possibility of esophageal dysmotility or reflux.
EEG 04/15/2025: no seizures reported
Brain MRI 03/22/2025:
1. Moderate bilateral frontal and parietal lobe volume loss.
2. Minimal periventricular white matter leukoaraiosis.
3. Small 4.4 mm enhancing lesion in the right cerebellar hemisphere (probably extra-axial in location). Diagnostic possibilities are (1) a small leptomeningeal metastasis, (2) a small vascular malformation, (3) mild inflammatory or infectious
disease or (4) less likely a subacute ischemic infarct.
4. Severe right-sided facet joint arthrosis at C4/C5.
Labs from 03/22/2025: Cholesterol 126, LDL 49, B12 781, TSH 3.26
CSF from on 03/23/2025 unrevealing except protein elevated at 93
Plan
Impressions:
I. Abrupt onset of aphasia most likely due to acute ischemic stroke
Recommendations:
� goal blood pressure normotension
� check MRI of the brain
� can start antiplatelet therapy 24 hours following TNK
� LDL<70, continue Simvastatin 20 mg at bedtime when patient is able to take PO
� goal normoglycemia
� Speech, PT, OT evaluations needed
� DVT prophylaxis
� medical educational materials will be provided
� Neurochecks and NIHSS per unit guidelines
Plan of care discussed with Dr. Meneses, hospitalist, nurse and patient
Subjective/Objective
Subjective Data
Date of Service: April 16, 2025
No acute events overnight. Slept most of the night. Speech improved today.
Objective Data
Vital Signs
Temp Pulse Resp BP Pulse Ox
98 F 85 16 151/50 95
04/16/25 04:00 04/16/25 08:22 04/16/25 08:22 04/16/25 08:22 04/16/25 06:15
Lab Results
04/16/25 04:27
04/16/25 04:27
PT 14.0 Sec (11.4-14.6) 04/15/25 14:00
INR 1.05 04/15/25 14:00
APTT 41.0 Sec (23.4-35.0) H 04/15/25 14:00
Sodium 131 mmol/L (135-145) L 04/16/25 04:27
Potassium 4.5 mmol/L (3.5-5.1) 04/16/25 04:27
BUN 16 mg/dl (7-17) 04/16/25 04:27
Glucose 95 mg/dl (70-99) 04/16/25 04:27
Calcium 8.4 mg/dl (8.4-10.2) 04/16/25 04:27
Phosphorus 4.3 mg/dl (2.5-4.5) 04/16/25 04:27
Patient Allergies
No Known Allergies Allergy (Verified 04/15/25 13:57)
Physical Exam
-
General: Appears Stated Age
HEENT: Normocephalic, Atraumatic and Anicteric
Neck: Full Range of Motion
Respiratory: No Dyspnea
Cardiac: No JVD
GI: Non-distended
Skin: Unremarkable
Extremities: No Clubbing, No Cyanosis and No Edema
Psych: Apparent Dementia
Extended Neurological Exam
Attention Span & Concentration: Awake, Alert (knew correct month, stated year was 2023), Interactive and No Difficulty with 2 Step Request
Memory: Reduced and Incomplete Historian
Tremor: Hand Tremor Absent and Head Tremor Absent
Involuntary Movement: None
Speech: Mildly Reduced Output
Cranial Nerve II: Left Eye: Visual Khan Grossly Intact
Cranial Nerve II: Right Eye: Visual Khan Grossly Intact
Cranial Nerves III, IV, : Extraocular Movement: Extraocular Movement Full in all Directions
Cranial Nerve VII: Facial Symmetry: Normal Facial Symmetry
Cranial Nerve VIII: Hearing: Unremarkable Hearing to Normal Conversational Volume
Muscle Strength, Overall: Other (not following commands, moving all extremities)
Pronator Drift: No Drift in Upper Extremities and No Drift in Lower Extremities
Deep Tendon Reflexes: Unremarkable Throughout
Coordination: Sxlivr-jbrb-tbmcum Testing Unremarkable and Reaches for Objects without Difficulty
--- NOTE | 2025-04-16 13:43 | CM ---
Initial assessment completed with patient and medical records. Patient lives with her in a 2 story home, no basement, B/B on 2nd with 1/2 bath on 1st, 1 step to enter. [employer] patient was independent in ADL's with use of a RW. uses a
SPC. No in-home services. Patient does not remember if she has a HC-POA. PCP is Dr. Barb Valencia and Pharmacy is [facility] in [place]. Discharge POC: Awaiting therapy evaluation and recommendation.
[2025-04-16 14:33] LABS: HDL Cholesterol 59 mg/dl; LDL Cholesterol, Calculated 37 mg/dl; Very Low Density Lipoprotein 13 mg/dl (0-30)
[2025-04-16] MEDS: BUTRANS 20 MCG/HR 1 PATCH TRANSDERM (16:20)
[2025-04-16 16:24] LABS: Hematocrit 23.3 % (37.0-47.0); Hemoglobin 7.8 g/dL (12.0-16.0)
[2025-04-16 16:37] LABS: Magnesium 1.6 mg/dl (1.6-2.3)
--- NOTE | 2025-04-16 17:34 | PTCARENOTE ---
pt.'s MRI completed per orders. Report given to 4E RN and pt. transported via stretcher w belongings and on color television console monitor to rm [id number]. [facility] completed w oncoming RN. No further needs from this RN.
[2025-04-16] MEDS: LIPITOR 40 MG PO (17:39)
[2025-04-16] MEDS: XALATAN OPHTHALMIC SOLUTION 1 DROP BOTH EYES (21:10)
[2025-04-17] VITALS (8 sets, daily range): BP systolic 122–151; BP diastolic 41–61; PULSE 108–109; O2SAT 98–99
[2025-04-17 05:29] LABS: Hematocrit 21.6 % (37.0-47.0); Hemoglobin 7.1 g/dL (12.0-16.0); Mean Corp Hgb Conc. 32.9 g/dL (33.0-37.0); Mean Corpuscular Volume 97.3 fL (81.0-99.0); Platelet Count 209 10^3/uL (130-400); Red Cell Dist. Width 17.6 % (11.5-14.5)
[2025-04-17] MEDS: SYNTHROID 25 MCG PO (05:39)
[2025-04-17 05:59] LABS: Blood Urea Nitrogen 11 mg/dl (7-17); Calcium 8.3 mg/dl (8.4-10.2); Carbon Dioxide 21 mmol/L (22-30); Chloride 106 mmol/L (98-107); Estimated Creatinine Clearance 43 ml/min; Glucose 93 mg/dl (70-99); Potassium 4.4 mmol/L (3.5-5.1); Sodium 131 mmol/L (135-145); eGFR > 60.00
--- NOTE | 2025-04-17 07:21 | W.PN.HOSP.TC ---
Today's Communication/Plan
-
If patient continues to vomit will restart IV Fluids. Possible discharge to SNF tomorrow
Assessment / Plan
Assessment / Plan
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
DD: CVA, Brain mets/vasogenic edema, Chronic catheter- related UTI, Seizure disorder.
-CT Brain did not show any region of hypo perfusion or infarct.
-CT Head/Neck did not show any acute abnormalities
-Status post TNK in the ED on 04/15/2025
-Patient's expressive aphasia has improved significantly since her admission and is likely the result of a TIA given her improvement
-Continue as needed labetalol for BP goal of <180/105
-Will discuss outpatient vs inpatient echo and outpatient link device to try to determine if her aborted stroke was cardiogenic in origin
-Continue PT/OT follow up
-Will monitor BMP, CBC and temperature
Vomiting
-Ordered PRN Zofran for Nausea or Vomiting
-Will hold off on IV fluids unless patient continues to vomit
Gastroesophageal Reflux Disease
-Continue home meds (Tums, omeprazole)
Hypothyroidism
-Continue home meds (levothyroxine)
Essential Hypertension
-Continue home meds (diltiazem, hydralazine, valsartan)
Hyperlipidemia
-HOLD home meds (Simvastatin)
Anemia (Iron deficiency and Anemia of Chronic Disease)
-Hemoglobin 8.6 and Hematocrit 25.3 on admission. Hemoglobin 7.1 today.
-Patient previously documented with both Iron deficiency and anemia of chronic disease. Current anemia appears chronic and multifactorial between the two.
-Will monitor CBC
Hypovolemic Hyponatremia
-On admission, sodium 126, Urine Osmolality 119, Urine sodium 22, Serum Chloride 97
-Sodium today: 131, unchanged
-History of poor oral intake recently
-Will monitor BMP
Gastroesophageal Reflux Disease
-Continue home meds (Tums, omeprazole)
Hypothyroidism
-Continue home meds (levothyroxine)
Essential Hypertension
-Continue home meds (diltiazem, hydralazine, valsartan)
Hyperlipidemia
-HOLD home meds (Simvastatin)
Anticipated Discharge: Within 24 hours
Subjective/Interval History
-
Date of Service: April 17, 2025
Patient was vomiting when I arrived. She states that she ate something at breakfast that caused her to vomit, and otherwise feels well. She only had the one episode while I was in the room with her and denied any abdominal pain or nausea. She states
she is feeling much better, though still is somewhat confused about the circumstances that brought her to the hospital. She was able to say that she was living in an retirement facility prior to her admission, but they were speaking about
sending her back home as her strength had greatly improved while there. She does not feel like she needs to return to a retirement facility, and would prefer to go home when she is found to be clinically stable.
Objective Data
-
Labs:
Laboratory Results
04/17/25
05:21
WBC 6.9
Hgb 7.1 L
Hct 21.6 L
Plt Count 209
Sodium 131 L
Potassium 4.4
Chloride 106
Carbon Dioxide 21 L
BUN 11
Creatinine 0.8
Glucose 93
Calcium 8.3 L
Vital Signs:
Vital Signs
Temp Pulse Resp BP Pulse Ox
97.4 F 84 18 125/47 99
04/17/25 03:43 04/17/25 03:43 04/17/25 03:43 04/17/25 03:43 04/17/25 03:43
I&O
04/16/25 04/17/25 04/18/25
06:59 06:59 06:59
Intake Total 1220 / 1310 1290 / 1290
Output Total 1250 / 1250 1550 / 1550
Balance -30 / 60 -260 / -260
Review of Systems
-
History Source: Patient
Constitutional: Denies Fever, Fatigue, Chills or Weakness
Respiratory: Denies Trouble Breathing or Wheezing
Cardiac: Denies Chest Pain
Abdomen/GI: Reports Vomiting; Denies Abdominal Pain, Nausea, Diarrhea or Constipated
Musculoskeletal: Denies Joint Pain or Muscle Pain
Neuro: Denies Dizzy, Headache, Weakness, Numbness or Ataxia
Physical Exam
-
General: Well Developed and Well Nourished
HEENT: Normocephalic and Atraumatic
Respiratory: Clear to Auscultation
Cardiac: Regular Rhythm and S1/S2
GI: Other (Vomited yellow bile with undigested food (possibly fruit) while I was in the room. No blood present. No gagging or dry heaving after vomiting had subsided)
Skin: Warm and Dry
Neuro: Awake, Alert and Oriented (Patient now oriented to self, location, and time. This is an improvement from yesterday when she was not able to identify the year correctly.)
Psych: Calm
--- NOTE | 2025-04-17 07:33 | W.PN.NEURO.1 ---
Today's Communication / Plan
-
� can start aspirin 81 mg daily
� LDL<70, continue Simvastatin 20 mg at bedtime as outpatient, while in hospital, use Atorvastatin 40 mg
Neuro Assessment/Plan
Assessment
85-year-old female with a past medical history of hypertension, GERD, uterine cancer status post chemoradiation who presents to the [facility] on 04/15/2025 from long term facility for evaluation of abrupt onset of aphasia.
Head CT 04/15/2025: No acute intracranial abnormality noted.
Brain CT 04/15/2025: No region of hypoperfusion or infarct.
Head and neck CTA 04/15/2025:
Bilateral carotid bulb/ICA moderate calcified plaque. Estimated luminal diameter reduction on the right of 50%. Estimated luminal diameter reduction on the left of less than 50%. No occlusion or dissection.
Bilateral cavernous ICA calcified plaque formation. Estimated luminal diameter reduction of the right cavernous ICA of approximately 50%. Estimated luminal diameter reduction of the left cavernous ICA of 50-60%. No stony [place] of [place] region aneurysm
or occlusion.
No cerebral artery significant plaque, stenosis, thrombus, or occlusion.
The left vertebral artery is dominant. The right vertebral artery terminates as the posterior inferior cerebellar artery, a normal developmental variant.
Mild distention of the esophagus with fluid and air-fluid level. Recommend correlation to assess for the possibility of esophageal dysmotility or reflux.
EEG 04/15/2025: no seizures reported
Brain MRI 03/22/2025:
1. Moderate bilateral frontal and parietal lobe volume loss.
2. Minimal periventricular white matter leukoaraiosis.
3. Small 4.4 mm enhancing lesion in the right cerebellar hemisphere (probably extra-axial in location). Diagnostic possibilities are (1) a small leptomeningeal metastasis, (2) a small vascular malformation, (3) mild inflammatory or infectious
disease or (4) less likely a subacute ischemic infarct.
4. Severe right-sided facet joint arthrosis at C4/C5.
MRI brain 04/16/2025: No acute abnormality
Labs from 03/22/2025: Cholesterol 126, LDL 49, B12 781, TSH 3.26
CSF from LP on 03/23/2025 unrevealing except protein elevated at 93
Impressions:
I. Abrupt onset of aphasia most likely due to TIA, differential diagnosis includes seizure although this is less likely, or exposure to buprenorphine
Plan
� can start aspirin 81 mg daily
� LDL<70, continue Simvastatin 20 mg at bedtime as outpatient, while in hospital, use Atorvastatin 40 mg
� DVT prophylaxis
� medical educational materials will be provided
� Neurochecks and NIHSS per unit guidelines
Will follow as outpatient
Subjective/Objective
Subjective Data
Date of Service: April 17, 2025
Objective Data
Vital Signs
Temp Pulse Resp BP Pulse Ox
36.3 C 84 18 125/47 99
04/17/25 03:43 04/17/25 03:43 04/17/25 03:43 04/17/25 03:43 04/17/25 03:43
Lab Results
04/17/25 05:21
04/17/25 05:21
PT 14.0 Sec (11.4-14.6) 04/15/25 14:00
INR 1.05 04/15/25 14:00
APTT 41.0 Sec (23.4-35.0) H 04/15/25 14:00
Sodium 131 mmol/L (135-145) L 04/17/25 05:21
Potassium 4.4 mmol/L (3.5-5.1) 04/17/25 05:21
BUN 11 mg/dl (7-17) 04/17/25 05:21
Glucose 93 mg/dl (70-99) 04/17/25 05:21
Calcium 8.3 mg/dl (8.4-10.2) L 04/17/25 05:21
Phosphorus 4.3 mg/dl (2.5-4.5) 04/16/25 04:27
LDL Cholesterol, Calc Cancelled 04/16/25 13:38
Patient Allergies
No Known Allergies Allergy (Verified 04/15/25 13:57)
Data Reviewed
-
MRI Head: Report Reviewed
Labs: Report Reviewed
Lipid Profile: Report Reviewed
Reviewed with: Nurse Practioner
Old Records: Summarized
Past History
Past History
ED Past Medical History: Cancer (breast, uterine), GERD, HTN, Hypercholesterolemia, Hypothyroidism and Other (gout, iron deficiency, mild pulm HTN, episode of aphasia requiring use of tenecteplase)
ED Past Surgical History: Cholecystectomy and Orthopedic (Rotator cuff repair left)
Social History
Tobacco: Non-smoker
Alcohol: None
Personal:
Living: with family
Employment: Retired
Family History
Family History: Other (Reviewed and noncontributory)
Medications
-
Medications:
Generic Name Dose Route Start Last Admin
Trade Name Freq PRN Reason Stop Dose Admin
Acetaminophen 650 mg 04/15/25 16:58
Acetaminophen 325 Mg Tablet PO 05/13/25 16:57
Q4HPRN PRN
PEÑA, mild pain, or temp >100.4F
Atorvastatin Calcium 40 mg 04/16/25 18:00 04/16/25 17:39
Atorvastatin (Lipitor) 40 Mg Tablet PO 05/14/25 17:59 40 mg
QPM MAHNAZ Administration
Bisacodyl 10 mg 04/15/25 16:58
Bisacodyl 10 Mg Rectal Suppository RECTAL 05/13/25 16:57
O40ELAX PRN
constipation
Buprenorphine 1 patch 04/16/25 16:00 04/16/25 16:20
Buprenorphine 20 Mcg/Hr Patch *Patient Own* TRANSDERM 04/30/25 15:59 1 patch
TU@1600 MAHNAZ Administration
Calcium Carbonate 200 mg 04/15/25 16:58
Calcium Antacid 200 Mg (Calcium Carbonate 500 Mg) Chew Tablet PO 05/13/25 16:57
DAILYPRN PRN
heart burn
Diltiazem HCl 240 mg 04/16/25 08:00 04/16/25 08:12
Diltiazem 240 Mg Extended Release (24 H) Capsule PO 05/14/25 07:59 240 mg
DAILY MAHNAZ Administration
Duloxetine HCl 30 mg 04/16/25 08:00 04/16/25 08:12
Duloxetine Delayed Release 30 Mg Capsule PO 05/14/25 07:59 30 mg
DAILY MAHNZA Administration
Estradiol 0 applic 04/16/25 08:00 04/16/25 08:12
Estradiol 0.01% (Vaginal Cream) 42.5 Gram Tube VAG 05/14/25 07:59 1 applic
DAILY MAHNAZ Administration
Heparin Sodium (Porcine) 500 unit 04/16/25 09:15
Heparin Flush Pf (100 Unit/Ml) 5 Ml Syringe IV 05/14/25 09:14
PER PROTOCOL MAHNAZ
Hydralazine HCl 25 mg 04/15/25 20:00 04/16/25 19:16
Hydralazine 25 Mg Tablet PO 05/13/25 19:59 25 mg
BID MAHNAZ Administration
Sodium Chloride 1,000 mls @ 90 mls/hr 04/15/25 16:58 04/16/25 21:56
Nss IV 1,000 mls
.Q11H7M MAHNAZ Administration
Labetalol HCl 10 mg 04/15/25 17:22
Labetalol Hcl 5 Mg/1 Ml (20 Mg/4 Ml) Injection IV 05/13/25 17:21
Q6HPRN PRN
SBP > 180
Latanoprost 0 drop 04/15/25 22:00 04/16/25 21:10
Latanoprost 0.005% (Ophthalmic Solution) 2.5 Ml Bottle BOTH EYES 05/13/25 21:59 1 drop
HS MAHNAZ Administration
Levothyroxine Sodium 25 mcg 04/16/25 06:00 04/17/25 05:39
Levothyroxine 25 Mcg Tablet PO 05/14/25 05:59 25 mcg
DAILY@0600 MAHNAZ Administration
Pantoprazole Sodium 40 mg 04/16/25 08:00 04/16/25 08:12
Pantoprazole 40 Mg Delayed Release Tablet PO 05/14/25 07:59 40 mg
DAILY MAHNAZ Administration
Patch Removal 0 patch 04/23/25 16:00
Remove Pt Own Butrans Patch REMOVE 05/07/25 15:59
Q7D MAHNAZ
Polyethylene Glycol 17 grams 04/15/25 16:58
Polyethylene Glycol Powder 17 Grams Packet PO 05/13/25 16:57
DAILYPRN PRN
constipation
Potassium Chloride 20 meq 04/16/25 08:00 04/16/25 08:12
Potassium Chloride 20 Meq Extended Release Tablet PO 05/14/25 07:59 20 meq
DAILY MAHNAZ Administration
Senna/Docusate Sodium 1 tablet 04/15/25 16:58
Docusate W/Senna (Myesha-Colace) Tablet PO 05/13/25 16:57
BIDPRN PRN
constipation
Sodium Chloride 0 flush 04/15/25 18:00
Sodium Chloride 0.9% (Flush) Syringe IV 05/13/25 17:59
PER PROTOCOL MANHAZ
Spironolactone 25 mg 04/16/25 08:00 04/16/25 08:12
Spironolactone 25 Mg Tablet PO 05/14/25 07:59 25 mg
DAILY MAHNAZ Administration
Valsartan 320 mg 04/16/25 08:00 04/16/25 08:11
Valsartan 160 Mg Tablet PO 05/14/25 07:59 320 mg
DAILY MAHNAZ Administration
[2025-04-17] MEDS: APRESOLINE 25 MG PO ×2 (08:06→21:00)
[2025-04-17] MEDS: KCL 20 MEQ PO (08:06)
[2025-04-17] MEDS: DIOVAN 320 MG PO (08:06)
[2025-04-17] MEDS: PROTONIX 40 MG PO (08:07)
[2025-04-17] MEDS: CARDIZEM CD 240 MG PO (08:07)
[2025-04-17] MEDS: CYMBALTA DELAYED RELEASE 30 MG PO (08:07)
[2025-04-17] MEDS: ALDACTONE 25 MG PO (08:07)
[2025-04-17] MEDS: ESTRACE 0.01% VAGINAL CREAM 1 APPLIC VAG (08:07)
[2025-04-17] MEDS: ASPIR LOW (ENTERIC COATED) 81 MG PO (08:09)
[2025-04-17] MEDS: NSS 1000 IV (09:16)
[2025-04-17 10:06] LABS: Reticulocyte Count 1.7 % (0.4-2.8)
[2025-04-17 10:17] LABS: Iron 46 ug/dl (37-170)
[2025-04-17 10:27] LABS: Total Iron Binding Capacity 192 ug/dl (265-497)
--- NOTE | 2025-04-17 14:23 | PN.CDI ---
CDI
- -
CDI:
Physician Documentation Request
Admit Date: 04/15/25 16:31
Dear Doctor Tatiana,
Clinical Indicators:
Patient admitted with suspected CVA.
7/ Magnesium 2 gm IV rider x 1.
Magnesium level:
04/16/25
04:27
Magnesium 1.1 L
Based on the above, could you clarify in the progress notes, the appropriate diagnosis, if significant, that supports the above abnormalities and additional evaluation, monitoring and/or treatment rendered:
Hypomagnesemia, resolved
Abnormal lab value, clinically insignificant
Other
Use of terms such as suspected, likely, concern for, or probable (associated with a specific diagnosis that is being evaluated, monitored, or treated as if it exists) are acceptable and can be coded in the inpatient setting, when documented at the
time of discharge.
Thank you,
LOY Posey RN
CDI Specialist
available via tiger text
Please use your independent medical judgment in providing your response.
[2025-04-17 14:26] LABS: Ferritin 257.0 ng/ml (11.1-264.0)
[2025-04-17 14:57] LABS: Folate 16.9 ng/ml (2.76-20); Vitamin B12 871 pg/ml (239-931)
[2025-04-17] MEDS: LIPITOR 40 MG PO (17:28)
[2025-04-17] MEDS: XALATAN OPHTHALMIC SOLUTION 1 DROP BOTH EYES (21:00)
[2025-04-17] MEDS: HEPARIN 5000 UNITS SC (21:00)
[2025-04-18 03:45] VITALS: BP 138/50
[2025-04-18 03:53] LABS: Hematocrit 21.3 % (37.0-47.0); Hemoglobin 7.1 g/dL (12.0-16.0); Mean Corp Hgb Conc. 33.3 g/dL (33.0-37.0); Mean Corpuscular Volume 96.8 fL (81.0-99.0); Platelet Count 207 10^3/uL (130-400); Red Cell Dist. Width 17.3 % (11.5-14.5)
[2025-04-18 04:20] LABS: Blood Urea Nitrogen 11 mg/dl (7-17); Calcium 8.6 mg/dl (8.4-10.2); Carbon Dioxide 23 mmol/L (22-30); Chloride 104 mmol/L (98-107); Estimated Creatinine Clearance 43 ml/min; Glucose 111 mg/dl (70-99); Potassium 4.7 mmol/L (3.5-5.1); Sodium 131 mmol/L (135-145); eGFR > 60.00
[2025-04-18] MEDS: SYNTHROID 25 MCG PO (05:59)
--- NOTE | 2025-04-18 07:04 | W.PN.HOSP.TC ---
Today's Communication/Plan
-
Possible discharge today pending acute rehab acceptance
Assessment / Plan
Assessment / Plan
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
DD: CVA, Brain mets/vasogenic edema, Chronic catheter- related UTI, Seizure disorder.
-CT Brain did not show any region of hypo perfusion or infarct.
-CTA Head/Neck did not show any acute occlusions or dissections
-MRI of the brain showed no acute intracranial abnormalities, though there was a decreased signal in the right cerebellar hemisphere which could represent infarct, metastasis or inflammation/infection.
-Status post TNK in the ED on 04/15/2025
-Patient's expressive aphasia has improved significantly since her admission and is likely the result of a TIA given her improvement
-Continue as needed labetalol for BP goal of <180/105
-Will discuss outpatient vs inpatient echo and outpatient link device to try to determine if her aborted stroke was cardiogenic in origin
-Continue PT/OT follow up
-Discussed the results of her MRI. Patient can follow up with an MRI with contrast outpatient if she desires (Patient is 85)
-Discussed patient's care with her brother per her request.
-Will monitor BMP, CBC and temperature
Gastroesophageal Reflux Disease
-Continue home meds (Tums, omeprazole)
Metastatic Uterine Cancer/Endometrial Cancer
-MRI changes in right cerebellar hemisphere might represent metastasis
-Encouraged patient to follow up with PCP and oncologist to discuss if she would like to get an MRI of her brain w/ w/o contrast in the outpatient setting
Hypothyroidism
-Continue home meds (levothyroxine)
Hyperlipidemia
-HOLD home meds (Simvastatin)
Anemia (Iron deficiency and Anemia of Chronic Disease)
-Hemoglobin 8.6 and Hematocrit 25.3 on admission.
-Patient previously documented with both Iron deficiency and anemia of chronic disease. Current anemia appears chronic and multifactorial between the two.
-Will monitor CBC
Hypovolemic Hyponatremia
-On admission, sodium 126, Urine Osmolality 119, Urine sodium 22, Serum Chloride 97
-Sodium today: 131, unchanged
-History of poor oral intake recently
-Will monitor BMP
Essential Hypertension
-Continue home meds (diltiazem, hydralazine, valsartan)
Vomiting - RESOLVED
-No episodes sine 04/17/2025
-Will hold off on IV fluids unless patient resumes vomiting
Hypomagnesemia - RESOLED
-Magnesium: 1.1 on 04/16/2025, 1.6 later that day
Anticipated Discharge: Within 24 hours
Subjective/Interval History
-
Date of Service: April 18, 2025
Patient was doing well today and without any concerns. She only had the one episode of vomiting yesterday with no nausea or other episodes since. She says she is doing much better. We discussed the results of her MRI and I encouraged her to follow
up with her PCP for an MRI with contrast if she would like to persue further imaging. She did ask me to update her brother as to her case, and provided me his phone number. I attempted to contact him at 8:55AM, but did not receive an answer. I was
able to reach him at 9:55AM, and updated him on how she was doing. He reported a family history of thromboembolic strokes in their mother, and that he also has a 70% occlusion of his carotid arteries. This is apparently something he has been
encouraging her to check up on for some time now but she has not yet had a carotid ultrasound outpatient.
Objective Data
-
Labs:
Laboratory Results
04/18/25
03:30
WBC 6.3
Hgb 7.1 L
Hct 21.3 L
Plt Count 207
Sodium 131 L
Potassium 4.7
Chloride 104
Carbon Dioxide 23
BUN 11
Creatinine 0.8
Glucose 111 H
Calcium 8.6
Vital Signs:
Vital Signs
Temp Pulse Resp BP Pulse Ox
98.1 F 79 20 138/50 98
04/18/25 03:45 04/18/25 03:45 04/18/25 03:45 04/18/25 03:45 04/18/25 03:45
I&O
04/17/25 04/18/25 04/19/25
06:59 06:59 06:59
Intake Total 1290 / 1290 480 / 480
Output Total 1550 / 1550 750 / 750
Balance -260 / -260 -270 / -270
Review of Systems
-
History Source: Patient
Constitutional: Denies Fever, No Appetite, Fatigue, Chills or Weakness
Respiratory: Reports No Symptoms
Cardiac: Reports No Symptoms
Abdomen/GI: Denies Abdominal Pain, Nausea, Vomiting or Diarrhea
Neuro: Denies Dizzy, Headache, Weakness, Numbness, Ataxia or Lightheadedness
Physical Exam
-
General: Well Developed, Well Nourished, No Apparent Distress and Comfortable
HEENT: Normocephalic and Atraumatic
Respiratory: Clear to Auscultation
Cardiac: Regular Rhythm and S1/S2
Skin: Warm and Dry
Neuro: Awake, Alert and AO x 3
Psych: Calm
[2025-04-18 07:35] VITALS: BP 149/59
[2025-04-18] MEDS: CARDIZEM CD 240 MG PO (08:47)
[2025-04-18] MEDS: KCL 20 MEQ PO (08:48)
[2025-04-18] MEDS: DIOVAN 320 MG PO (08:48)
[2025-04-18] MEDS: PROTONIX 40 MG PO (08:49)
[2025-04-18] MEDS: ASPIR LOW (ENTERIC COATED) 81 MG PO (08:49)
[2025-04-18] MEDS: ESTRACE 0.01% VAGINAL CREAM 1 APPLIC VAG (08:50)
[2025-04-18] MEDS: ALDACTONE 25 MG PO (08:50)
[2025-04-18] MEDS: HEPARIN 5000 UNITS SC (08:50)
[2025-04-18] MEDS: APRESOLINE 25 MG PO (08:50)
[2025-04-18] MEDS: CYMBALTA DELAYED RELEASE 30 MG PO (08:50)
[2025-04-18 09:37] VITALS: BP 148/58; PULSE 81; O2SAT 97
--- NOTE | 2025-04-18 10:24 | CM ---
Addendum entered by Jossy Mesa 04/18/25 12:41:
Called [employer] to initiate auth, spoke w/ uL.
Auth approved beginning today, 04/18 next review date is 04/22
Auth ref number [id number]
Updated patient and [facility] admissions at bedside. Patient stated her will be arriving soon and he will transport her to SNF
Updated hospitalist, will work on d/c
IMM verbally reviewed, copy provided, copy on chart
[facility]
Report: [phone]

Plan: D/c today to [facility]
Original Note:
Patient stable for d/c today. Patient admitted from [facility] where she was there for STR.
Therapy rec for patient to resume rehab at d/c
Patient confirmed she would like to return to [facility], referral placed in [facility]
Spoke w/ Radha/[facility] admissions, confirmed bed availability for patient to return today
Will need insurance auth
Updated hospitalist
Plan: [facility] once auth is obtained
[2025-04-18 11:25] VITALS: BP 140/49
[2025-04-18 14:37] VITALS: BP 137/55
[2025-04-18] MEDS: TUMS CHEWABLE TABLET 200 MG PO (15:36)
--- NOTE | 2025-04-18 19:42 | W.DCSUMMARY ---
Documented by User: Kristin Simpson DO, Resident 04/19/25 07:45
Discharge Summary
Discharge Data
Date of Admission: 04/15/25
Date of Discharge: 04/18/25
-
Pending Results: No
Hospital Course
This is an 85 y/o female with pmhx of gastroesophageal reflux disease, hypothyroidism, essential hypertension and endometrial cancer with METS s/p chemoradiation (Recently completed) who presented to the ED on 04/15/2025 with altered mental
status/expressive aphasia that began at around 11AM that same morning following the removal of her catheter at 9AM. She had previously been admitted to this hospital from 03/23-03/27 for altered mental status due to catheter associated UTI.
In the ED she continued to experience waxing and waning expressive aphasia with difficulty with following directions. She received TNK. CT Brain did not show any region of hypo perfusion or infarct. CTA Head/Neck did not show any acute abnormalities
such as occlusion or dissection. Her labs on admission revealed sodium 126, Urine Osmolality 119, Urine sodium 22, and Serum Chloride 97. Neurology was consulted. She was given maintenance fluids and admitted to the ICU. The following day she was
significantly improved and no longer suffering from expressive aphasia. Her sodium value had increased to 131, where it remained for the remainder of her hospitalization. An MRI without contrast of her brain showed changes in right cerebellar
hemisphere might represent infection, inflammation, ischemia or metastasis but could not be visualized well due to lack of contrast. Patient continued to improve until she was found to be clinically stable and ready for discharge on 04/18/2025. She
was discharged an a SNF and encouraged to follow up with her PCP and oncologist 1-2 weeks following discharge, and to have repeat blood testing within 5 days of discharge..
Discharge Plan
-
Patient Disposition: Shelter/SNF
Discharge Diagnosis/Procedures: Acute CVA s/p TNK
Expressive aphasia
Acute on chronic anemia/AOCD
Stage IV endometrial cancer on XRT
Chronic Mccabe catheter
Chronic hyponatremia
Condition: Fair
Diet: No restrictions
Activity: As tolerated
Driving Restrictions: Not until seen by your Dr
Bathing Restrictions: None
Blood Work: BMP and CBC in 5 days after discharge from hospital
Others Tests: MRI brain with and without contrast as OP with oncology or PCP
Other Services: PT and OT
Activity Restrictions/Additional Instructions:
Patient should have follow-up appointment with her PCP and oncologist within 1 to 2 weeks of discharge from hospital
Referrals:
Anshu Xie MD [Family Provider]
Additional Discharge Medication Instructions: Start aspirin 81 mg daily and atorvastatin 40 mg nightly
Stop taking simvastatin
Prescriptions:
New
aspirin 81 mg Tablet,Delayed Release (Dr/Ec)
81 mg PO DAILY 30 Days Qty: 30 0RF
atorvastatin 40 mg Tablet
40 mg PO QPM 30 Days Qty: 30 0RF
Continued
cholecalciferol (vitamin D3) 1,000 UNITS tablet
1,000 mcg PO DAILY
coQ10 (ubiquinol) 100 MG capsule
300 mg PO DAILY
levothyroxine 25 mcg Tablet
25 mcg PO DAILY
magnesium 200 mg Tablet
400 mg PO DAILY
Milltrium Senior Tablet
1 tab PO DAILY
hydralazine 25 MG tablet
25 mg PO BID Qty: 0 0RF
Rx Instructions:
HOLD IF systolic blood pressure <130 while on Oxycodone.
omeprazole 40 mg Capsule,Delayed Release(Dr/Ec)
40 mg PO DAILY Qty: 0 0RF
Rx Instructions:
Take daily while on Meloxicam and full dose Aspirin to prevent GI upset.
diltiazem HCl 240 mg Capsule,Extended Release 24 Hr
240 mg PO DAILY
duloxetine 30 mg Capsule, Delayed Rel Sprinkle
30 mg PO DAILY
estradiol [Estrace] 0.01 % (0.1 mg/gram) Cream
1 g VAGINAL DAILY
acetaminophen 325 mg Tablet
650 mg PO Q4HPRN PRN (Reason: PEÑA, mild pain, or temp >100.4F) Qty: 0 0RF
latanoprost 0.005 % Drops
1 drp BOTH EYES HS
spironolactone 25 mg Tablet
25 mg PO DAILY
methenamine hippurate 1 gram Tablet
1 g PO BID
valsartan 320 mg Tablet
320 mg PO DAILY
calcium carbonate [Tums] 200 mg calcium (500 mg) Tablet,Chewable
200 mg PO DAILYPRN PRN (Reason: heart burn)
buprenorphine 20 mcg/hour Patch Weekly
1 patch TRANSDERMAL KYLE@1830
potassium chloride 20 mEq Tablet Extended Release
20 meq PO DAILY
Discontinued
simvastatin 20 MG tablet
20 mg PO HS
Discharge Orders:
Discharge Patient (As Directed); Ordered 04/18/25
Ordered By: Aris Rae
Discharge Date and Time
Discharge Date/Time: 04/18/25 16:15
Print Language: VIETNAMESE

Documented by User: Aris Rae DO 04/19/25 12:25
Discharge Summary
Discharge Data
Date of Admission: 04/15/25
Date of Discharge: 04/18/25
Total time spent discharging patient (in min): 32
Discharge Plan
-
Patient Disposition: Shelter/SNF
Discharge Diagnosis/Procedures: Acute CVA s/p TNK
Expressive aphasia
Acute on chronic anemia/AOCD
Stage IV endometrial cancer on XRT
Chronic Mccabe catheter
Chronic hyponatremia
Condition: Fair
Diet: No restrictions
Activity: As tolerated
Driving Restrictions: Not until seen by your Dr
Bathing Restrictions: None
Blood Work: BMP and CBC in 5 days after discharge from hospital
Others Tests: MRI brain with and without contrast as OP with oncology or PCP
Other Services: PT and OT
Activity Restrictions/Additional Instructions:
Patient should have follow-up appointment with her PCP and oncologist within 1 to 2 weeks of discharge from hospital
Referrals:
Anshu Xie MD [Family Provider]
Additional Discharge Medication Instructions: Start aspirin 81 mg daily and atorvastatin 40 mg nightly
Stop taking simvastatin
Prescriptions:
New
aspirin 81 mg Tablet,Delayed Release (Dr/Ec)
81 mg PO DAILY 30 Days Qty: 30 0RF
atorvastatin 40 mg Tablet
40 mg PO QPM 30 Days Qty: 30 0RF
Continued
cholecalciferol (vitamin D3) 1,000 UNITS tablet
1,000 mcg PO DAILY
coQ10 (ubiquinol) 100 MG capsule
300 mg PO DAILY
levothyroxine 25 mcg Tablet
25 mcg PO DAILY
magnesium 200 mg Tablet
400 mg PO DAILY
Milltrium Senior Tablet
1 tab PO DAILY
hydralazine 25 MG tablet
25 mg PO BID Qty: 0 0RF
Rx Instructions:
HOLD IF systolic blood pressure <130 while on Oxycodone.
omeprazole 40 mg Capsule,Delayed Release(Dr/Ec)
40 mg PO DAILY Qty: 0 0RF
Rx Instructions:
Take daily while on Meloxicam and full dose Aspirin to prevent GI upset.
diltiazem HCl 240 mg Capsule,Extended Release 24 Hr
240 mg PO DAILY
duloxetine 30 mg Capsule, Delayed Rel Sprinkle
30 mg PO DAILY
estradiol [Estrace] 0.01 % (0.1 mg/gram) Cream
1 g VAGINAL DAILY
acetaminophen 325 mg Tablet
650 mg PO Q4HPRN PRN (Reason: PEÑA, mild pain, or temp >100.4F) Qty: 0 0RF
latanoprost 0.005 % Drops
1 drp BOTH EYES HS
spironolactone 25 mg Tablet
25 mg PO DAILY
methenamine hippurate 1 gram Tablet
1 g PO BID
valsartan 320 mg Tablet
320 mg PO DAILY
calcium carbonate [Tums] 200 mg calcium (500 mg) Tablet,Chewable
200 mg PO DAILYPRN PRN (Reason: heart burn)
buprenorphine 20 mcg/hour Patch Weekly
1 patch TRANSDERMAL KYLE@1830
potassium chloride 20 mEq Tablet Extended Release
20 meq PO DAILY
Discontinued
simvastatin 20 MG tablet
20 mg PO HS
Discharge Orders:
Discharge Patient (As Directed); Ordered 04/18/25
Ordered By: Aris Rae
Discharge Date and Time
Discharge Date/Time: 04/18/25 16:15
Print Language: VIETNAMESE
== END 2025-04-18 16:15 | DRG 62 ==
LOC: 4 WEST ACU 16:31
PROVIDERS: ADMITTING PHYSICIAN Internal Medicine; CONSULT PHYSICIAN Internal Medicine Critical Care Medicine; CONSULT PHYSICIAN Psychiatry & Neurology Neurology; EMERGENCY PHYSICIAN Emergency Medicine; FAMILY PHYSICIAN Family Medicine
PROC: 3E03317 Introduction of Other Thrombolytic into Peripheral Vein, Percutaneous Approach (ICD-10-PCS; 2025-04-15)
DX: I63.9 Cerebral infarction, unspecified (principal); E87.1 Hypo-osmolality and hyponatremia; E86.1 Hypovolemia; K21.9 Gastro-esophageal reflux disease without esophagitis; E03.9 Hypothyroidism, unspecified; I10 Essential (primary) hypertension; E83.42 Hypomagnesemia; D63.8 Anemia in other chronic diseases classified elsewhere; D50.9 Iron deficiency anemia, unspecified; C54.1 Malignant neoplasm of endometrium; R29.707 NIHSS score 7
CPT/HCPCS: 0042T; 70450; 70496; 70498; 70551; 71045; 80048; 80053; 80061; 81003; 82570; 82607; 82728; 82746; 82962; 83540; 83550; 83735; 83935; 84100; 84156; 84300; 84443; 84484; 85014; 85018; 85025; 85027; 85045; 85610; 85730; 93005; 95813; 97110; 97163; 97167; 99291; J3101; Q9967

== ENCOUNTER 2025-05-08 20:34 | Inpatient (IN) | payer OTHER, SELFPAY ==
[2025-05-08] VITALS (8 sets, daily range): BP systolic 111–137; BP diastolic 43–62
[2025-05-08 15:13] LABS: COVID-19 Antigen Positive (Negative)
[2025-05-08 15:29] LABS: Hematocrit 25.6 % (37.0-47.0); Hemoglobin 8.8 g/dL (12.0-16.0); Mean Corp Hgb Conc. 34.4 g/dL (33.0-37.0); Mean Corpuscular Volume 92.8 fL (81.0-99.0); Nucleated Red Blood Cells % 0 %; Platelet Count 297 10^3/uL (130-400); Red Cell Dist. Width 16.7 % (11.5-14.5)
[2025-05-08 15:47] LABS: ALT (SGPT) 18 U/L (0-35); AST (SGOT) 18 U/L (14-36); Albumin 3.3 g/dl (3.5-5.0); Alkaline Phosphatase 107 U/L (38-126); Blood Urea Nitrogen 66 mg/dl (7-17); Calcium 8.9 mg/dl (8.4-10.2); Carbon Dioxide 21 mmol/L (22-30); Chloride 104 mmol/L (98-107); Glucose 100 mg/dl (70-99); Potassium 5.4 mmol/L (3.5-5.1); Sodium 135 mmol/L (135-145); Total Protein 6.1 g/dl (6.3-8.2); eGFR 21.57
--- NOTE | 2025-05-08 16:58 | ED.GENMED ---
History of Present Illness
General
Chief Complaint: Change in Mental Status
Source: patient
Exam Limitations: none
Time Seen by Provider: 05/08/25 16:13
Nursing documentation reviewed up to this point in time: agreed with
History of Present Illness
History of Present Illness:
85 yr old female with past medical history of reflux hypothyroidism hypertension stage IV endometrial cancer with mets status post chemo UTI, hyponatremia recent stroke with TNK who presents from EMS from [facility] for change of mental status.
Nurse reports pt is being treated for COVID on Paxlovid (started 05/03) and has been nauseus and not eating. Nurse reports pt has been hallucinating since this morning .
Son at bedside reports he reports patient is definitely more confused over the past several days and weaker than normal.
Past History
Past History
ED Past Medical History: Cancer (breast, uterine), GERD, HTN, Hypercholesterolemia, Hypothyroidism and Other (gout, iron deficiency, mild pulm HTN, episode of aphasia requiring use of tenecteplase)
ED Past Surgical History: Cholecystectomy and Orthopedic (Rotator cuff repair left)
Social History
Tobacco: Non-smoker
Alcohol: None
Personal:
Living: with family
Employment: Retired
Family History
Family History: Other (Reviewed and noncontributory)
Phy Exam
General Physical Exam
General Presentation: no apparent distress
General age: appears stated age and appears older than age
General Skin: warm and dry
General Habitus: elderly
General Mental: alert
General Hydration: dry mucous membranes
Eye Exam
Eye Exam: PERRL
Eye Exam General: PERRL: bilateral and EOM intact: bilateral
Pupil Exam: Bilateral: round and reactive
Cardiovascular Exam
Cardiovascular Exam: regular rate/rhythm, no murmur and normal peripheral pulses
Pulmonary Exam
Pulmonary Exam: lungs clear and no respiratory distress
Gastrointestinal Exam
Gastrointestinal Exam: non tender and soft
Neurological Exam
Neurological Exam: alert and oriented x3
Musculoskeletal Exam
Musculoskeletal Exam: full ROM
Skin Exam
Skin Exam: normal color and warm/dry
Psychiatric Exam
Psychiatric Exam: normal mood/affect
Course
Orders/Labs/Results
Orders:
Orders
05/08/25 Breakfast
Regular
At Your Request: Full Participation
05/08/25 14:44
COVID-19 Antigen Urgent
Source: Nasal Swab
Complete Blood Count/With Diff Urgent
Comprehensive Metabolic Panel Urgent
INF RAPID [Influenza A+B Rapid Molecular] Urgent
PIYUSH Source: Nasal Swab
Specimen Description:
05/08/25 17:08
Straight cath- Treatment ONCE
05/08/25 17:20
Chest [CR Chest - 2 Views ] Urgent
Comment:
Reason For Exam: change in ms covid
05/08/25 17:44
UA Reflex to Culture [Urinalysis Reflex To Culture] Urgent
Date Specimen was Collected: 05/08/25
Time Specimen was Collected: 17:18
Urine Microscopic Reflex Cult Urgent
Urine Culture Urgent
PIYUSH Source: U
Specimen Description:
Date Specimen was Collected: 05/08/25
Time Specimen was Collected: 17:18
05/08/25 18:55
CefTRIAXone [Rocephin] 1,000 mg IV NOW STA
05/08/25 19:10
Ondansetron Injectable [Zofran] 4 mg .ROUTE .STK-MED ONE
05/08/25 19:11
Sterile Water [Sterile Water For Injection] 10 ml .ROUTE .STK-MED ONE
05/08/25 19:13
Ondansetron Injectable [Zofran] 4 mg IV NOW STA
05/08/25 19:14
0.9% Sodium Chloride 1000 ml [Nss] 1,000 ml IV BOLUS
05/08/25 20:12
CT Abd/pel Without Iv Or Oral Urgent
Comment:
Reason For Exam: KEON, Urinary Retention
05/08/25 20:15
Admit/Transfer Patient As Directed
Co-Sign Provider:
Level of Care: Inpatient admission
Assign to:: Telemetry
Physician / Group: Branden
Diagnosis: KEON, UTI
Reason for Telemetry: Arrhythmia
Date to Stop Telemetry: 05/11/25
Time to Stop Telemetry: 11:00
Reason for Hospitalization: KEON, UTI
Expected length of stay greater than two midnights?: Yes
ELOS- Estimated Length of Stay in days: 3
I certify the patient meets the requirements for IP care: Yes
PRN Pain Medication Management As Directed
May give lesser potent ordered pain med per pt: Yes
preference::
Protocol:: Medication orders for pain may be administered in a
manner that supports deferring to patient preference
when the pt is:
- Requesting an ordered lesser potent pain medication.
Least to most potent pain medications are defined
as: acetaminophen < NSAID < tramadol < opioids
(morphine, oxycodone, hydromorphone).
- Requesting a lesser dose of the same medication IF
ORDERED.
- Requesting a less intrusive route of administration
if both routes are prescribed by the provider (PO <
IV).
05/08/25 20:17
Code Status As Directed
Resuscitation Status: Full Code
05/08/25 21:07
0.9% Sodium Chloride 1000 ml [Nss] 1,000 ml IV 125 mls/hr
Acetaminophen [Tylenol] 650 mg PO Q4HPRN PRN
Albuterol [ProAIR HFA INHALER] 2 puff INH R Q4HPRN PRN
Ondansetron Injectable [Zofran] 4 mg IV Q6HPRN PRN
05/08/25 21:07
Activity As Directed
Activity Level: Ambulate
With Assistance
Bladder Scan As Directed
Follow Bladder Retention/Intermittent Cath Algorithm?: Yes
PRN if no void in __ hours: 6
Frequency: Per Retention Algorithm
If Bladder Scan Result >: 400
then:: Straight cath
Buprenorphine Patch Confirmation BID@0700,1900
EKG with chest pain [ECG as needed] As Directed
ECG as needed for:: Chest Pain
I/O [Intake/ Output] As Directed
Frequency: Per unit guidelines
Orthostatic Vital Signs As Directed
Orthostatic VS Frequency: BID
Pneumatic Compression Sleeves As Directed
Type: Knee high
Precautions As Directed
Type of Precautions: Droplet
Straight Cath As Directed
Frequency: Per Retention Algorithm
Additional Instructions: straight cath as needed per acute urinary retention algorithm for 24 hrs
Additional Instructions: for bladder scan greater than 400 mL
Vital Signs As Directed
Frequency: Per unit guidelines
Weight As Directed
Frequency: Daily
Oxygen Therapy [O2 Therapy] [RESP] Routine
Titrate/Wean O2 to maintain O2 sat greater than (%): 94
Ot Eval And Treat Routine
PT Consult [Pt Eval And Treat] Routine
Activity Level: Ambulate
With Assistance
Speech Therapy Eval & Treat Routine
DX Deep Vein Thrombosis Video Routine
05/08/25 22:00
Latanoprost [Xalatan Ophthalmic Solution] See Dose Instructions BOTH EYES HS
05/09/25 06:00
Basic Metabolic Panel IN AM
Complete Blood Count/No Diff IN AM
Levothyroxine [Synthroid] 25 mcg PO DAILY @ 0600
05/09/25 08:00
Aspirin Low Dose EC [Aspir Low (Enteric Coated)] 81 mg PO DAILY
Diltiazem Extended Release [Cardizem Cd] 240 mg PO DAILY
Famotidine [Pepcid] 20 mg PO Q48H
Guaifenesin [Mucinex] 600 mg PO Q12
HydrALAZINE [Apresoline] 25 mg PO BID
Pantoprazole [Protonix] 40 mg PO DAILY
05/09/25 18:00
Atorvastatin [Lipitor] 40 mg PO QPM
Enoxaparin Sodium [Lovenox] 40 mg SC QPM
Polyethylene Glycol Powder [Miralax] 17 grams PO QPM
05/11/25 11:00
DC Protocol for Telemetry ONCE
05/12/25 18:30
Pt Own Bupren Patch 20Mcg/Hr [Butrans 20 Mcg/Hr Patch Patient Own] 1 patch TRANSDERM KYLE@1830
Remove Pt Own Buprenorph Patch [Remove Pt Own Butrans Patch] See Dose Instructions REMOVE KYLE@1830
Abnormal Lab Results
05/08/25 05/08/25
14:44 17:44
WBC 12.8 H 10^3/uL
(4.8-10.8)
RBC 2.76 L 10^6/uL
(4.20-5.40)
Hgb 8.8 L g/dL
(12.0-16.0)
Hct 25.6 L %
(37.0-47.0)
MCH 31.9 H pg
(27.0-31.0)
RDW 16.7 H %
(11.5-14.5)
MPV 10.7 H fL
(7.4-10.4)
Abs Immat Gran (auto) 0.1 H 10^3/uL
(0-0.05)
Absolute Neuts (auto) 11.5 H 10^3/uL
(1.4-6.5)
Absolute Lymphs (auto) 0.3 L 10^3/uL
(1.2-3.4)
Absolute Monos (auto) 1.0 H 10^3/uL
(0.1-0.6)
Neutrophils % 89.9 H %
(42.2-75.2)
Lymphocytes % 2.0 L %
(20.5-51.1)
Potassium 5.4 H mmol/L
(3.5-5.1)
Carbon Dioxide 21 L mmol/L
(22-30)
BUN 66 H mg/dl
(7-17)
Creatinine 2.2 H mg/dL
(0.6-1.0)
Glucose 100 H mg/dl
(70-99)
Total Protein 6.1 L g/dl
(6.3-8.2)
Albumin 3.3 L g/dl
(3.5-5.0)
Ur Occult Blood Reflex 1+ A
(Negative)
Leukocyte Esterase Rfl 3+ A
(Negative)
Urine RBC 3-6 A /HPF
(0-2)
Urine WBC (Reflex) >100 A /HPF
(0-5)
Urine Bacteria (Reflex) Many A
(Negative)
Urine Albumin (Reflex) 3+ A
(Neg - Trace)
SARS-CoV-2 Antigen Positive A
(Negative)
05/08/25 14:44
05/08/25 14:44
Vital Signs
Initial and Last Documented VS:
Initial Vital Signs
Temp Pulse Resp Pulse Ox
98.1 F 76 22 96
05/08/25 14:37 05/08/25 14:37 05/08/25 14:37 05/08/25 14:37
Last Documented Vital Signs
Temp Pulse Resp BP Pulse Ox
98.1 F 63 14 134/47 97
05/08/25 14:37 05/08/25 20:15 05/08/25 20:15 05/08/25 20:00 05/08/25 20:15
MDM/Problems Addressed
Differential Diagnosis Includes:
Not limited to COVID infection, dehydration, UTI pneumonia
MDM/Problems Addressed:
As documented patient is 85-year-old female [facility] in mental status hallucinations. Patient completed 5 days of Paxlovid for recently diagnosed COVID. Patient is awake alert son at bedside reports patient has been very
confused patient is able to give some history. Incidentally patient is found to have a UTI with greater than 100 white blood cells and has renal insufficiency with a creatinine of 2.2 and a BUN of 66, fluids were ordered. Patient's hemoglobin is
8.8 which is baseline.
Patient will require fluids antibiotics
Chronic conditions affecting care:
Uterine cancer status post chemoradiation
*Radiology
Radiology exam reviewed: preliminary read by ED provider (huang )
*Pulse Oximetry
SaO2: 99
Oxygen Mode of Delivery: Room air
Patient hypoxic: no
*Critical Care Note
Total Time (30-74mins, 75-104mins- exclusive of procedures): Not Applicable
ED Attending Note
-
Portions of this chart may have been created with voice recognition software.� Occasional wrong word or��sound alike� substitutions may have occurred due to the inherent limitations of voice recognition software.
Discharge Plan
Departure
Patient Disposition: Admit
Date of Disposition: 05/08/25
Time of Disposition: 18:56
Admit to: Med/Surg
Admit to doctor: hospitalist
Presentation/result/management discussed w/ accepting MD/DO: Hospitalist
Patient with high blood pressure during this ER visit?: No
Condition: Fair
Covid-19: Confirmed COVID-19
Discharge Problem:
Acute UTI, COVID-19, Acute renal insufficiency
Interventions
Interventions:
*Risk Screen - Suicide Last Done: 05/08/25 22:40
*General Assessment Last Done: 05/08/25 14:40
*Neglect/Abuse Screening Last Done: 05/08/25 14:40
*ED- Fall Risk Assessment Last Done: 05/08/25 14:40
*ED COVID-19 Vaccine History Last Done: 05/08/25 22:26
*Nursing Disposition Last Done: 05/08/25 21:07
ED- Pulmonary Assessment Last Done: 05/08/25 14:41
ED-Psychological Assessment Last Done: 05/08/25 21:07
ED- Neurological Assessment Last Done: 05/08/25 14:41
ED- Cardiac Assessment Last Done: 05/08/25 14:41
Discharge Date and Time
Discharge Date/Time: 05/08/25 21:14
[2025-05-08 18:08] LABS: Urine Character Cloudy (Clear)
[2025-05-08 18:32] LABS: Urine Squamous Cell 0-2 /LPF (Few); Urine White Cell >100 /HPF (0-5)
[2025-05-08] MEDS: ROCEPHIN 1000 MG IV (19:13)
[2025-05-08] MEDS: ZOFRAN 4 MG IV (19:14)
[2025-05-08] MEDS: NSS 1000 IV ×2 (19:20→22:53)
--- NOTE | 2025-05-08 20:22 | HPS.HSE ---
Family Physician
-
Family Physician: Anshu Xie
Chief Complaint
-
Cough, Nausea, Confusion
History of Present Illness
Patient is an 85y F with PMH significant for stage IV endometrial cancer, hypertension, urinary retention and recent admissions for UTI and possible CVA / TIA who presents to ED from [facility] for evaluation of cough, nausea and confusion. History
obtained from patient, family at bedside, MD record and ED staff. Patient was most recently admitted 04/15 - 04/18 for aphasia / change in mental status which was attributed to CVA / TIA. She has been at [facility] rehab since that time. Son states that
she was treated for a UTI with Augmentin about one week ago. She had an indwelling Mccabe catheter for about 6 months. This was reportedly due to mechanical obstruction related to her endometrial cancer recurrence. Son states that she had multiple
urinary infections while the catheter was in. It was removed just prior to her most recent hospital stay and has remained out since that time. She is generally incontinent of urine due to weakness / inability to toilet without assistance.
Patient complains of nausea without vomiting - though MD records note that she has had episodes of vomiting since her admission there.
She complains of lower abdominal / suprapubic pain or pressure.
She reports constipation and poor PO intake.
In addition, patient has had cough for the past 6-7 days. She was diagnosed with COVID-19 at the [facility] and has completed 5 days of Paxlovid. She continues to have some cough.
With persistent complaints of cough and nausea - and seeming more confused than baseline per family - patient was sent to the ED for further evaluation.
Medical History
Past Medical History
Past Medical History: Reports Other
Additional Past Medical History:
Stage IV Endometrial Carcinoma - s/p initial surgery. Chemo / XRT after recurrence. On no active treatment at present.
ASCVD (CVA / TIA, Carotid Disease, Non-Obstructing CAD)
Hypertension
Hypothyroidism
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
Chronic Normocytic Anemia
GERD
History of Breast Cancer s/p Lumpectomy
Past Surgical History: Reports Other
Additional Past Surgical History:
Hysterectomy / BSO
Cholecystectomy
Left Rotator Cuff Care
Right TSA
Right Lumpectomy
R ACW Port Placement
Social History
Tobacco: Non-smoker
Alcohol: None
Drug: None
Family History
Family History: Not pertinent
Allergies / Home Medications
Allergies reflects when Allergies were last updated in [employer].
Home Medications with original date entered in [employer]
Allergy/Medication List:
Allergies
Allergy/AdvReac Type Severity Reaction Status Date / Time
No Known Allergies Allergy Verified 04/15/25 13:57
Home Medications
cholecalciferol (vitamin D3) 25 mcg (1,000 unit) tablet 1,000 mcg PO DAILY Supplement 06/02/21
coQ10 (ubiquinol) 100 mg capsule 300 mg PO DAILY Supplement 06/02/21
levothyroxine 25 mcg tablet 25 mcg PO DAILY Thyroid 08/25/23
magnesium 200 mg tablet 400 mg PO DAILY Electrolyte Repletion 08/25/23
qtyturutpfhw-tzqaiouf-gbeqbt tablet (Milltrium Senior tablet) 1 tab PO DAILY Supplement 08/25/23
hydralazine 25 mg tablet 25 mg PO BID #0 tabs 09/20/23
omeprazole 40 mg capsule,delayed release 40 mg PO DAILY #0 caps 09/20/23
diltiazem HCl 240 mg capsule,24 hr,extended release 240 mg PO DAILY Heart Disease/Condition 03/21/25
buprenorphine 20 mcg/hour weekly transdermal patch 1 patch transdermal KYLE@1830 Pain 04/15/25
calcium carbonate (Tums) 200 mg PO DAILYPRN PRN heart burn 04/15/25
latanoprost 0.005 % eye drops 1 drp BOTH EYES HS Eye Condition 04/15/25
methenamine hippurate 1 gram tablet 1 g PO BID Urinary Issue 04/15/25
potassium chloride 20 mEq tablet,extended release 20 meq PO DAILY Electrolyte Repletion 04/15/25
spironolactone 25 mg tablet 25 mg PO DAILY Blood Pressure 04/15/25
aspirin 81 mg tablet,delayed release 81 mg PO DAILY 1 month #30 tabs 04/18/25
atorvastatin 40 mg tablet 40 mg PO QPM 1 month #30 tabs 04/18/25
diltiazem HCl 120 mg capsule,extended release 12 hr 120 mg PO DAILY 05/08/25
famotidine 20 mg tablet 20 mg PO DAILY 05/08/25
guaifenesin 100 mg/5 mL oral liquid 200 mg PO Q6H PRN cough 05/08/25
ondansetron 4 mg disintegrating tablet 4 mg PO Q6H PRN Nausea 05/08/25
polyethylene glycol 3350 17 gram oral powder packet (Miralax) 17 g PO QPM 05/08/25
trazodone 50 mg tablet 25 mg PO BID 05/08/25
valsartan 160 mg tablet 160 mg PO DAILY 05/08/25
Review of Systems
-
History Source: Patient and Family
A 12 point ROS was completed and negative except as noted: Yes
Constitutional: Reports Fatigue; Denies Fever or Chills
EENT: Denies Sore Throat
Respiratory: Reports Cough; Denies Hemoptysis or Trouble Breathing
Cardiac: Denies Chest Pain or Palpitations
Abdomen/GI: Reports Abdominal Pain, Nausea and Constipated; Denies Vomiting, Diarrhea, Bloody Stools or Black Stools
: Reports Incontinence; Denies Dysuria or Flank Pain
Musculoskeletal: Denies Joint Pain or Edema
Neurological: Denies Dizzy or Headache
Physical Exam
Vital Signs
Vital Signs
Temp Pulse Resp BP Pulse Ox
98.1 F 78 20 129/44 98
05/08/25 14:37 05/08/25 17:45 05/08/25 17:54 05/08/25 17:00 05/08/25 17:45
Physical Exam
General: Other (85y F in no acute distress.)
HEENT: Other (Dry MM. Neck supple.)
Respiratory: Other (Bibasilar rales about 1/3 up. No wheeze / rhonchi.)
Cardiac: S1/S2 and Regular Rhythm; No Murmur
GI: Soft, Non Distended and Normal Bowel Sounds
Genito-urinary: Other (No CVAT. Mild suprapubic tenderness. )
Musculoskeletal: No Clubbing, No Cyanosis and No Edema
Neuro: Awake, Alert and Nonfocal/grossly intact
Laboratory Results
-
05/08/25 14:44
05/08/25 14:44
Laboratory Results
Total Bilirubin 0.8 mg/dl (0.2-1.3) 05/08/25 14:44
AST 18 U/L (14-36) 05/08/25 14:44
ALT 18 U/L (0-35) 05/08/25 14:44
Alkaline Phosphatase 107 U/L (38-126) 05/08/25 14:44
Impression/Plan
-
A/P: Patient is an 85y F with PMH significant for endometrial cancer, urinary retention and recent hospitalizations for UTI and CVA / TIA who presents to ED from SNF for evaluation of cough, nausea and confusion.
UTI
KEON
Hyperkalemia
- Admit for further evaluation and treatment.
- Check CT A/P now - high suspicion for urinary retention.
- Mccabe in x months and removed due to frequent infections - but nothing to suggest original obstructive process is corrected / addressed.
- May need to replace Mccabe.
- Empiric abx for now pending updated urine cultures.
- SCr = 2.2 compared to baseline of 0.8.
- Hold ARB, spironolactone, potassium supplementation, etc.
- IVF support.
- Follow for clinical improvement / return to baseline renal function / etc.
COVID-19 Infection
- Positive for COVID-19 six days ago. Has completed 5 days of Paxlovid.
- Now with residual cough. Tested in the ED today and serology remains positive.
- Maintain droplet precautions for now.
- Not febrile, hypoxemic, etc. No additional COVID-specific therapies needed at present.
Acute TME / Increased Confusion
- ? secondary to acute infection(s), metabolic process / KEON, underlying malignancy or med effect.
- Recently started on BID trazodone which we will hold.
- Address UTI, KEON, etc as noted above and follow for improvement in mental status.
Metastatic Endometrial Cancer
- s/p initial surgery and then course of chemoradiation.
- Some consideration for immunotherapy - though son doubts that they will pursue this.
- CT as noted above to assess for mechanical effects of malignancy.
- Recent MRI with ? metastatic lesion to the brain - ? repeat imaging with contrast for further evaluation.
- Consideration for Palliative or Hospice Care evaluations.
Benign Hypertension
- Continue diltiazem and hydralazine.
- Hold ARB, spironolactone given KEON and hyperkalemia.
Hypothyroidism
- Stable. Continue current T4 supplementation.
Chronic Normocytic Anemia
- Components of iron deficiency and anemia of chronic disease.
- Hgb is at / near known baseline. Follow for changes.
Chronic Pain of Malignancy
- Continue buprenorphine. Adjust regimen as needed for control of pain, nausea, etc.
- See above re: ? Palliative or Hospice Care.
DVT Prophylaxis: Lovenox
Code Status: Full
[2025-05-08] MEDS: XALATAN OPHTHALMIC SOLUTION 1 DROP BOTH EYES (22:53)
[2025-05-09] VITALS (8 sets, daily range): BP systolic 133–162; BP diastolic 51–67; PULSE 79–111; O2SAT 98; BMI 22.4
--- NOTE | 2025-05-09 00:12 | PTCARENOTE ---
Pt arrived to [facility] from ED on stretcher at 2107. Patient kiln puller to bed. Patient AAOx2-3, forgetful/disoriented to time intermittently-bed alarm in place. High fall risk protocol initiated. Bed in lowest position & locked. Buprenorphine patch
confirmed with KB. Oriented to unit, call john within reach.
[2025-05-09] MEDS: SYNTHROID 25 MCG PO (05:33)
[2025-05-09 06:51] LABS: Hematocrit 25.5 % (37.0-47.0); Hemoglobin 8.5 g/dL (12.0-16.0); Mean Corp Hgb Conc. 33.3 g/dL (33.0-37.0); Mean Corpuscular Volume 96.6 fL (81.0-99.0); Platelet Count 264 10^3/uL (130-400); Red Cell Dist. Width 16.7 % (11.5-14.5)
[2025-05-09 07:18] LABS: Blood Urea Nitrogen 60 mg/dl (7-17); Calcium 8.9 mg/dl (8.4-10.2); Carbon Dioxide 22 mmol/L (22-30); Chloride 109 mmol/L (98-107); Estimated Creatinine Clearance 23 ml/min; Glucose 83 mg/dl (70-99); Potassium 5.3 mmol/L (3.5-5.1); Sodium 138 mmol/L (135-145); eGFR 31.61
[2025-05-09] MEDS: CARDIZEM CD 240 MG PO (08:56)
[2025-05-09] MEDS: PEPCID 20 MG PO (08:56)
[2025-05-09] MEDS: MUCINEX 600 MG PO ×2 (08:56→21:46)
[2025-05-09] MEDS: ASPIR LOW (ENTERIC COATED) 81 MG PO (08:56)
[2025-05-09] MEDS: HEPARIN 5000 UNITS SC ×2 (08:57→21:46)
[2025-05-09] MEDS: PROTONIX 40 MG PO (08:57)
[2025-05-09] MEDS: APRESOLINE 25 MG PO ×2 (08:57→22:00)
[2025-05-09] MEDS: NSS 1000 IV ×2 (08:59→16:24)
--- NOTE | 2025-05-09 09:53 | W.PN.HOSP.TC ---
Addendum entered and electronically signed by Georgette Villalobos MD 05/09/25 19:20:
I saw and evaluated the patient independently. I reviewed the resident�s note and agree with findings and plan as documented by Dr. Caceres.
GENERAL: chronically ill appearing female in no apparent distress--cachectic
HEENT: NC/AT
HEART: regular rate and rhythm, +S1, +S2
LUNGS : clear to auscultation bilaterally
ABDOM: soft, nontender, nondistended, + bowel sounds
EXT: no cyanosis, clubbing, or edema
NEUROLOGIC: grossly intact
Urinary tract infection/Hyperkalemia/Acute Kidney Injury--possibly due to endometrial mass with local obstruction vs poor PO intake/dehydration--improving with IVF--creat 2.2 to 1.6 (baseline 0.8)--cont IVF--follow K+, holding ARB, aldactone,
potassium supplements--treat UTI, cont rocephin--await cultures
COVID-19 Infection--finished Paxlovid but still testing positive--cont isolation
Altered Mental Status- possibly due to UTI, metabolic process/KEON, underlying malignancy or med effect-- Recently started on trazodone BID - HOLD
Metastatic Endometrial Cancer--finished chemo--followed at [facility]--son interested in hospice information
Essential Hypertension-- Continue diltiazem and hydralazine-- Hold ARB, spironolactone since she has KEON and hyperkalemia.
Hypothyroidism- Stable. Continue current T4 supplementation.
Chronic Normocytic Anemia- Likely due to anemia of chronic disease- Hemoglobin at baseline
Chronic Pain of Malignancy- Continue buprenorphine. Adjust regimen as needed.
DVT Prophylaxis: Lovenox
Full code
Original Note:
Today's Communication/Plan
-
Continue Rocephin 1000 mg IV every 24 hours.
Continue droplet precautions.
Continue diltiazem. hydralazine, buprenorphine patch
Holding ARB, spironolactone, potassium supplement, trazodone.
Consult hospice for education purposes only.
Trend labs, and monitor for improvement.
Assessment / Plan
Assessment / Plan
85 year old female with a past medical history of stage IV endometrial cancer, hypertension, urinary retention, CVA/TIA and UTI, brought in from a SNF, who presented with confusion, cough, nausea, lower abdominal pain, constipation and decreased
oral intake. She has been having recurrent episodes of urinary incontinence since her Mccabe catheter was removed after 6 months. Recently had COVID-19, took Paxlovid x5 days, serology in ED still positive.
CT abdomen pelvis 05/08/2025: Mild right lower lobe pneumonia. Moderate to large hiatal hernia. No renal, ureteral, bladder calculus. No obstructive uropathy. Possible cystitis. Fecal impaction with moderate solid stool in the rectum. Large
soft tissue mass demonstrating approximately 11.5 cm AP x 8 cm transverse, likely neoplasm.
Assessment/Plan:
# Urinary tract infection
# Hyperkalemia
# Acute Kidney Injury
- Awaiting cultures reports. continue empiric antibiotics.
- Creatinine 2.2, increased from 0.8 baseline
- Holding ARB, spironolactone, potassium supplementation, etc.
- Monitor for improvement.
# COVID-19 Infection
- Positive for COVID-19 six days ago. 5 day course of Paxlovid. Serology in ED positive.
- Still has cough, maintain droplet precautions.
# Altered Mental Status
- possibly due to UTI, metabolic process / KEON, underlying malignancy or med effect.
- Recently started on trazodone BID - HOLD
- Address UTI and acute kidney injury and monitor improvement.
# Metastatic Endometrial Cancer
- s/p initial surgery followed by chemoradiation.
- Son wants to take patient home, and have her comfortable.
- Consult for [facility] hospice for education only. Son hesitant for hospice currently.
# Essential Hypertension
- Continue diltiazem and hydralazine.
- Hold ARB, spironolactone since she has KEON and hyperkalemia.
# Hypothyroidism
- Stable. Continue current T4 supplementation.
# Chronic Normocytic Anemia
- Likely due to anemia of chronic disease.
- Hemoglobin at baseline
- Trend CBC
# Chronic Pain of Malignancy
- Continue buprenorphine. Adjust regimen as needed.
DVT Prophylaxis: Lovenox
Full code
Anticipated Discharge: 24 - 48 hours
Subjective/Interval History
-
Date of Service: May 09, 2025
85 year old female with a past medical history of stage IV endometrial cancer, hypertension, urinary retention, CVA/TIA and UTI, brought in from a SNF, who presented with confusion, cough, nausea, lower abdominal pain, constipation and decreased
oral intake. She received a course of Augmentin for UTI last week. Mccabe catheter was in place for 6 months before it was removed at the last hospital visit. Patient has been having urinary incontinence due to generalized weakness and inability to
use the bathroom without assistance. She tested positive for COVID-19 at the SNF after which she did a 5 day course of Paxlovid. Patient�s serology in the ED upon arrival was still positive. Upon evaluation today, family was not present with patient
to provide history. She stated she �wet herself� and wants change. No other complaints. Son expresses that he wants to take her home, and not send her to a SNF. Not considering hospice for now, and wants to do 3-month follow-ups.
Objective Data
-
Labs:
Laboratory Results
05/09/25
05:54
WBC 9.5
Hgb 8.5 L
Hct 25.5 L
Plt Count 264
Sodium 138
Potassium 5.3 H
Chloride 109 H
Carbon Dioxide 22
BUN 60 H
Creatinine 1.6 H
Glucose 83
Calcium 8.9
Vital Signs:
Vital Signs
Temp Pulse Resp BP Pulse Ox
97.5 F 88 18 133/56 98
05/09/25 07:55 05/09/25 07:55 05/09/25 07:55 05/09/25 07:55 05/09/25 07:55
Review of Systems
-
History Source: Patient and Family
All other systems: Reviewed and negative
Constitutional: Reports No Symptoms
EENT: Reports No Symptoms Reported
Respiratory: Reports Cough
Cardiac: Reports No Symptoms
Abdomen/GI: Reports Abdominal Pain, Nausea and Constipated
Breast: Reports No Symptoms
Genitourinary: Reports Incontinence
Musculoskeletal: Reports No Symptoms
Skin: Reports No Symptoms
Neuro: Reports Other (Confusion)
Endocrine: Reports No Symptoms
Hematologic / Lymphatic: Reports No Symptoms
Allergy / Immunology: Reports No Symptoms
Physical Exam
-
General: No Apparent Distress, Conversant, Appears Chronically Ill and Cachectic
HEENT: Normocephalic, Atraumatic and Other (Dry mucous membranes)
Respiratory: Clear to Auscultation and Non Labored Respirations
Cardiac: Regular Rhythm and S1/S2
Breast: Deferred by me
GI: Soft, Nontender, Nondistended and Normal Bowel Sounds
Rectal: Deferred by Provider
Genito-urinary: No Costovertebral Tender
Musculoskeletal: No Clubbing, No Cyanosis and No Edema
Skin: Warm and Dry
Neuro: Awake, Alert and Oriented (x 3)
Psych: Calm and Intact Judgement/Insight
Data Reviewed
-
CT Scan: Report Reviewed by me and Discussed with Physician
Labs: Labs Reviewed by me and Discussed with Physician
Old Records: Reviewed
[2025-05-09] MEDS: ZOFRAN 4 MG IV ×2 (11:21→18:49)
--- NOTE | 2025-05-09 12:25 | PTOTSP ---
Speech Language Pathology
Pt seen for clinical bedside swallow evaluation. No prior PNA noted per chart review. Seen by DELIVER DRIVER bedside during admission in March 2025 with no concerns for dysphagia. This date, P.O. trials of regular solids and thin liquids provided. Prolonged
mastication, suspect secondary to dentures, which pt stated is baseline. She states she can 'manage' all solids. Adequate bolus formation and A-P transit noted with no oral residue. No overt signs of aspiration.
Recommend:
(1) Regular solids/thin liquids
(2) General aspiration precautions
(3) Meds as tolerated
(4) DELIVER DRIVER to sign off. Please reconsult as indicated
--- NOTE | 2025-05-09 15:25 | CM ---
Patient seen bedside, initial assessment not able to be completed and CM called to patient who requested CM call to patient son. Patient brought to after stay for rehab at [facility] and brought to with change in mental status.
Patient previously was residing with spouse in a 2STH, 12 steps total to enter w/ a landing between. Patient has used RW to ambulate, independent w/ ADLs. No DME identified at that time. Patient son indicated that he wanted patient not to go back to
SNF at this time due to concerns with COVID at SNF. Patient PCP is Syeda Valencia; [facility] in [place]. Patient pending therapy/assessment. Patient son asking for aides with home health care and is asking to have her come home after Tuesday
when the stair glide will be installed. Per son patient is working with Palliative group at [facility]. Patient son indicated that he thinking about hospice at home if possible. CM updated patient about possible education to discuss options for next
steps. Patient son indicated that he would like to have consult. CM will continue to follow for discharge planning needs.
Plan: home with VN ; vs home hospice education consult
[2025-05-09] MEDS: LIPITOR 40 MG PO (17:41)
[2025-05-09] MEDS: MIRALAX 17 GRAMS PO (17:41)
[2025-05-09] MEDS: STERILE WATER FOR INJECTION 10 ML IV (17:41)
[2025-05-09] MEDS: ROCEPHIN 1000 MG IV (17:41)
[2025-05-09] MEDS: XALATAN OPHTHALMIC SOLUTION 1 DROP BOTH EYES (21:49)
[2025-05-10] VITALS (7 sets, daily range): BP systolic 122–152; BP diastolic 52–60; PULSE 90–116; BMI 22.9
[2025-05-10] MEDS: NSS 1000 IV ×2 (02:19→13:50)
[2025-05-10] MEDS: SYNTHROID 25 MCG PO (05:05)
[2025-05-10 05:58] LABS: Hematocrit 23.8 % (37.0-47.0); Hemoglobin 7.9 g/dL (12.0-16.0); Mean Corp Hgb Conc. 33.2 g/dL (33.0-37.0); Mean Corpuscular Volume 97.9 fL (81.0-99.0); Nucleated Red Blood Cells % 0 %; Platelet Count 247 10^3/uL (130-400); Red Cell Dist. Width 16.6 % (11.5-14.5)
[2025-05-10 06:26] LABS: ALT (SGPT) 18 U/L (0-35); AST (SGOT) 25 U/L (14-36); Albumin 2.7 g/dl (3.5-5.0); Alkaline Phosphatase 80 U/L (38-126); Blood Urea Nitrogen 39 mg/dl (7-17); Calcium 8.4 mg/dl (8.4-10.2); Carbon Dioxide 20 mmol/L (22-30); Chloride 114 mmol/L (98-107); Estimated Creatinine Clearance 33 ml/min; Glucose 86 mg/dl (70-99); Magnesium 1.8 mg/dl (1.6-2.3); Potassium 4.6 mmol/L (3.5-5.1); Sodium 139 mmol/L (135-145); Total Protein 5.1 g/dl (6.3-8.2); eGFR 49.55
[2025-05-10] MEDS: MUCINEX 600 MG PO ×2 (09:07→21:14)
[2025-05-10] MEDS: CARDIZEM CD 240 MG PO (09:07)
[2025-05-10] MEDS: ASPIR LOW (ENTERIC COATED) 81 MG PO (09:08)
[2025-05-10] MEDS: APRESOLINE 25 MG PO ×2 (09:08→21:14)
[2025-05-10] MEDS: HEPARIN 5000 UNITS SC ×2 (09:08→21:13)
[2025-05-10] MEDS: PROTONIX 40 MG PO (09:08)
--- NOTE | 2025-05-10 09:35 | HOSPNOTE ---
Addendum entered by Milvia Anne RN 05/10/25 12:34:
Spoke with son and discussed hospice and the philosophy. The son feels he will most likely send the patient home with VN and therapy and then discuss hospice further. The son knows to call me with any further questions or concerns. Attending and CM
aware of plan.
Original Note:
Adam the son will call me back to discuss hospice care and the philosophy. More information to follow.
[2025-05-10] MEDS: ZOFRAN 4 MG IV ×2 (12:12→18:23)
--- NOTE | 2025-05-10 15:04 | VNURNOTE ---
Optimization Analyst SPOKE WITH SON to discuss [facility] nurse/therapy, visits, schedule and homebound status. Patient is agreeable and understands that visits at home will be 2-3 x per week to assess and teach medical management.
[facility] care in 1-2 days after discharge from .
VN referral completed in [facility].
Patient may require a hospital bed at discharge. Sent script, facesheet, H&P to Kelsy at [facility]. Waiting for updated progress note reflecting need from hospital bed from Dr. Villalobos. CM aware note is needed and needs to be
faxed to [employer] [facility].
--- NOTE | 2025-05-10 15:52 | W.PN.HOSP.TC ---
Addendum entered and electronically signed by Georgette Villalobos MD 05/10/25 18:44:
I saw and evaluated the patient independently. I reviewed the resident�s note and agree with findings and plan as documented by Dr. Caceres.
GENERAL: chronically ill appearing female in no apparent distress--cachectic
HEENT: NC/AT
HEART: regular rate and rhythm, +S1, +S2
LUNGS : clear to auscultation bilaterally
ABDOM: soft, nontender, nondistended, + bowel sounds
EXT: no cyanosis, clubbing, or edema
NEUROLOGIC: grossly intact
E. coli Urinary tract infection/Hyperkalemia/Acute Kidney Injury--possibly due to endometrial mass with local obstruction vs poor PO intake/dehydration--improving with IVF--creat 2.2 to 1.1 (baseline 0.8)--cont IVF--follow K+, holding ARB,
Aldactone, potassium supplements--treat UTI, cont rocephin--await cultures
COVID-19 Infection--finished Paxlovid but still testing positive--cont isolation
Altered Mental Status- possibly due to UTI, metabolic process/KEON, underlying malignancy or med effect-- Recently started on trazodone BID - HOLD
Metastatic Endometrial Cancer--finished chemo--followed at [facility]--son interested in hospice information
Essential Hypertension-- Continue diltiazem and hydralazine-- Hold ARB, spironolactone since she has KEON and hyperkalemia.
Hypothyroidism- Stable. Continue current T4 supplementation.
Chronic Normocytic Anemia- Likely due to anemia of chronic disease- Hemoglobin at baseline
Chronic Pain of Malignancy- Continue buprenorphine. Adjust regimen as needed.
DVT Prophylaxis: Lovenox
Full code
Original Note:
Today's Communication/Plan
-
Hospice consult for education.
Continue Rocephin for UTI
Continue drop precautions
Assessment / Plan
Assessment / Plan
85 year old female with a past medical history of stage IV endometrial cancer, hypertension, urinary retention, CVA/TIA and UTI, brought in from a SNF, who presented with confusion, cough, nausea, lower abdominal pain, constipation and decreased
oral intake. She has been having recurrent episodes of urinary incontinence since her Mccabe catheter was removed after 6 months. Recently had COVID-19, took Paxlovid x5 days, serology in ED still positive.
CT abdomen pelvis 05/08/2025: Mild right lower lobe pneumonia. Moderate to large hiatal hernia. No renal, ureteral, bladder calculus. No obstructive uropathy. Possible cystitis. Fecal impaction with moderate solid stool in the rectum. Large
soft tissue mass demonstrating approximately 11.5 cm AP x 8 cm transverse, likely neoplasm.
Assessment/Plan:
# Urinary tract infection
# Acute Kidney Injury
- Urine culture showed E. coli growth. Continue Rocephin.
- Creatinine 1.1, decrease from 2.2 yesterday (baseline is 0.8)
- BUN decreased from 66 to 39
# Hyperkalemia
- K 4.6.
- Will continue to monitor; Holding ARB, spironolactone, potassium supplementation.
# COVID-19 Infection
- Positive for COVID-19 six days ago. 5 day course of Paxlovid. Serology in ED positive.
- Still has cough, maintain droplet precautions.
# Altered Mental Status -improved
- Trazodone held.
- Will continue to monitor
# Metastatic Endometrial Cancer
- s/p initial surgery followed by chemoradiation.
- Son wants to take patient home instead of SNF.
- Unclear if patient is aware of her prognosis, will hold hospice conversations.
# Essential Hypertension
- Continue diltiazem and hydralazine.
# Hypothyroidism
- Stable. Continue current T4 supplementation.
# Chronic Normocytic Anemia
- Likely due to anemia of chronic disease.
- Hemoglobin at 7.9
- Trend CBC
# Chronic Pain of Malignancy
- Continue buprenorphine. Adjust regimen as needed.
DVT Prophylaxis: Lovenox
Full code
Anticipated Discharge: 24 - 48 hours
Subjective/Interval History
-
Date of Service: May 10, 2025
85 year old female with a past medical history of stage IV endometrial cancer, hypertension, urinary retention, CVA/TIA and UTI, brought in from a SNF, who presented with confusion, cough, nausea, lower abdominal pain, constipation and decreased
oral intake. She received a course of Augmentin for UTI last week. Mccabe catheter was in place for 6 months before it was removed at the last hospital visit. Patient has been having urinary incontinence due to generalized weakness and inability to
use the bathroom without assistance. She tested positive for COVID-19 at the SNF after which she did a 5 day course of Paxlovid. Patient�s serology in the ED upon arrival was still positive. Upon evaluation today, patient endorsed nausea, no new
complaints. When asked about the understanding of the staging of cancer, patient states she has not gotten the surgery to take out the mass in the pelvic region yet. Son hesitant to starting hospice, and wants to take her home instead of sending to
a SNF.
Objective Data
-
Labs:
Laboratory Results
05/10/25
05:49
WBC 7.3
Hgb 7.9 L
Hct 23.8 L
Plt Count 247
Sodium 139
Potassium 4.6
Chloride 114 H
Carbon Dioxide 20 L
BUN 39 H
Creatinine 1.1 H
Glucose 86
Calcium 8.4
Total Bilirubin 0.4
AST 25
ALT 18
Alkaline Phosphatase 80
Vital Signs:
Vital Signs
Temp Pulse Resp BP Pulse Ox
98.0 F 82 16 131/54 97
05/10/25 12:13 05/10/25 12:13 05/10/25 12:13 05/10/25 12:13 05/10/25 12:13
I&O
05/09/25 05/10/25 05/11/25
06:59 06:59 06:59
Intake Total 2880 / 2880 1580 / 1580
Balance 2880 / 2880 1580 / 1580
Review of Systems
-
History Source: Patient
All other systems: Reviewed and negative
Constitutional: Reports Fatigue
EENT: Reports No Symptoms Reported
Respiratory: Reports Cough
Cardiac: Reports No Symptoms
Abdomen/GI: Reports Nausea
Breast: Reports No Symptoms
Genitourinary: Reports No Symptoms
Musculoskeletal: Reports No Symptoms
Skin: Reports No Symptoms
Neuro: Reports No Symptoms
Endocrine: Reports No Symptoms
Hematologic / Lymphatic: Reports No Symptoms
Allergy / Immunology: Reports No Symptoms
Physical Exam
-
General: No Apparent Distress, Comfortable, Conversant and Cachectic
HEENT: Normocephalic, Atraumatic, Moist Mucous Membranes and Anicteric
Respiratory: Clear to Auscultation
Cardiac: Regular Rhythm and S1/S2
Breast: Deferred by me
GI: Soft, Nontender, Nondistended and Normal Bowel Sounds
Rectal: Deferred by Provider
Genito-urinary: No Costovertebral Tender
Musculoskeletal: No Clubbing, No Cyanosis and No Edema
Skin: Warm and Dry
Neuro: Awake, AO x 3 and Nonfocal/Grossly Intact
Hematologic / Lymphatic: No Lymphadenopathy
Psych: Calm
Data Reviewed
-
Labs: Labs Reviewed by me and Discussed with Physician
Old Records: Reviewed
[2025-05-10] MEDS: STERILE WATER FOR INJECTION 10 ML IV (17:36)
[2025-05-10] MEDS: MIRALAX 17 GRAMS PO (17:36)
[2025-05-10] MEDS: LIPITOR 40 MG PO (17:36)
[2025-05-10] MEDS: ROCEPHIN 1000 MG IV (17:36)
--- NOTE | 2025-05-10 17:45 | CM ---
Plan home with [facility]; when stair glide is installed possibly tuesday, referral for hospital bed sent and started but family asking for discharge tuesday. physicians aware. Patient will need ambulance transportation and patient son is primary contact.
CM will continue to follow for discharge planning needs.
Plan; home with [facility]; watch for bed needs.
[2025-05-10] MEDS: XALATAN OPHTHALMIC SOLUTION 1 DROP BOTH EYES (21:14)
[2025-05-11] MEDS: DULCOLAX 10 MG PO (00:50)
[2025-05-11] MEDS: ZOFRAN IV (00:50)
[2025-05-11] MEDS: ZOFRAN 4 MG IV ×2 (01:05→09:08)
--- NOTE | 2025-05-11 02:02 | PTCARENOTE ---
1x episode of SVT overnight at 2254. Rate of 150. Pt in bed resting, reports abd pain-See DEC. Abd assessment unchanged from nursing shift assessment. House provider made aware. Currently SR on monitor, occasional sinus tachycardia. Prior episodes
of SVT/Sinus tach during dayshift.
[2025-05-11 03:31] VITALS: BP 137/57
[2025-05-11] MEDS: NSS 1000 IV (05:45)
[2025-05-11] MEDS: SYNTHROID 25 MCG PO (05:46)
[2025-05-11 06:00] VITALS: BMI 23.1
[2025-05-11 08:35] VITALS: BP 152/65; BP 153/65; PULSE 95; PULSE 98
[2025-05-11] MEDS: PEPCID 20 MG PO (09:04)
[2025-05-11] MEDS: ASPIR LOW (ENTERIC COATED) 81 MG PO (09:04)
[2025-05-11] MEDS: HEPARIN 5000 UNITS SC ×2 (09:04→20:38)
[2025-05-11] MEDS: MUCINEX 600 MG PO ×2 (09:05→20:38)
[2025-05-11] MEDS: PROTONIX 40 MG PO (09:05)
[2025-05-11] MEDS: CARDIZEM CD 240 MG PO (09:05)
[2025-05-11] MEDS: APRESOLINE 25 MG PO ×2 (09:06→20:44)
[2025-05-11 09:08] LABS: Hematocrit 24.6 % (37.0-47.0); Hemoglobin 8.0 g/dL (12.0-16.0); Mean Corp Hgb Conc. 32.5 g/dL (33.0-37.0); Mean Corpuscular Volume 97.6 fL (81.0-99.0); Nucleated Red Blood Cells % 0 %; Platelet Count 250 10^3/uL (130-400); Red Cell Dist. Width 16.0 % (11.5-14.5)
[2025-05-11 09:53] LABS: ALT (SGPT) 29 U/L (0-35); AST (SGOT) 37 U/L (14-36); Albumin 2.7 g/dl (3.5-5.0); Alkaline Phosphatase 86 U/L (38-126); Blood Urea Nitrogen 27 mg/dl (7-17); Calcium 8.2 mg/dl (8.4-10.2); Carbon Dioxide 21 mmol/L (22-30); Chloride 110 mmol/L (98-107); Estimated Creatinine Clearance 37 ml/min; Glucose 104 mg/dl (70-99); Magnesium 1.5 mg/dl (1.6-2.3); Potassium 4.4 mmol/L (3.5-5.1); Sodium 136 mmol/L (135-145); Total Protein 5.3 g/dl (6.3-8.2); eGFR 55.55
[2025-05-11 11:09] VITALS: BP 122/85
[2025-05-11] MEDS: COMPAZINE 10 MG IV (12:36)
--- NOTE | 2025-05-11 13:28 | W.PN.HOSP.TC ---
Addendum entered and electronically signed by Georgette Villalobos MD 05/11/25 13:50:
I saw and evaluated the patient independently. I reviewed the resident�s note and agree with findings and plan as documented by Dr. Waller.
GENERAL: chronically ill appearing female in no apparent distress--cachectic
HEENT: NC/AT
HEART: regular rate and rhythm, +S1, +S2
LUNGS : clear to auscultation bilaterally
ABDOM: soft, nontender, nondistended, + bowel sounds
EXT: no cyanosis, clubbing, or edema
NEUROLOGIC: grossly intact
E. coli Urinary tract infection/Hyperkalemia/Acute Kidney Injury--possibly due to endometrial mass with local obstruction vs poor PO intake/dehydration--improving with IVF--creat 2.2 to 1.0 (baseline 0.8)--stop IVF--follow K+, holding ARB,
Aldactone, potassium supplements-- cont rocephin--await sensitivities
COVID-19 Infection--finished Paxlovid but still testing positive--cont isolation
Altered Mental Status- possibly due to UTI, metabolic process/KEON, underlying malignancy or med effect-- Recently started on trazodone BID - HOLD
Metastatic Endometrial Cancer--finished chemo--[facility]--son interested in hospice information but likely will be d/c home Tuesday with [facility]N and transition to hospice when ready
Essential Hypertension-- Continue diltiazem and hydralazine-- Hold ARB, spironolactone since she has KEON and hyperkalemia.
Hypothyroidism- Stable. Continue current T4 supplementation.
Chronic Normocytic Anemia- Likely due to anemia of chronic disease- Hemoglobin at baseline
Chronic Pain of Malignancy- Continue buprenorphine. Adjust regimen as needed.
DVT Prophylaxis: Lovenox
Full code
Patient is in need of a semi-electric hospital bed with foam mattress due to the need to elevate head of bed above 30 degrees to prevent aspiration and to facilitate frequent repositioning to prevent bed ulcers and pressure points.
Original Note:
Today's Communication/Plan
-
One-time dose of IV Compazine, continue to monitor nausea, continue IV Zofran as needed, consider adding Compazine if this offers more relief than Zofran.
Continue to encourage p.o. intake.
Continue to encourage working with PT and ambulation.
Continue antibiotics.
Assessment / Plan
Assessment / Plan
85 year old female with a past medical history of stage IV endometrial cancer, hypertension, urinary retention, CVA/TIA and UTI, brought in from a SNF, who presented with confusion, cough, nausea, lower abdominal pain, constipation and decreased
oral intake. She has been having recurrent episodes of urinary incontinence since her Mccabe catheter was removed after 6 months. Recently had COVID-19, took Paxlovid x5 days, serology in ED still positive.
CT abdomen pelvis 05/08/2025: Mild right lower lobe pneumonia. Moderate to large hiatal hernia. No renal, ureteral, bladder calculus. No obstructive uropathy. Possible cystitis. Fecal impaction with moderate solid stool in the rectum. Large
soft tissue mass demonstrating approximately 11.5 cm AP x 8 cm transverse, likely neoplasm.
Assessment/Plan:
# Urinary tract infection
# Acute Kidney Injury
- Urine culture showed E. coli growth. Continue IV Rocephin per ID.
- Creatinine 1, decrease from 2.2 admission (baseline is 0.8)
- BUN decreased from 66 on admission to 22
# Nausea 2/2 COVID-19
She reports ongoing nausea. She usually has relief with Zofran, which she is ordered as IV Zofran 4 mg every 6 hours as needed. On 05/11/2025, she reported her nausea is worse. She was given a one-time dose of IV Compazine,
- Continue IV Zofran as needed.
- Consider adding Compazine if that offers her more relief.
# Hyperkalemia, resolving
- K 5.4 on admission, 4.6 on 05/10/2025, 4.4 today 05/11/2025,
- Will continue to monitor; Holding ARB, spironolactone, potassium supplementation.
-- Consider restarting if continues to resolve.
# COVID-19 Infection
- Positive for COVID-19 six days ago. 5 day course of Paxlovid. Serology in ED positive.
- Initially had cough, now improving, maintaining droplet precautions until retest is negative.
- PT consulted to help with reconditioning.
# Altered Mental Status -improved
- Trazodone held.
- Will continue to monitor
# Metastatic Endometrial Cancer
- s/p initial surgery followed by chemoradiation.
- Son wants to take patient home instead of SNF.
- Unclear if patient is aware of her prognosis, will hold hospice conversations.
# Essential Hypertension
- Continue diltiazem and hydralazine.
# Hypothyroidism
- Stable. Continue current T4 supplementation.
# Chronic Normocytic Anemia
- Likely due to anemia of chronic disease.
- Hemoglobin at 7.9
- Trend CBC
# Chronic Pain of Malignancy
- Continue buprenorphine. Adjust regimen as needed.
DVT Prophylaxis: Lovenox
Full code
Anticipated Discharge: 24 - 48 hours (Pending clinical improvement and conversation with son)
Subjective/Interval History
-
Date of Service: May 11, 2025
85 year old female with a past medical history of stage IV endometrial cancer, hypertension, urinary retention, CVA/TIA and UTI, brought in from a SNF, who presented with confusion, cough, nausea, lower abdominal pain, constipation and decreased
oral intake. She received a course of Augmentin for UTI last week. Mccabe catheter was in place for 6 months before it was removed at the last hospital visit. Patient has been having urinary incontinence due to generalized weakness and inability to
use the bathroom without assistance. She tested positive for COVID-19 at the SNF after which she did a 5 day course of Paxlovid. Patient�s serology in the ED upon arrival was still positive.�When asked about the understanding of the staging of
cancer, patient states she has not gotten the surgery to take out the mass in the pelvic region yet. Son hesitant to start hospice, and wants to take her home instead of sending to a SNF.
- This morning, she reports wanting to get out of bed to relieve herself, instead of using the bedpan as she has been in the previous days. She feels motivated to work with PT, who I messaged to request a session with.
- Mag 1.5. Supplemented.
- On rounds this morning, she endorses a lot of nausea. A one-time IV Compazine dose was ordered and nurse was asked to give her her as needed Zofran.
Objective Data
-
Labs:
Laboratory Results
05/11/25
08:39
WBC 8.1
Hgb 8.0 L
Hct 24.6 L
Plt Count 250
Sodium 136
Potassium 4.4
Chloride 110 H
Carbon Dioxide 21 L
BUN 27 H
Creatinine 1.0
Glucose 104 H
Calcium 8.2 L
Total Bilirubin 0.4
AST 37 H
ALT 29
Alkaline Phosphatase 86
Vital Signs:
Vital Signs
Temp Pulse Resp BP Pulse Ox
98.5 F 88 17 122/85 96
05/11/25 11:09 05/11/25 11:09 05/11/25 11:09 05/11/25 11:09 05/11/25 11:09
I&O
05/10/25 05/11/25 05/12/25
06:59 06:59 06:59
Intake Total 2880 / 2880 3260 / 3260
Balance 2880 / 2880 3260 / 3260
Review of Systems
-
All other systems: Reviewed and negative
Constitutional: Reports Weight Loss, Fatigue and Weakness
Genitourinary: Reports Dysuria and Frequency
Physical Exam
-
General: Pain (Endorses pain in the bladder region due to it being full), Conversant and Appears Chronically Ill
HEENT: Normocephalic, Atraumatic and Moist Mucous Membranes
Respiratory: Clear to Auscultation and Non Labored Respirations
Cardiac: Regular Rhythm and S1/S2
GI: Soft, Nontender and Distended
Musculoskeletal: No Clubbing and No Cyanosis
Skin: Warm, Dry and Rash
Neuro: AO x 3
Psych: Calm and Intact Judgement/Insight
[2025-05-11] MEDS: MAGNESIUM SULFATE 102 GRAMS IV (14:34)
[2025-05-11 15:27] VITALS: BP 134/54
[2025-05-11] MEDS: MIRALAX 17 GRAMS PO (17:02)
[2025-05-11] MEDS: ROCEPHIN 1000 MG IV (17:02)
[2025-05-11] MEDS: STERILE WATER FOR INJECTION 10 ML IV (17:02)
[2025-05-11] MEDS: LIPITOR 40 MG PO (17:02)
[2025-05-11] MEDS: XALATAN OPHTHALMIC SOLUTION 1 DROP BOTH EYES (20:39)
[2025-05-11 23:12] VITALS: BP 141/57
[2025-05-12 05:36] LABS: Hematocrit 23.4 % (37.0-47.0); Hemoglobin 7.7 g/dL (12.0-16.0); Mean Corp Hgb Conc. 32.9 g/dL (33.0-37.0); Mean Corpuscular Volume 96.3 fL (81.0-99.0); Nucleated Red Blood Cells % 0 %; Platelet Count 230 10^3/uL (130-400); Red Cell Dist. Width 15.8 % (11.5-14.5)
[2025-05-12 05:57] LABS: ALT (SGPT) 28 U/L (0-35); AST (SGOT) 24 U/L (14-36); Albumin 2.5 g/dl (3.5-5.0); Alkaline Phosphatase 82 U/L (38-126); Blood Urea Nitrogen 21 mg/dl (7-17); Calcium 8.4 mg/dl (8.4-10.2); Carbon Dioxide 23 mmol/L (22-30); Chloride 104 mmol/L (98-107); Estimated Creatinine Clearance 41 ml/min; Glucose 114 mg/dl (70-99); Magnesium 1.4 mg/dl (1.6-2.3); Potassium 4.1 mmol/L (3.5-5.1); Sodium 131 mmol/L (135-145); Total Protein 4.9 g/dl (6.3-8.2); eGFR > 60.00
[2025-05-12] MEDS: SYNTHROID 25 MCG PO (05:59)
[2025-05-12 06:00] VITALS: BMI 22.9
[2025-05-12] MEDS: TYLENOL 650 MG PO (06:00)
[2025-05-12 08:02] VITALS: BP 123/53
[2025-05-12] MEDS: ASPIR LOW (ENTERIC COATED) 81 MG PO (08:26)
[2025-05-12] MEDS: APRESOLINE 25 MG PO ×2 (08:26→21:33)
[2025-05-12] MEDS: HEPARIN 5000 UNITS SC ×2 (08:26→21:30)
[2025-05-12] MEDS: MUCINEX 600 MG PO ×2 (08:26→21:30)
[2025-05-12] MEDS: CARDIZEM CD 240 MG PO (08:26)
[2025-05-12] MEDS: PROTONIX 40 MG PO (08:26)
[2025-05-12] MEDS: LIDOCAINE 4% PATCH 1 PATCH TOPICAL (09:50)
[2025-05-12] MEDS: NSS 1000 IV (10:47)
[2025-05-12] MEDS: MAGNESIUM SULFATE 100 IV (10:47)
--- NOTE | 2025-05-12 11:24 | PTCARENOTE ---
pt with 1.4 mag. Stat bag hung. pt with R flank pain despite prn tylenol at 0600. Lidocaine patch applied to R flank. pt oob to chair for about 45 minutes but stated to feel fatigue. aware.
--- NOTE | 2025-05-12 11:38 | W.PN.HOSP.TC ---
Addendum entered and electronically signed by Georgette Villalobos MD 05/12/25 16:09:
I saw and evaluated the patient independently. I reviewed the resident�s note and agree with findings and plan as documented by Dr. Waller.
GENERAL: chronically ill appearing female in no apparent distress--cachectic
HEENT: NC/AT
HEART: regular rate and rhythm, +S1, +S2
LUNGS : clear to auscultation bilaterally
ABDOM: soft, nontender, nondistended, + bowel sounds
EXT: no cyanosis, clubbing, or edema
NEUROLOGIC: grossly intact
Patient is in need of a semi-electric hospital bed with foam mattress due to the need to elevate head of bed above 30 degrees to prevent aspiration and to facilitate frequent repositioning to prevent bed ulcers and pressure points.
ESBL Kleb pneumoniae Urinary tract infection/Hyperkalemia/Acute Kidney Injury--possibly due to endometrial mass with local obstruction vs poor PO intake/dehydration--improving with IVF--creat 2.2 on admission, now at baseline (baseline 0.8)--stop
IVF--follow K+, holding ARB, Aldactone, potassium supplements--change rocephin to meropenem--apprec ID--WBC improving
COVID-19 Infection--finished Paxlovid but still testing positive--cont isolation
acute onset pleuritic chest pain--CT PE negative--lidocaine patch helping
Altered Mental Status- possibly due to UTI, metabolic process/KEON, underlying malignancy or med effect-- Recently started on trazodone BID - HOLD
Metastatic Endometrial Cancer--finished chemo--followed at [facility]--son interested in hospice information but likely will be d/c home Tuesday with [facility]N and transition to hospice when ready
Essential Hypertension-- Continue diltiazem and hydralazine-- Hold ARB, spironolactone since she has KEON and hyperkalemia.
Hypothyroidism- Stable. Continue current T4 supplementation.
Chronic Normocytic Anemia- Likely due to anemia of chronic disease- Hemoglobin at baseline
Chronic Pain of Malignancy- Continue buprenorphine. Adjust regimen as needed.
DVT Prophylaxis: Lovenox
Full code
son not opposed to SNF but not at [facility]--preference would be home with VN if able--ESBL UTI may change plan
Original Note:
Today's Communication/Plan
-
Follow-up ID recs to change antibiotics ISO final urine cultures
Follow-up p.m. mag and replete as needed
CT PE negative for new right sided flank, pleuritic pain. Lidocaine patch and Voltaren gel help. Continue to monitor
Assessment / Plan
Assessment / Plan
85 year old female with a past medical history of stage IV endometrial cancer, hypertension, urinary retention, CVA/TIA and UTI, brought in from a SNF, who presented with confusion, cough, nausea, lower abdominal pain, constipation and decreased
oral intake. She has been having recurrent episodes of urinary incontinence since her Mccabe catheter was removed after 6 months. Recently had COVID-19, took Paxlovid x5 days, serology in ED still positive. On 05/12/2025, she complained of new,
pleuritic right flank pain radiating to the back. Given that she is at risk of hypercoagulation, CT PE was ordered that was negative for PE. Lidocaine patch and Voltaren gel seem to help her pain. Her urine cultures from 05/08/2025 resulted on
05/12/2025 with Klebsiella oxytocin -ESBL. Infectious disease was consulted for further management recs.
CT abdomen pelvis 05/08/2025: Mild right lower lobe pneumonia. Moderate to large hiatal hernia. No renal, ureteral, bladder calculus. No obstructive uropathy. Possible cystitis. Fecal impaction with moderate solid stool in the rectum. Large
soft tissue mass demonstrating approximately 11.5 cm AP x 8 cm transverse, likely neoplasm.
Assessment/Plan:
# Urinary tract infection 2/2 Klebsiella oxytocin-ESBL
# Acute Kidney Injury
- ID consulted, appreciate recs
- Urine culture showed E. coli growth. Continue IV Rocephin per ID.
- Creatinine 1, decrease from 2.2 admission (baseline is 0.8)
- BUN decreased from 66 on admission to 22
# Nausea / COVID-19
She reports ongoing nausea. She usually has relief with Zofran, which she is ordered as IV Zofran 4 mg every 6 hours as needed. On 05/11/2025, she reported her nausea is worse. She was given a one-time dose of IV Compazine,
- Continue IV Zofran as needed.
- Consider adding Compazine if that offers her more relief.
# Right pleuritic pain
Started on 05/12/2025. This was new for her. On exam it did not feel superficial and given her high risk of hypercoagulability, CT PE was ordered which was negative for PE. We tried Voltaren gel and lidocaine patches with decrease in her pain.
- CTPE negative 05/12/2025
- Lidocaine patches and Voltaren gel
# Hypomagnesia
On 05/12/2025 she had a mag of 1.4 back 1.5. This was repleted.
- Continue to replete as needed
- Follow-up on p.m. mag
# Hyperkalemia, resolved
- K 5.4 on admission, 4.6 on 05/10/2025, 4.4 05/11/2025, 4.183 2024.
- Will continue to monitor; Holding ARB, spironolactone, potassium supplementation.
-- Consider restarting if continues to resolve.
# COVID-19 Infection
- Positive for COVID-19 six days ago. 5 day course of Paxlovid. Serology in ED positive.
- Initially had cough, now improving, maintaining droplet precautions until retest is negative.
- PT consulted to help with reconditioning.
# Altered Mental Status -improved
- Trazodone held.
- Will continue to monitor
# Metastatic Endometrial Cancer
- s/p initial surgery followed by chemoradiation.
- Son wants to take patient home instead of SNF.
- Unclear if patient is aware of her prognosis, will hold hospice conversations.
# Essential Hypertension
- Continue diltiazem and hydralazine.
# Hypothyroidism
- Stable. Continue current T4 supplementation.
# Chronic Normocytic Anemia
- Likely due to anemia of chronic disease.
- Hemoglobin at 7.9
- Trend CBC
# Chronic Pain of Malignancy
- Continue buprenorphine. Adjust regimen as needed.
DVT Prophylaxis: Lovenox
Full code
Anticipated Discharge: 24 - 48 hours (Pending ID recs and case management update)
Subjective/Interval History
-
Date of Service: May 12, 2025
85 year old female with a past medical history of stage IV endometrial cancer, hypertension, urinary retention, CVA/TIA and UTI, brought in from a SNF, who presented with confusion, cough, nausea, lower abdominal pain, constipation and decreased
oral intake. She received a course of Augmentin for UTI last week. Mccabe catheter was in place for 6 months before it was removed at the last hospital visit. Patient has been having urinary incontinence due to generalized weakness and inability to
use the bathroom without assistance. She tested positive for COVID-19 at the SNF after which she did a 5 day course of Paxlovid. Patient�s serology in the ED upon arrival was still positive.�When asked about the understanding of the staging of
cancer, patient states she has not gotten the surgery to take out the mass in the pelvic region yet. Son hesitant to start hospice, and wants to take her home instead of sending to a SNF.
- Reporting right-sided (flank/back) 7/10 pleuritic pain this morning, not relieved by APAP. Ordered CTPE given high r/o hypercoag - CTPE neg. Pain better on rounds with lido + voltaren gel.
- No N/V today.
- U Cltx grew Klebsiella oxytoca-ESBL- ID consulted., appreciate recs.
Objective Data
-
Labs:
Laboratory Results
05/12/25
05:10
WBC 10.3
Hgb 7.7 L
Hct 23.4 L
Plt Count 230
Sodium 131 L
Potassium 4.1
Chloride 104
Carbon Dioxide 23
BUN 21 H
Creatinine 0.9
Glucose 114 H
Calcium 8.4
Total Bilirubin 0.6
AST 24
ALT 28
Alkaline Phosphatase 82
Vital Signs:
Vital Signs
Temp Pulse Resp BP Pulse Ox
98.1 F 87 16 123/53 96
05/12/25 08:02 05/12/25 08:26 05/12/25 08:02 05/12/25 08:26 05/12/25 08:02
I&O
05/11/25 05/12/25 05/13/25
06:59 06:59 06:59
Intake Total 3260 / 3260 1740 / 1740
Balance 3260 / 3260 1740 / 1740
Review of Systems
-
All other systems: Reviewed and negative
Constitutional: Reports Weight Loss and Weakness
Respiratory: Reports Cough and Pleurisy (Pain on right side worse with deep breath)
Abdomen/GI: Reports Abdominal Pain (Palpation) and Bloated
Physical Exam
-
General: Pain (Endorses pain over left flank and lower abdomen), Conversant and Appears Chronically Ill
HEENT: Normocephalic, Atraumatic and Moist Mucous Membranes
Respiratory: Clear to Auscultation and Non Labored Respirations
Cardiac: Regular Rhythm and S1/S2
GI: Soft and Tender (On deep palpation)
Musculoskeletal: No Clubbing and No Cyanosis
Skin: Warm and Dry
Neuro: AO x 3
Psych: Intact Judgement/Insight
[2025-05-12] MEDS: DICLOFENAC 1% TOPICAL GEL 1 GRAM TOPICAL ×2 (12:25→18:11)
[2025-05-12] MEDS: ZOFRAN 4 MG IV ×2 (12:27→21:29)
--- NOTE | 2025-05-12 12:32 | PTCARENOTE ---
pt with increased nausea. prn zofran given. see MAR for proper documentation
--- NOTE | 2025-05-12 14:36 | CON.ID ---
Consultation
-
Date/Time Consultation Requested: May 12, 2025 0957
Date/Time Consultation Performed: May 12, 2025 1435
Requesting Provider: Dr. Beth Douglas
Performing Provider: Dr. Samantha Alcantara
Reason for Consultation: COVID and resistant UTI
Chief Complaint / Past History
Chief Complaint
cough
History of Present Illness
History obtained from the patient as well as from her son at bedside. She is a 85-year-old female with stage IV uterine cancer s/p chemotherapy and radiation at [place], recent CVA who presented to the hospital 05/08 from [facility] due to cough, nausea,
change in mental status. She was recently diagnosed with COVID at [facility] s/p 5 days of Paxlovid. She c/o of nausea without vomiting. Appetite poor. Cough dry. She is incontinent of urine. She WBC 12.3. In ED COVID antigen positive still positive.
She saturates well in RA. CXR mild RLL opacity. UA >100 wbc. She was placed on ceftriaxone. Developed low grade fever last night. Ucx resulted as ESBL-Klebsiella. Today pt reports cough improving. No SOB. No chills. Still with nausea and poor
appetite. c/o right hip pain.
Past History
Additional Past Medical History:
Hypertension
Hypothyroidism
CAD
CVA
Stage 4 uterine cancer status post hysterectomy s/p chemo, radiation [facility]
h/x Chronic indwelling Mccabe catheter due to pelvic mass, removed early 04/2025
Gout
History of right breast lumpectomy -atypical lobular hyperplasia 2022
Cholecystectomy
R shoulder replacement
Past Surgical History: Cardiac
Allergy History:
No Known Allergies Allergy (Verified 04/15/25 13:57)
Medications Reviewed: Yes
Current Antibiotics:
Ceftriaxone
Social History
Tobacco: Non-Smoker
Alcohol: None
Drug: None
Personal:
Family History
Family History: Not Pertinent
Review of Systems
Review of Systems
General: Change in Appetite; Negative Fever or Chills
HEENT: Negative Sinus Problems, Headache or Pharyngitis
Cardiovascular: Negative Chest Pain
Respiratory: Cough; Negative Dyspnea or Sputum Production
Gasteroenterology: Nausea and Other (constipated); Negative Vomiting or Diarrhea
Genital / Urological: Negative Flank Pain
Endocrine: Weakness and Fatigue
All systems: All other systems were reviewed and were negative
Vital Signs
Temp Pulse Resp BP Pulse Ox
98.1 F 87 16 123/53 96
05/12/25 08:02 05/12/25 08:26 05/12/25 08:02 05/12/25 08:26 05/12/25 08:02
Selected Entries
05/11/25
23:12
Temp 100.7 F H
Physical Exam
Physical Exam
Constitutional: Chronically Ill
Head: Other (No frontal or maxillary sinus tenderness)
Eyes: Sclera Anicteric and Erythema
Cardiovascular: Regular Rate and S1/S2
Pulmonary: Rales (Right base crackles)
Gastrointestinal: Soft, Non Tender, Non Distended and Normal Bowel Sounds
Genito-Urinary: Negative CVA Tenderness
Extremities: Negative Edema
Neurological: Awake and Alert
Lines: Port (RCW no erythema)
Lab / Diagnostic Study Results
05/12/25 05:10
05/12/25 05:10
Abs Immat Gran (auto) 0.1 10^3/uL (0-0.05) H 05/12/25 05:10
Absolute Neuts (auto) 8.7 10^3/uL (1.4-6.5) H 05/12/25 05:10
Absolute Lymphs (auto) 0.4 10^3/uL (1.2-3.4) L 05/12/25 05:10
Absolute Monos (auto) 1.2 10^3/uL (0.1-0.6) H 05/12/25 05:10
Absolute Basos (auto) 0.0 10^3/uL (0-0.2) 05/12/25 05:10
Immature Gran % 1.0 % (0-0.5) H 05/12/25 05:10
Neutrophils % 83.8 % (42.2-75.2) H 05/12/25 05:10
Lymphocytes % 3.5 % (20.5-51.1) L 05/12/25 05:10
Monocytes % 11.2 % (1.7-9.3) H 05/12/25 05:10
Eosinophils % 0.3 % (0-6) 05/12/25 05:10
Basophils % 0.2 % (0-2) 05/12/25 05:10
Ur Squamous Epith Cells 0-2 /LPF (Few) 05/08/25 17:44
Microbiology Results
Micro:
05/08/25 17:44 Urine Culture - Final
Urine Klebsiella oxytoca - ESBL
05/08/25 23:01 MRSA Screen - Final
Nose No Methicillin Resistant Staphylococcus aureus isolated.
05/08/25 14:44 Influenza Types A & B (SHANICE) - Final
Nasal Swab Negative for Influenza A & B, NAAT
Negative results must be combined with clinical observations
and patient history.
Nucleic Acid Amplification test (NAAT)performed on the
[employer] platform.
05/12/25 CT chest: No acute pulmonary thromboembolism. 10 mm solid pulmonary nodule in the anteromedial right lung, most suspicious for a pulmonary metastasis.
Mild patchy opacities in the right lower lung for which considerations include pneumonitis/pneumonia or atelectasis. Small to moderate right and trace left pleural effusions.
Large hiatal hernia. Diffuse esophageal wall thickening and esophageal fluid/debris, raising concern for esophagitis and esophageal dysmotility and/or gastroesophageal reflux.
05/08/25 CT a/p: Mild right lower lobe pneumonia. Moderate to large hiatal hernia. No renal, ureteral, or bladder calculus. No obstructive uropathy. Left renal cysts and small left renal benign angiomyolipoma. Along the nondependent margin to the
right of midline, 2 tiny foci of gas are seen within the bladder lumen. Minimal soft tissue stranding of the bladder wall. Possible cystitis. In the perineum, there is a large soft tissue mass demonstrated measuring approximately 11.5 cm AP by 8 cm
transverse. Consider neoplasm, possibly related to the labia, vaginal, or cervical in nature. Posterior right external iliac adenopathy measuring 2.7 cm.
Assessment / Plan
# MDR ESBL-Klebsiella UTI
# Fever
- DC ceftriaxone
- Start meropenem 500mg iv q8h.
- Trend temps
- Continue contact isolation
# COVID present on admission
# RLL PNA - from recent COVID vs bacterial
- s/p 5 days Paxlovid at [facility]
- Not requiring O2
- COVID antigen remains positive.
Continue novel respiratory isolation.
Immunocompromised host sheds COVID longer than normal host
# Stage IV endometrial CA off chemo/xrt
# Failure to thrive
- Poor prognosis
- Continue goals of care discussion
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
Hypertension
Hypothyroidism
CAD
CVA
Stage 4 uterine cancer status post hysterectomy s/p chemo, radiation [facility]
h/x Chronic indwelling Mccabe catheter due to pelvic mass, removed early 04/2025
Gout
History of right breast lumpectomy -atypical lobular hyperplasia 2022
Cholecystectomy
R shoulder replacement
[2025-05-12] MEDS: MERREM 500 MG IV (15:21)
[2025-05-12] MEDS: STERILE WATER FOR INJECTION 10 ML IV (15:21)
[2025-05-12 15:27] VITALS: BP 130/52
[2025-05-12 16:51] LABS: Magnesium 2.9 mg/dl (1.6-2.3)
[2025-05-12] MEDS: MIRALAX PO (17:46)
[2025-05-12] MEDS: LIPITOR 40 MG PO (18:12)
[2025-05-12 18:37] VITALS: BP 130/52; BP 133/52; BP 91/39; PULSE 95; PULSE 97
[2025-05-12] MEDS: REMOVE LIDOCAINE PATCH 1 PATCH REMOVE (21:42)
[2025-05-12] MEDS: DICLOFENAC 1% TOPICAL GEL 100 GRAM TOPICAL (22:33)
[2025-05-12] MEDS: XALATAN OPHTHALMIC SOLUTION 1 DROP BOTH EYES (22:33)
[2025-05-12 23:11] VITALS: BP 104/48
[2025-05-13] MEDS: STERILE WATER FOR INJECTION 10 ML IV ×3 (00:10→16:17)
[2025-05-13] MEDS: MERREM 500 MG IV ×3 (00:10→16:17)
[2025-05-13] MEDS: NSS 1000 IV ×3 (00:11→21:06)
[2025-05-13] MEDS: SYNTHROID 25 MCG PO (05:40)
[2025-05-13 06:00] VITALS: BMI 23.9
[2025-05-13 07:27] LABS: Hematocrit 22.0 % (37.0-47.0); Hemoglobin 7.4 g/dL (12.0-16.0); Mean Corp Hgb Conc. 33.6 g/dL (33.0-37.0); Mean Corpuscular Volume 95.7 fL (81.0-99.0); Nucleated Red Blood Cells % 0 %; Platelet Count 214 10^3/uL (130-400); Red Cell Dist. Width 15.9 % (11.5-14.5)
[2025-05-13 07:41] VITALS: BP 108/37
[2025-05-13 07:51] LABS: ALT (SGPT) 20 U/L (0-35); AST (SGOT) 15 U/L (14-36); Albumin 2.2 g/dl (3.5-5.0); Alkaline Phosphatase 91 U/L (38-126); Blood Urea Nitrogen 21 mg/dl (7-17); Calcium 7.8 mg/dl (8.4-10.2); Carbon Dioxide 23 mmol/L (22-30); Chloride 106 mmol/L (98-107); Estimated Creatinine Clearance 37 ml/min; Glucose 116 mg/dl (70-99); Magnesium 2.1 mg/dl (1.6-2.3); Potassium 4.1 mmol/L (3.5-5.1); Sodium 131 mmol/L (135-145); Total Protein 4.4 g/dl (6.3-8.2); eGFR 55.55
--- NOTE | 2025-05-13 08:50 | W.PN.HOSP.TC ---
Today's Communication/Plan
-
Continue Voltaren gel and lidocaine patch for right flank pain. Monitor symptoms.
Awaiting ID recs.
Awaiting placement PT eval for placement (home vs SNF?)
Assessment / Plan
Assessment / Plan
85-year old female with a past medical history of stage IV endometrial cancer, hypertension, urinary retention, CVA/TIA and UTI, brought in from a SNF, who presented with confusion, cough, nausea, lower abdominal pain, constipation and decreased
oral intake. She has been having recurrent episodes of urinary incontinence since her Mccabe catheter was removed after 6 months. Recently had COVID-19, took Paxlovid x5 days, serology in ED still positive.
Assessment/Plan:
# MDR ESBL-Klebsiella UTI
- MDR ESBL-Klebsiella UTI. Ceftriaxone discontinued, started meropenem 500 mg IV q8h.
- ID following.
# COVID-19 Infection
# Nausea
# RLL Pneumonia - from recent COVID vs bacterial
- Positive for COVID-19 last week.� 5 day course of Paxlovid. Serology in ED positive.
- Still has cough, not requiring O2, maintain droplet precautions as immunocompromised patient sheds COVID longer than normal host.
# Right pleuritic pain
Started yesterday 05/12/25,
CT PE negative.
Give Voltaren gel and lidocaine patch with decrease in pain
# Hypomagnesemia�
1.4 yesterday, repleted
Repeat today 2.1
Will continue to monitor
# Hyperkalemia - Stable
# Acute Kidney Injury
K 4.1 today, will continue to monitor
- Creatinine 1, decreased from 2.2 (0.8 baseline).
- BUN decreased from 66 on admission to 21
# Altered Mental Status - improved
- Trazodone held.
- Will continue to monitor
# Metastatic Endometrial Cancer
# Failure to Thrive
- s/p initial surgery followed by chemoradiation.
- Son wants to take patient home vs SNF - but opposed to [facility].
# Essential Hypertension
- Continue diltiazem and hydralazine.
- Hold ARB, spironolactone since she has KEON and hyperkalemia.
# Hypothyroidism
- Stable.� Continue current T4 supplementation.
# Chronic Normocytic Anemia
- Likely due to anemia of chronic disease.
- Hemoglobin at 7.9
- Trend CBC.
# Chronic Pain of Malignancy
- Continue buprenorphine. Adjust regimen as needed.
DVT Prophylaxis: Lovenox
Awaiting ID recommendations before planning discharge. Case management arranging placement (home vs SNF).
Full code
Anticipated Discharge: Within 24 hours
Subjective/Interval History
-
Date of Service: May 13, 2025
Patient still endorses right sided flank pain but she finds relief with lidocaine patch. No new complaints.
Objective Data
-
Labs:
Laboratory Results
05/13/25
06:55
WBC 8.9
Hgb 7.4 L
Hct 22.0 L
Plt Count 214
Sodium 131 L
Potassium 4.1
Chloride 106
Carbon Dioxide 23
BUN 21 H
Creatinine 1.0
Glucose 116 H
Calcium 7.8 L
Total Bilirubin 0.4
AST 15
ALT 20
Alkaline Phosphatase 91
Vital Signs:
Vital Signs
Temp Pulse Resp BP Pulse Ox
99.0 F 85 16 108/37 96
05/13/25 07:41 05/13/25 07:41 05/13/25 07:41 05/13/25 07:41 05/13/25 07:41
I&O
05/12/25 05/13/25 05/14/25
06:59 06:59 06:59
Intake Total 1740 / 1740 1800 / 1800
Output Total 400 / 400
Balance 1740 / 1740 1400 / 1400
Review of Systems
-
History Source: Patient
All other systems: Reviewed and negative
Constitutional: Reports No Symptoms
EENT: Reports No Symptoms Reported
Respiratory: Reports No Symptoms
Cardiac: Reports No Symptoms
Abdomen/GI: Reports Other
Breast: Reports No Symptoms
Genitourinary: Reports Flank Pain (Right)
Musculoskeletal: Reports No Symptoms
Skin: Reports No Symptoms
Neuro: Reports No Symptoms
Endocrine: Reports No Symptoms
Hematologic / Lymphatic: Reports No Symptoms
Physical Exam
-
General: Comfortable, Conversant and Cachectic
HEENT: Normocephalic, Atraumatic and Anicteric
Respiratory: Clear to Auscultation
Cardiac: Regular Rhythm and S1/S2
GI: Soft, Nontender, Nondistended and Normal Bowel Sounds
Musculoskeletal: No Clubbing, No Cyanosis and No Edema
Skin: Warm and Dry
Neuro: Awake and AO x 3
Hematologic / Lymphatic: No Lymphadenopathy
Psych: Calm and Intact Judgement/Insight
Data Reviewed
-
Labs: Labs Reviewed by me and Discussed with Physician
Old Records: Reviewed
[2025-05-13] MEDS: PROTONIX 40 MG PO (09:31)
[2025-05-13] MEDS: PEPCID 20 MG PO (09:32)
[2025-05-13] MEDS: ASPIR LOW (ENTERIC COATED) 81 MG PO (09:33)
[2025-05-13] MEDS: MUCINEX 600 MG PO ×2 (09:33→20:50)
[2025-05-13] MEDS: HEPARIN 5000 UNITS SC ×2 (09:34→21:00)
[2025-05-13] MEDS: APRESOLINE 25 MG PO (09:35)
[2025-05-13] MEDS: LIDOCAINE 4% PATCH 1 PATCH TOPICAL (09:35)
[2025-05-13] MEDS: CARDIZEM CD 240 MG PO (09:35)
--- NOTE | 2025-05-13 09:37 | W.PN.UPDATE ---
Addendum entered and electronically signed by Wil Gotti MD 05/14/25 12:40:
Total time spent on d/c = 37 min. This included today's physical exam, progress note, review of laboratory and diagnostic data, preparation of discharge documents and prescriptions, and discussions about the pt's hospital course and discharge plan
with the patient and other medical engineer involved in the patient's care.
Addendum entered and electronically signed by Wil Gotti MD 05/13/25 14:59:
hyponatremia
Original Note:
Update Note
Progress Note Update
I saw and evaluated the patient. I reviewed the resident�s note and agree with findings and plan as documented in the resident�s note.
No new complaints. Still with R flank pain.
Gen: NAD, Awake and alert, appears chronically ill
Eyes: EOMI, PERRLA, no scleral icterus.
Neck: supple.
CV: RRR, +S1/S2, no m/r/g.
Resp: dec BS in the bases, no rales, wheezes, or rhonchi.
Abd: +BS, soft, NT, ND
Skin: No rashes.
Neuro: CN 2-12 intact, non-focal.
Psych: Normal mood and affect.
05/08/25 17:44 Urine Urine Culture - Final
Klebsiella oxytoca - ESBL
05/08/25 23:01 Nose MRSA Screen - Final
No Methicillin Resistant Staphylococcus aureus isolated.
05/08/25 14:44 Nasal Swab Influenza Types A & B (SHANICE) - Final
Negative for Influenza A & B, NAAT
Negative results must be combined with clinical observations
and patient history.
Nucleic Acid Amplification test (NAAT)performed on the
[employer] platform.
CTA chest: No PE. 10 mm solid pulmonary nodule in the anteromedial right lung, most suspicious for a pulmonary metastasis. Mild patchy opacities in the right lower lung for which considerations include pneumonitis/pneumonia or atelectasis. Small to
moderate right and trace left pleural effusions.
Large hiatal hernia. Diffuse esophageal wall thickening and esophageal fluid/debris, raising concern for esophagitis and esophageal dysmotility and/or gastroesophageal reflux.
ESBL Kleb pneumoniae UTI:
-with acute metabolic encephalopathy due to UTI versus acute toxic encephalopathy due to trazodone (on hold)
-was on Rocephin, now on Meropenem as per ID
KEON with hyperkalemia:
-likely due to volume depletion as Cr improved with IVFs
-K now normal
-cont to hold Aldactone/ARB
COVID-19 Infection:
-completed 5 days Paxlovid but still testing positive
-cont isolation
Other problems:
Acute onset pleuritic chest pain: CTA chest NEG as above, cont lidoderm patch
Metastatic Endometrial Cancer: completed chemo, followed at [facility], son interested in hospice information but likely will be d/c home today with VN and transition to hospice when ready
Essential HTN: Continue diltiazem/hydralazine
Hypothyroidism: cont Levoxyl
Anemia of chronic disease: trend Hb (currently stable)
Chronic Pain of Malignancy: cont buprenorphine
FULL/Lovenox
Dispo: Timing of d/c depends on ID recs today.
--- NOTE | 2025-05-13 10:53 | CM ---
Addendum entered by Cassandra Harper 05/13/25 15:09:
ID physician spoke with patient son and recommending IV antibiotics until 05/20/25. Patient son requested referrals to [facility], [place] and [facility]. CM sent referrals and await response. Patient son also requested physician to talk to him about options.
Hospitalist aware. CM will continue to follow for discharge planning needs.
Plan; SNF; referrals sent, await response and patient will need auth when bed confirmed.
Original Note:
Patient son spoke with CM and stated that he was told that patient would not be discharged today due to medical concerns. Patient son requested update from physician. Per physician patient for discharge today pending ID assessment. Patient son
indicated that he had put the 24/7 aides on hold due to input yesterday from physicians. CM sent update to physician requested clarification.
Plan; home with [facility]; hospital bed in place and 24/7 aides on hold at this time.
[2025-05-13] MEDS: DICLOFENAC 1% TOPICAL GEL 1 GRAM TOPICAL ×2 (10:55→14:02)
[2025-05-13] MEDS: ZOFRAN 4 MG IV (12:51)
--- NOTE | 2025-05-13 13:15 | PN.CDI ---
CDI
- -
CDI:
Physician Documentation Request
Admit Date: 05/08/25 20:34
Dear Doctor Morris,
Patient presented to ED with change in mental status.
Positive for COVID, positive for UTI and KEON
Progress notes state 'alerted mental status-improved'
Could you clarify in the Progress Notes the most likely etiology of the altered mental status.
Encephalopathy - indicate type, such as metabolic, toxic, septic, alcoholic, anoxic, hypertensive etc. due to a specific condition such as UTI, CVA, hyponatremia etc.
Acute Delirium - indicate known or suspected etiology such as postoperative, due to opioids or other drugs etc. Can also indicate unknown or mixed etiologies.
Other
Use of terms such as suspected, likely, concern for, or probable (associated with a specific diagnosis that is being evaluated, monitored, or treated as if it exists) are acceptable and can be coded in the inpatient setting, when documented at the
time of discharge.
Thank you,
Barbara Frost RN, BSN
CDI Specialist
tiger text
Please use your independent medical judgment in providing your response.
--- NOTE | 2025-05-13 14:01 | W.PN.ID1 ---
Date of Service
Date of Service: May 13, 2025
Today's Communication
- Continue meropenem 500mg iv q8h through 05/19/25 via port
- Infusion sheet submitted to mental health case manager.
Assessment / Plan
# MDR ESBL-Klebsiella UTI
# Fever - resolved
- Continue meropenem 500mg iv q8h through 05/19/25 via port
- Infusion sheet submitted to mental health case manager.
- Continue contact isolation
# COVID present on admission
# RLL PNA - from recent COVID vs bacterial
- s/p 5 days Paxlovid at [facility]
- Not requiring O2
- COVID antigen remains positive.
Continue novel respiratory isolation.
Immunocompromised host sheds COVID longer than normal host
# Stage IV endometrial CA off chemo/xrt
# Failure to thrive
- Continue goals of care discussion
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
Hypertension
Hypothyroidism
CAD
CVA
Stage 4 uterine cancer status post hysterectomy s/p chemo, radiation [facility]
h/x Chronic indwelling Mccabe catheter due to pelvic mass, removed early 04/2025
Gout
History of right breast lumpectomy -atypical lobular hyperplasia 2022
Cholecystectomy
R shoulder replacement
Chief Complaint
-: UTI
Subjective / Review of Systems
No new issues
Vital Signs / Physical Exam
Vital Signs
Vital Signs
Temp Pulse Resp BP Pulse Ox
99.0 F 85 16 128/44 96
05/13/25 07:41 05/13/25 09:35 05/13/25 07:41 05/13/25 09:35 05/13/25 07:41
Physical Exam
Constitutional: Chronically Ill
Cardiovascular: Regular Rate and S1/S2
Pulmonary: Coarse (right base)
Gastrointestinal: Soft, Non Tender and Non Distended
Genito-Urinary: Negative CVA Tenderness
Neurological: Awake and Alert
Lines: Port (RCW)
Objective Data
Lab Data
Lab Results
05/13/25 06:55
05/13/25 06:55
Estimated Creat Clear 37 ml/min 05/13/25 06:55
Total Bilirubin 0.4 mg/dl (0.2-1.3) 05/13/25 06:55
AST 15 U/L (14-36) 05/13/25 06:55
ALT 20 U/L (0-35) 05/13/25 06:55
Alkaline Phosphatase 91 U/L (38-126) 05/13/25 06:55
Most recent labs reviewed.
Micro Results:
05/08/25 17:44 Urine Culture - Final
Urine Klebsiella oxytoca - ESBL
05/08/25 23:01 MRSA Screen - Final
Nose No Methicillin Resistant Staphylococcus aureus isolated.
05/08/25 14:44 Influenza Types A & B (SHANICE) - Final
Nasal Swab Negative for Influenza A & B, NAAT
Negative results must be combined with clinical observations
and patient history.
Nucleic Acid Amplification test (NAAT)performed on the
[employer] platform.
05/12/25 CT chest: No acute pulmonary thromboembolism. 10 mm solid pulmonary nodule in the anteromedial right lung, most suspicious for a pulmonary metastasis.
Mild patchy opacities in the right lower lung for which considerations include pneumonitis/pneumonia or atelectasis. Small to moderate right and trace left pleural effusions.
Large hiatal hernia. Diffuse esophageal wall thickening and esophageal fluid/debris, raising concern for esophagitis and esophageal dysmotility and/or gastroesophageal reflux.
05/08/25 CT a/p: Mild right lower lobe pneumonia. Moderate to large hiatal hernia. No renal, ureteral, or bladder calculus. No obstructive uropathy. Left renal cysts and small left renal benign angiomyolipoma. Along the nondependent margin to the
right of midline, 2 tiny foci of gas are seen within the bladder lumen. Minimal soft tissue stranding of the bladder wall. Possible cystitis. In the perineum, there is a large soft tissue mass demonstrated measuring approximately 11.5 cm AP by 8 cm
transverse. Consider neoplasm, possibly related to the labia, vaginal, or cervical in nature. Posterior right external iliac adenopathy measuring 2.7 cm.
--- NOTE | 2025-05-13 14:23 | PN.CDI ---
CDI
- -
CDI:
Physician Documentation Request
Admit Date: 05/08/25 20:34
Dear Doctor Morris,
Patient admitted with UTI, KEON
Recent sodium results:
Laboratory Tests
05/11/25 05/12/25 05/13/25
08:39 05:10 06:55
Sodium 136 131 L 131 L
Please provide a diagnosis that supports the above lab abnormalities and additional evaluation/ monitoring :
Hyponatremia
Abnormal lab value clinically insignificant
Other
Use of terms such as suspected, likely, concern for, or probable (associated with a specific diagnosis that is being evaluated, monitored, or treated as if it exists) are acceptable and can be coded in the inpatient setting, when documented at the
time of discharge.
Thank you,
Barbara Frost RN, BSN
CDI Specialist
tiger text
Please use your independent medical judgment in providing your response.
--- NOTE | 2025-05-13 14:54 | WOUNDNOTE ---
[facility] RN note: Patient admitted with KEON, UTI. Patient lives at home with her . Plan if home with VN and aids.
See H&P for complete history.
PMH: from H+P 'Stage IV Endometrial Carcinoma - s/p initial surgery. Chemo / XRT after recurrence. On no active treatment at present.
ASCVD (CVA / TIA, Carotid Disease, Non-Obstructing CAD)
Hypertension
Hypothyroidism
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
Chronic Normocytic Anemia
GERD
History of Breast Cancer s/p Lumpectomy
Past Surgical History: Reports Other
Additional Past Surgical History:
Hysterectomy / BSO
Cholecystectomy
Left Rotator Cuff Care
Right TSA
Right Lumpectomy
R ACW Port Placement'
Wound Location and type/assessment: Patient admitted with: stage 3 vs deep dermal stage 2 sacral/buttocks pressure injuries. R lateral heel scabbed ulcer suspect and L lateral heel scabbed ulcer suspect stage 2 pressure injury. Patient grossly
incontinent of urine as per nursing.
Appetite: good.
Pressure redistribution devices in place: Air chair cushion. [employer] Accumax. JL Pace plans to add an air overlay or switch bed to an air mattress.
Plan: Silicone border foam applied to sacral/buttocks. Foam dressing changed on heels. Patient turned to L semi side lying position with help from JL Pace. Heels off bed with pillow.
Will confirm orders with Hospitalist resident and discussed with JL Pace.
Care plan to be updated and will follow as needed.
Note to case management of equipment requested for discharge: Air overlay or gel overlay for hospital bed. [place] texted CARLIN Harper.
Recommend follow up at wound care center upon discharge.
[2025-05-13 15:42] VITALS: BP 116/40
[2025-05-13] MEDS: DICLOFENAC 1% TOPICAL GEL 2 GRAM TOPICAL (16:26)
[2025-05-13] MEDS: BUTRANS 20 MCG/HR 1 PATCH TRANSDERM (17:19)
[2025-05-13] MEDS: LIPITOR 40 MG PO (17:27)
[2025-05-13] MEDS: MIRALAX 17 GRAMS PO (17:27)
--- NOTE | 2025-05-13 17:59 | PTCARENOTE ---
pt's buprenorphine patch that was place 05/05 on JOHN removed this evening by this RN and wasted with a witness. pt's brought patches in from home. patch sent down and verified with pharmacy and new patch placed on STEPHEN. see worklist for proper
documentation.
[2025-05-13] MEDS: REMOVE PT OWN BUTRANS PATCH 1 PATCH REMOVE (18:00)
[2025-05-13] MEDS: COMPAZINE 10 MG IV (18:30)
--- NOTE | 2025-05-13 18:48 | PTCARENOTE ---
pt straight cathed per protocol for 475ml of yellow urine this evening after being bladder scanned for >400. pt tolerated the cath and states her nausea does feel like it is a little bit better. pt also received one time dose of compazine through
her IV site. see MAR for proper documentation.
[2025-05-13] MEDS: APRESOLINE PO (20:45)
[2025-05-13] MEDS: REMOVE LIDOCAINE PATCH 1 PATCH REMOVE (20:45)
[2025-05-13] MEDS: ROXICODONE 5 MG PO (21:09)
[2025-05-13] MEDS: XALATAN OPHTHALMIC SOLUTION 1 DROP BOTH EYES (22:38)
[2025-05-13] MEDS: DICLOFENAC 1% TOPICAL GEL 100 GRAM TOPICAL (22:40)
[2025-05-13 23:00] VITALS: BP 127/38
[2025-05-14] VITALS (12 sets, daily range): BP systolic 115–149; BP diastolic 38–55; PULSE 80; O2SAT 95
[2025-05-14] MEDS: STERILE WATER FOR INJECTION 10 ML IV ×3 (00:35→15:48)
[2025-05-14] MEDS: MERREM 500 MG IV ×3 (00:36→15:49)
[2025-05-14 06:12] LABS: Hematocrit 19.6 % (37.0-47.0); Hemoglobin 6.6 g/dL (12.0-16.0); Mean Corp Hgb Conc. 33.7 g/dL (33.0-37.0); Mean Corpuscular Volume 97.0 fL (81.0-99.0); Nucleated Red Blood Cells % 0 %; Platelet Count 201 10^3/uL (130-400); Red Cell Dist. Width 16.1 % (11.5-14.5)
[2025-05-14] MEDS: SYNTHROID 25 MCG PO (06:18)
[2025-05-14] MEDS: NSS 1000 IV ×2 (06:19→21:10)
[2025-05-14 06:20] LABS: ALT (SGPT) 16 U/L (0-35); AST (SGOT) 13 U/L (14-36); Albumin 2.0 g/dl (3.5-5.0); Alkaline Phosphatase 77 U/L (38-126); Blood Urea Nitrogen 19 mg/dl (7-17); Calcium 7.9 mg/dl (8.4-10.2); Carbon Dioxide 21 mmol/L (22-30); Chloride 110 mmol/L (98-107); Estimated Creatinine Clearance 46 ml/min; Glucose 102 mg/dl (70-99); Magnesium 1.8 mg/dl (1.6-2.3); Potassium 3.9 mmol/L (3.5-5.1); Sodium 133 mmol/L (135-145); Total Protein 4.2 g/dl (6.3-8.2); eGFR > 60.00
[2025-05-14 07:15] LABS: Hematocrit 20.3 % (37.0-47.0); Hemoglobin 6.6 g/dL (12.0-16.0)
--- NOTE | 2025-05-14 07:54 | W.PN.UPDATE ---
Update Note
Progress Note Update
I saw and evaluated the patient. I reviewed the resident�s note and agree with findings and plan as documented in the resident�s note.
Denies CP/SOB/abd pain. Says 'I feel a little better.'
Gen: NAD, Awake and alert, appears chronically ill
Eyes: EOMI, PERRLA, no scleral icterus.
Neck: supple.
CV: remains RRR, +S1/S2, no m/r/g.
Resp: remains dec BS in the bases, no rales, wheezes, or rhonchi.
Abd: +BS, soft, NT, ND
Skin: No rashes.
Neuro: remains CN 2-12 intact, non-focal.
Psych: Normal mood and affect.
05/08/25 17:44 Urine Urine Culture - Final
Klebsiella oxytoca - ESBL
05/08/25 23:01 Nose MRSA Screen - Final
No Methicillin Resistant Staphylococcus aureus isolated.
05/08/25 14:44 Nasal Swab Influenza Types A & B (SHANICE) - Final
Negative for Influenza A & B, NAAT
Negative results must be combined with clinical observations
and patient history.
Nucleic Acid Amplification test (NAAT)performed on the
[employer] platform.
CTA chest: No PE. 10 mm solid pulmonary nodule in the anteromedial right lung, most suspicious for a pulmonary metastasis. Mild patchy opacities in the right lower lung for which considerations include pneumonitis/pneumonia or atelectasis. Small to
moderate right and trace left pleural effusions.
Large hiatal hernia. Diffuse esophageal wall thickening and esophageal fluid/debris, raising concern for esophagitis and esophageal dysmotility and/or gastroesophageal reflux.
ESBL Kleb pneumoniae UTI:
-with acute metabolic encephalopathy due to UTI versus acute toxic encephalopathy due to trazodone (on hold)
-was on Rocephin, now on Meropenem through 05/19/25 as per ID
KEON with hyperkalemia:
-likely due to volume depletion as Cr improved with IVFs
-K now normal
-cont to hold Aldactone/ARB
COVID-19 Infection:
-completed 5 days Paxlovid but still testing positive
-cont isolation
-virus shedding will be prolonged in immunosuppressed
Anemia of chronic disease:
-no evidence of bleeding
-transfuse 1U pRBCs
Other problems:
Acute onset pleuritic chest pain: CTA chest NEG as above, cont lidoderm patch
Metastatic Endometrial Cancer: completed chemo, followed at [facility], decisions on hospice can be made post-d/c
Essential HTN: Continue diltiazem/hydralazine
Hypothyroidism: cont Levoxyl
Chronic Pain of Malignancy: cont buprenorphine
Hyponatremia
FULL code
Stop heparin for DVT proph with anemia, start SCDs
Medically cleared for d/c after 1U pRBCs
[2025-05-14] MEDS: HEPARIN SC (09:05)
[2025-05-14] MEDS: CARDIZEM CD 240 MG PO (09:05)
[2025-05-14] MEDS: ASPIR LOW (ENTERIC COATED) 81 MG PO (09:06)
[2025-05-14] MEDS: PROTONIX 40 MG PO (09:06)
[2025-05-14] MEDS: APRESOLINE 25 MG PO ×2 (09:06→20:45)
[2025-05-14] MEDS: MUCINEX 600 MG PO (09:07)
[2025-05-14] MEDS: DICLOFENAC 1% TOPICAL GEL 2 GRAM TOPICAL ×3 (09:07→17:31)
[2025-05-14] MEDS: LIDOCAINE 4% PATCH 1 PATCH TOPICAL (09:08)
--- NOTE | 2025-05-14 10:05 | CM ---
CM following re: discharge planning.
Reviewed pt's chart, spoke to pt's son Adam to update on discharge plan progress.
Both pt and her son are aware that [facility] offered a bed and they expressed their agreement.
According to MD pt is medically stable to be discharged today. IMM reviewed, placed on chart, pt has a copy.
Both pt and her son Adam are aware that [facility] offered a bed and they expressed their agreement
CM spoke to [facility] liaison and she confirmed that pt is accepted for admission today.
CM initiated an auth fro [facility] for SNF level of care at [facility], spoke to [employer] special service representative Rebeca and based on pt's clinical, pt is approved for 4 initial days from today 05/14/25 till 05/17/25 with NRD and LCD 05/17/25. Auth: [id number]. For concurrent
review: [phone].
Auth information forwarded to [facility] liaison.
to arrange ambulance transport BLS. PMNC completed and left with . Ambulance auth to Acute care ambulance obtained: [id number]
[facility] nursing report: [phone]
Discharge instructions fax: [phone]
D/C plan: [facility] for a short term rehab.
[2025-05-14] MEDS: PEPCID 20 MG PO (10:15)
--- NOTE | 2025-05-14 12:51 | W.PN.HOSP.TC ---
Today's Communication/Plan
-
Discharge after 1 unit PRBCs
Assessment / Plan
Assessment / Plan
85-year old female with a past medical history of stage IV endometrial cancer, hypertension, urinary retention, CVA/TIA and UTI, brought in from a SNF, who presented with confusion, cough, nausea, lower abdominal pain, constipation and decreased
oral intake. She has been having recurrent episodes of urinary incontinence since her Mccabe catheter was removed after 6 months. Recently had COVID-19, took Paxlovid x5 days, serology in ED still positive.
Assessment/Plan:
# MDR ESBL- Klebsiella UTI
- MDR ESBL - Klebsiella UTI. Ceftriaxone discontinued, started meropenem 500 mg IV q8h until 05/19/25 per ID.
# Anemia of chronic disease
- Hemoglobin at 6.6, No signs of bleeding.
- Consent obtained, given 1 unit PRBCs.
- Trend H&H.
# COVID-19 Infection
# Nausea
# RLL Pneumonia - from recent COVID vs bacterial
- Positive for COVID-19 last week.�5 day course of Paxlovid. Serology in ED positive.
- Still has cough, not requiring O2, maintain droplet precautions as immunocompromised patient sheds COVID longer than normal host.
# Right pleuritic pain - resolved
- CT PE negative.
- Give Voltaren gel and lidocaine patch with decrease in pain
# Hypomagnesemia�
- 1.8 today
- Will continue to monitor
# Hyperkalemia - Stable
# Acute Kidney Injury
- K 3.9 today, will continue to monitor
- Creatinine 1, decreased from 2.2 (0.8 baseline).
- BUN decreased from 66 on admission to 21
# Altered Mental Status - improved
- Trazodone held.
- Will continue to monitor
# Metastatic Endometrial Cancer
# Failure to Thrive
- s/p initial surgery followed by chemoradiation.
- Son wants to take patient home vs SNF - but opposed to [facility].
# Essential Hypertension
- Continue diltiazem and hydralazine.
# Hypothyroidism
- Stable.� Continue current T4 supplementation.
# Chronic Pain of Malignancy
- Continue buprenorphine. Adjust regimen as needed.
DVT Prophylaxis: Lovenox
Medically cleared for discharge after receiving 1 unit of PRBCs.
Full code
Anticipated Discharge: Today
Subjective/Interval History
-
Date of Service: May 14, 2025
Patient is fatigued at baseline. No new complaints.
Objective Data
-
Labs:
Laboratory Results
05/14/25 05/14/25
05:40 06:38
WBC 6.8
Hgb 6.6 L* 6.6 L*
Hct 19.6 L* 20.3 L*
Plt Count 201
Sodium 133 L
Potassium 3.9
Chloride 110 H
Carbon Dioxide 21 L
BUN 19 H
Creatinine 0.8
Glucose 102 H
Calcium 7.9 L
Total Bilirubin 0.4
AST 13 L
ALT 16
Alkaline Phosphatase 77
Vital Signs:
Vital Signs
Temp Pulse Resp BP Pulse Ox
98.3 F 77 18 119/42 97
05/14/25 10:43 05/14/25 10:43 05/14/25 10:43 05/14/25 10:43 05/14/25 10:43
I&O
05/13/25 05/14/25 05/15/25
06:59 06:59 06:59
Intake Total 1800 / 1800 270 / 270 0 / 0
Output Total 400 / 400 475 / 475
Balance 1400 / 1400 -205 / -205 0 / 0
Review of Systems
-
History Source: Patient
All other systems: Reviewed and negative
Constitutional: Reports Fatigue
EENT: Reports No Symptoms Reported
Respiratory: Reports No Symptoms
Cardiac: Reports No Symptoms
Abdomen/GI: Reports No Symptoms
Breast: Reports No Symptoms
Genitourinary: Reports No Symptoms
Musculoskeletal: Reports No Symptoms
Skin: Reports No Symptoms
Neuro: Reports No Symptoms
Endocrine: Reports No Symptoms
Hematologic / Lymphatic: Reports No Symptoms
Physical Exam
-
General: No Apparent Distress, Comfortable, Conversant and Cachectic
HEENT: Normocephalic, Atraumatic, Moist Mucous Membranes and Anicteric
Respiratory: Clear to Auscultation
Cardiac: Regular Rhythm and S1/S2
GI: Soft, Nontender, Nondistended and Normal Bowel Sounds
Musculoskeletal: No Clubbing, No Cyanosis and No Edema
Neuro: Awake and AO x 3
Psych: Calm
Data Reviewed
-
Labs: Labs Reviewed by me and Discussed with Physician
Old Records: Reviewed
--- NOTE | 2025-05-14 13:14 | PTCARENOTE ---
Patient transfused 1 unit of blood as ordered. tolerated well. No s/s of distress noted.Vs documented per protocol. Plan of care ongoing. Call john within reach.
[2025-05-14] MEDS: NSS IV (13:16)
--- NOTE | 2025-05-14 14:10 | W.DCSUMMARY ---
Discharge Summary
Discharge Data
Date of Admission: 05/08/25
Date of Discharge: 05/14/25
-
Pending Results: No
Hospital Course
85 year old female with a past medical history of stage IV endometrial cancer, hypertension, urinary retention, CVA/TIA and UTI, brought in from a SNF, who presented with confusion, cough, nausea, lower abdominal pain, constipation and decreased
oral intake. She has been having recurrent episodes of urinary incontinence since her Mccabe catheter was removed after 6 months. Recently had COVID-19, took Paxlovid x5 days, serology in ED still positive. Patient was put on droplet precautions for
COVID. CT abdomen pelvis 05/08/2025: Mild right lower lobe pneumonia. Moderate to large hiatal hernia. No renal, ureteral, bladder calculus. No obstructive uropathy. Possible cystitis. Fecal impaction with moderate solid stool in the rectum.
Large soft tissue mass demonstrating approximately 11.5 cm AP x 8 cm transverse, likely neoplasm. Urine culture grew E. coli, continued Rocephin for UTI. Patient developed right flank pain for which CT PE was done. Results came back negative.
Patient was given Voltaren gel and lidocaine patch for the right flank pain with improvement. She was switched to meropenem through 05/19/2025 per infectious disease. Holding Aldactone/ARB. Patient's hemoglobin was 6.6 this morning and was given 1
unit of PRBCs. Patient being discharged to SNF.
Discharge Plan
-
Patient Disposition: Skilled Nursing/SNF
Discharge Diagnosis/Procedures: Multidrug-resistant ESBL-Klebsiella urinary tract infection
COVID-19 infection
Right lower lobe pneumonia
Condition: Fair
Diet: No restrictions
Activity: With assistance and As tolerated
Driving Restrictions: As prior to admission
Bathing Restrictions: None
Blood Work: Hb on 05/16/25, CBC with differential/CMP/Mg in a week
Others Tests: Repeat COVID-19 test in a week
Activity Restrictions/Additional Instructions:
Wound Care Instructions
Sacral ulcers-clean with saline or soap and water, honey gel, cover with silicone border foam, change q 3 days and prn loosened dressing. If foam ineffective, apply zinc barrier ointment and abd pad secured with minimal silicone tape daily and prn
soilage instead.
Heels-clean with saline, no sting skin prep (allow to dry), foam dressing, change q 3 days and prn loosened dressing.
Air mattress, air overlay or gel overlay with hospital bed.
Elevate heels off bed with pillow/s
Pressure redistributing chair cushion (i.e. Air chair cushion).
Turning schedule.
Follow up with wound rn primary care or at wound care center call for an appointment.
Referrals:
Anshu Xie MD [Family Provider] - in less than 1 week
Referral Note: Follow-up COVID-19, UTI, and metastatic endometrial cancer. Make an appointment with another oncologist if yours is on maternity leave.
Additional Discharge Medication Instructions: Continue meropenem 500 mg IV every 8 hours via port would last dose on 05/19/2025.
Prescriptions:
New
meropenem 500 mg Recon Soln
500 mg IV Q8H 6 Days Qty: 1 0RF
Continued
atorvastatin 40 mg Tablet
40 mg PO QPM 30 Days Qty: 30 0RF
latanoprost 0.005 % Drops
1 drp BOTH EYES HS 30 Days Qty: 1 0RF
trazodone 50 mg Tablet
25 mg PO BID 30 Days Qty: 60 0RF
polyethylene glycol 3350 [Miralax] 17 gram Powder In Packet
17 g PO QPM 30 Days Qty: 30 0RF
diltiazem HCl 240 mg Capsule,Extended Release 24 Hr
240 mg PO DAILY 30 Days Qty: 30 0RF
hydralazine 25 MG tablet
25 mg PO BID 30 Days Qty: 30 0RF
Rx Instructions:
HOLD IF systolic blood pressure <130 while on Oxycodone.
therapeutic multivitamin Tablet
1 tab PO DAILY 30 Days Qty: 30 0RF
omeprazole 40 mg Capsule,Delayed Release(Dr/Ec)
40 mg PO DAILY 30 Days Qty: 30 0RF
Rx Instructions:
Take daily while on Meloxicam and full dose Aspirin to prevent GI upset.
guaifenesin 100 mg/5 mL Liquid
200 mg PO Q6HPRN PRN (Reason: cough) 30 Days Qty: 120 0RF
spironolactone 25 mg Tablet
25 mg PO DAILY 30 Days Qty: 30 0RF
levothyroxine 25 mcg Tablet
25 mcg PO DAILY 30 Days Qty: 30 0RF
methenamine hippurate 1 gram Tablet
1 g PO BID 30 Days Qty: 30 0RF
famotidine 20 mg Tablet
20 mg PO DAILY 30 Days Qty: 30 0RF
magnesium hydroxide [Milk of Magnesia] 400 mg/5 mL Suspension
2,400 mg PO Q00NFXM PRN (Reason: constipation) 30 Days Qty: 30 0RF
calcium carbonate [Tums] 200 mg calcium (500 mg) Tablet,Chewable
200 mg PO DAILYPRN PRN (Reason: heart burn) 30 Days Qty: 30 0RF
aspirin 81 mg Tablet,Chewable
81 mg PO DAILY 30 Days Qty: 30 0RF
ondansetron 4 mg Tablet,Disintegrating
4 mg PO Q6HPRN PRN (Reason: Nausea) 30 Days Qty: 120 0RF
valsartan 160 mg Tablet
160 mg PO DAILY 30 Days Qty: 30 0RF
magnesium 200 mg Tablet
400 mg PO DAILY 30 Days Qty: 30 0RF
cholecalciferol (vitamin D3) 1,000 UNITS tablet
1,000 mcg PO DAILY 30 Days Qty: 30 0RF
buprenorphine 20 mcg/hour Patch Weekly
1 patch TRANSDERMAL KYLE@1830 30 Days Qty: 4 0RF
coQ10 (ubiquinol) 100 MG capsule
300 mg PO DAILY 30 Days Qty: 30 0RF
potassium chloride 20 mEq Tablet Extended Release
20 meq PO DAILY 30 Days Qty: 30 0RF
Discontinued
[place] Nasal 0.65 % Aerosol,[place]
1 spray INTRANASAL BID
Discharge Orders:
Discharge Patient (As Directed); Ordered 05/14/25
Ordered By: Wil Gotti
Discharge Date and Time
Print Language: SAMMARINESE
[2025-05-14 14:52] LABS: Hematocrit 26.2 % (37.0-47.0); Hemoglobin 8.8 g/dL (12.0-16.0)
--- NOTE | 2025-05-14 16:43 | VATNOTE ---
port deaccessed now and midline placed. Information for midline given to .
[2025-05-14] MEDS: ZOFRAN 4 MG IV (17:26)
[2025-05-14] MEDS: LIPITOR 40 MG PO (17:31)
[2025-05-14] MEDS: MIRALAX PO (17:40)
--- NOTE | 2025-05-14 18:12 | PTCARENOTE ---
Patient had a X1 episode of vomiting. no s/s of distress noted. made aware. Zofran given as ordered. Pt now states she feels better. plan of care ongoing. call john within reach.
--- NOTE | 2025-05-14 18:24 | PTCARENOTE ---
Patient report called to Nurse Mckeon at [facility] @ [phone]. Nurse updated on pt will be coming in with new Right midline which was placed today. supervisor assembly department is at 7pm.
--- NOTE | 2025-05-14 18:51 | W.PN.UPDATE ---
Update Note
Progress Note Update
Patient had 4-5 episodes of vomiting in the past hour despite getting Zofran 4 Mg. Will order abdominal x-ray. Holding discharge.
[2025-05-14] MEDS: MUCINEX PO (20:45)
[2025-05-14] MEDS: REMOVE LIDOCAINE PATCH 1 PATCH REMOVE (20:45)
[2025-05-14] MEDS: COMPAZINE 10 MG IV (21:14)
[2025-05-14] MEDS: XALATAN OPHTHALMIC SOLUTION 1 DROP BOTH EYES (22:41)
[2025-05-14] MEDS: DICLOFENAC 1% TOPICAL GEL 100 GRAM TOPICAL (22:43)
[2025-05-14] MEDS: DULCOLAX 10 MG RECTAL (23:06)
[2025-05-15] MEDS: MERREM 500 MG IV ×3 (00:50→17:18)
[2025-05-15] MEDS: STERILE WATER FOR INJECTION 10 ML IV ×3 (00:50→17:18)
[2025-05-15 06:00] VITALS: BMI 22.8
[2025-05-15 06:12] LABS: Hematocrit 24.9 % (37.0-47.0); Hemoglobin 8.4 g/dL (12.0-16.0); Mean Corp Hgb Conc. 33.7 g/dL (33.0-37.0); Mean Corpuscular Volume 92.9 fL (81.0-99.0); Nucleated Red Blood Cells % 0 %; Platelet Count 202 10^3/uL (130-400); Red Cell Dist. Width 17.5 % (11.5-14.5)
[2025-05-15] MEDS: SYNTHROID 25 MCG PO (06:27)
[2025-05-15 06:28] LABS: ALT (SGPT) 16 U/L (0-35); AST (SGOT) 16 U/L (14-36); Albumin 2.2 g/dl (3.5-5.0); Alkaline Phosphatase 90 U/L (38-126); Blood Urea Nitrogen 12 mg/dl (7-17); Calcium 7.9 mg/dl (8.4-10.2); Carbon Dioxide 20 mmol/L (22-30); Chloride 110 mmol/L (98-107); Estimated Creatinine Clearance 61 ml/min; Glucose 98 mg/dl (70-99); Magnesium 1.5 mg/dl (1.6-2.3); Potassium 3.8 mmol/L (3.5-5.1); Sodium 133 mmol/L (135-145); Total Protein 4.6 g/dl (6.3-8.2); eGFR > 60.00
--- NOTE | 2025-05-15 07:28 | W.PN.HOSP.TC ---
Today's Communication/Plan
-
Patient to be discharged to a SNF today.
Assessment / Plan
Assessment / Plan
85-year old female with a past medical history of stage IV endometrial cancer, hypertension, urinary retention, CVA/TIA and UTI, brought in from a SNF, who presented with confusion, cough, nausea, lower abdominal pain, constipation and decreased
oral intake. She has been having recurrent episodes of urinary incontinence since her Mccabe catheter was removed after 6 months. Recently had COVID-19, took Paxlovid x5 days, serology in ED still positive.
Assessment/Plan:�
# MDR ESBL- Klebsiella UTI
- MDR ESBL - Klebsiella UTI. Ceftriaxone discontinued, started meropenem 500 mg IV q8h until 05/19/25 per ID.
# Anemia of chronic disease
- Hemoglobin at 8.4 today, No signs of bleeding.
- s/p 1U pRBCs 05/14/25.
# COVID-19 Infection
# Nausea
# RLL Pneumonia - from recent COVID vs bacterial
- Positive for COVID-19 last week. 5 day course of Paxlovid. Serology in ED positive.
- Still has cough, not requiring O2, maintain droplet precautions as immunocompromised patient sheds COVID longer than normal host.
# Right pleuritic pain - resolved
- CT PE negative.
- Continue Voltaren gel and lidocaine patch with decrease in pain
# Hypomagnesemia�
- 1.2 today, Magnesium given to replete
- Will continue to monitor
# Hyperkalemia - Stable
# Acute Kidney Injury
- K 3.8 today, will continue to monitor
- Creatinine 1, decreased from 2.2 (0.8 baseline).
- BUN decreased from 66 on admission to 21
# Metastatic Endometrial Cancer
# Failure to Thrive
- s/p initial surgery followed by chemoradiation.
- Son wants to take patient home vs SNF - but opposed to [facility].
# Essential Hypertension
- Continue diltiazem and hydralazine.
# Hypothyroidism
- Stable.� Continue current T4 supplementation.
# Chronic Pain of Malignancy
- Continue buprenorphine. Adjust regimen as needed.
DVT Prophylaxis: Lovenox
Full code
Anticipated Discharge: Today
Subjective/Interval History
-
Date of Service: May 15, 2025
Patient was supposed to be discharged to a SNF yesterday around 7 PM, but started having 4-5 episodes of vomiting around 6:30 PM, unrelieved with Zofran 4 Mg p.o. Upon reevaluation this morning, patient has not had an episode of vomiting overnight
and passed a 'large' bowel movement around 3 AM last night after getting a suppository. No new symptoms. Her right flank pain is not present at this time.
Objective Data
-
Labs:
Laboratory Results
05/15/25
05:40
WBC 8.7
Hgb 8.4 L
Hct 24.9 L
Plt Count 202
Sodium 133 L
Potassium 3.8
Chloride 110 H
Carbon Dioxide 20 L
BUN 12
Creatinine 0.6
Glucose 98
Calcium 7.9 L
Total Bilirubin 0.6
AST 16
ALT 16
Alkaline Phosphatase 90
Vital Signs:
Vital Signs
Temp Pulse Resp BP Pulse Ox
98.0 F 84 18 143/54 96
05/14/25 17:15 05/14/25 20:45 05/14/25 17:15 05/14/25 20:45 05/14/25 17:15
I&O
05/14/25 05/15/25 05/16/25
06:59 06:59 06:59
Intake Total 270 / 270 790 / 790
Output Total 475 / 475
Balance -205 / -205 790 / 790
Review of Systems
-
History Source: Patient
All other systems: Reviewed and negative
Constitutional: Reports No Symptoms
EENT: Reports No Symptoms Reported
Respiratory: Reports No Symptoms
Cardiac: Reports No Symptoms
Abdomen/GI: Reports No Symptoms
Breast: Reports No Symptoms
Genitourinary: Reports No Symptoms
Musculoskeletal: Reports No Symptoms
Skin: Reports No Symptoms
Neuro: Reports No Symptoms
Endocrine: Reports No Symptoms
Hematologic / Lymphatic: Reports No Symptoms
Allergy / Immunology: Reports No Symptoms
Physical Exam
-
General: No Apparent Distress, Comfortable, Conversant and Cachectic
HEENT: Normocephalic, Atraumatic, Moist Mucous Membranes and Anicteric
Respiratory: Clear to Auscultation
Cardiac: Regular Rhythm and S1/S2
GI: Soft, Nontender, Nondistended and Normal Bowel Sounds
Musculoskeletal: No Clubbing, No Cyanosis and No Edema
Skin: Warm and Dry
Neuro: Awake and AO x 3
Hematologic / Lymphatic: No Lymphadenopathy
Psych: Calm
Data Reviewed
-
Labs: Labs Reviewed by me and Discussed with Physician
Old Records: Reviewed
--- NOTE | 2025-05-15 07:37 | W.PN.UPDATE ---
Addendum entered and electronically signed by Wil Gotti MD 05/15/25 11:45:
Total time spent on d/c = 33 min. This included today's physical exam, progress note, review of laboratory and diagnostic data, preparation of discharge documents and prescriptions, and discussions about the pt's hospital course and discharge plan
with the patient and other paramedical aide involved in the patient's care.
Original Note:
Update Note
Progress Note Update
I saw and evaluated the patient. I reviewed the resident�s note and agree with findings and plan as documented in the resident�s note.
No new complaints. No vomiting O/N.
Gen: NAD, Awake and alert, appears chronically ill
Eyes: EOMI, PERRLA, no scleral icterus.
Neck: supple.
CV: Continues to remain RRR, +S1/S2, no m/r/g.
Resp: CTAB anteriorly, no rales, wheezes, or rhonchi.
Abd: +BS, soft, NT, ND
Skin: No rashes.
Neuro: Continues to remain CN 2-12 intact, non-focal.
Psych: Normal mood and affect.
CTA chest: No PE. 10 mm solid pulmonary nodule in the anteromedial right lung, most suspicious for a pulmonary metastasis. Mild patchy opacities in the right lower lung for which considerations include pneumonitis/pneumonia or atelectasis. Small to
moderate right and trace left pleural effusions.
Large hiatal hernia. Diffuse esophageal wall thickening and esophageal fluid/debris, raising concern for esophagitis and esophageal dysmotility and/or gastroesophageal reflux.
Abd X-ray: Nonobstructive bowel gas pattern. Moderate rectal stool burden. Small radiopacities project over the colon which are unchanged from prior CT and likely represent pills/capsules.
ESBL Kleb pneumoniae UTI:
-with acute metabolic encephalopathy due to UTI versus acute toxic encephalopathy due to trazodone (on hold)
-was on Rocephin, now on Meropenem through 05/19/25 as per ID
KEON with hyperkalemia:
-likely due to volume depletion as Cr improved with IVFs
-K now normal
-cont to hold Aldactone/ARB
COVID-19 Infection:
-completed 5 days Paxlovid but still testing positive
-cont isolation
-virus shedding will be prolonged in immunosuppressed
Anemia of chronic disease:
-no evidence of bleeding
-s/p 1U pRBCs
Vomiting:
-Abd Xray without obstruction
-resolved
Hypomagnesemia:
-2g IV Mg
-d/c on PO Mg
Other problems:
Acute onset pleuritic chest pain: CTA chest NEG as above, cont lidoderm patch
Metastatic Endometrial Cancer: completed chemo, followed at [facility], decisions on hospice can be made post-d/c
Essential HTN: Continue diltiazem/hydralazine
Hypothyroidism: cont Levoxyl
Chronic Pain of Malignancy: cont buprenorphine
Hyponatremia
Medically cleared for discharge.
Total time spent on today's encounter was 50 minutes which included time spent in counseling the patient/family regarding diagnosis and treatment plan as listed above, goals of care, and symptom management. Case was discussed with nursing staff,
specialists, and care coordinators/case management. All labs and imaging personally reviewed by me. Remainder the time spent in detailed review of previous records, lab data, imaging, and other medical provider documentation.
[2025-05-15 07:38] VITALS: BP 139/49
--- NOTE | 2025-05-15 08:52 | CM ---
Addendum entered by Deep Peña 05/15/25 13:14:
supervisor assembly stock time 6:00 p.m. Pt's son Adam is aware.
Original Note:
CM following re: discharge planning.
Reviewed pt's chart, spoke to pt's son Adam to update on discharge plan progress.
Per MD, discharge has been cancelled yesterday due to pt had 5-6 episodes of vomiting
According to MD pt is medically stable to be discharged today. IMM reviewed yesterday.
CM spoke to [facility] liaison and she confirmed that pt is accepted for admission today.
CM initiated an auth fro [facility] for SNF level of care at [facility], spoke to [employer] u.s. representative Rebeca and based on pt's clinical, pt is approved for 4 initial days from 05/14/25 till 05/17/25 with NRD and LCD 05/17/25. Auth: [id number]. For concurrent review:
[phone].
Auth information forwarded to [facility] liaison.
to arrange ambulance transport BLS. PMNC completed and left with . Ambulance auth to Acute care ambulance obtained: [id number]
[facility] nursing report: [phone]
Discharge instructions fax: [phone]
D/C plan: [facility] for a short term rehab.
[2025-05-15] MEDS: MAGNESIUM SULFATE 50 IV (08:53)
[2025-05-15] MEDS: MUCINEX 600 MG PO (08:55)
[2025-05-15] MEDS: PEPCID 20 MG PO (08:55)
[2025-05-15] MEDS: LIDOCAINE 4% PATCH 1 PATCH TOPICAL (08:55)
[2025-05-15] MEDS: PROTONIX 40 MG PO (08:55)
[2025-05-15] MEDS: APRESOLINE 25 MG PO (08:55)
[2025-05-15] MEDS: CARDIZEM CD 240 MG PO (08:55)
[2025-05-15] MEDS: ASPIR LOW (ENTERIC COATED) 81 MG PO (08:56)
[2025-05-15] MEDS: DICLOFENAC 1% TOPICAL GEL 100 GRAM TOPICAL ×2 (08:57→17:20)
[2025-05-15 11:58] LABS: Magnesium 2.0 mg/dl (1.6-2.3)
[2025-05-15] MEDS: DICLOFENAC 1% TOPICAL GEL TOPICAL (12:50)
[2025-05-15 15:07] VITALS: BP 129/46
[2025-05-15] MEDS: LIPITOR 40 MG PO (17:19)
[2025-05-15] MEDS: COMPAZINE 10 MG IV (17:19)
[2025-05-15] MEDS: MIRALAX 17 GRAMS PO (17:20)
== END 2025-05-15 19:27 | DRG 682 ==
LOC: 2 NORTH 20:34
PROVIDERS: Nurse Practitioner; Nurse Practitioner Family; ADMITTING PHYSICIAN Hospitalist; ATTENDING PHYSICIAN Internal Medicine; CONSULT PHYSICIAN Internal Medicine Infectious Disease; EMERGENCY PHYSICIAN Emergency Medicine; FAMILY PHYSICIAN Family Medicine
PROC: 30243N1 Transfusion of Nonautologous Red Blood Cells into Central Vein, Percutaneous Approach (ICD-10-PCS; 2025-05-14)
DX: N17.9 Acute kidney failure, unspecified (principal); G92.8 Other toxic encephalopathy; G93.41 Metabolic encephalopathy; J12.82 Pneumonia due to coronavirus disease 2019; U07.1 COVID-19; C78.01 Secondary malignant neoplasm of right lung; Z16.12 Extended spectrum beta lactamase (ESBL) resistance; Z16.24 Resistance to multiple antibiotics; E87.1 Hypo-osmolality and hyponatremia; D84.9 Immunodeficiency, unspecified; R64 Cachexia; C54.1 Malignant neoplasm of endometrium; B96.1 Klebsiella pneumoniae [K. pneumoniae] as the cause of diseases classified elsewhere; N30.90 Cystitis, unspecified without hematuria; D63.0 Anemia in neoplastic disease; E83.42 Hypomagnesemia; E87.5 Hyperkalemia; R62.7 Adult failure to thrive; E03.9 Hypothyroidism, unspecified; I10 Essential (primary) hypertension; E78.00 Pure hypercholesterolemia, unspecified; G89.3 Neoplasm related pain (acute) (chronic); R32 Unspecified urinary incontinence; T43.215A Adverse effect of selective serotonin and norepinephrine reuptake inhibitors, initial encounter; K21.9 Gastro-esophageal reflux disease without esophagitis; R33.8 Other retention of urine; K44.9 Diaphragmatic hernia without obstruction or gangrene; K56.41 Fecal impaction; R11.10 Vomiting, unspecified; I25.10 Atherosclerotic heart disease of native coronary artery without angina pectoris; Z68.22 Body mass index [BMI] 22.0-22.9, adult; Z86.73 Personal history of transient ischemic attack (TIA), and cerebral infarction without residual deficits; Z85.3 Personal history of malignant neoplasm of breast; Z90.710 Acquired absence of both cervix and uterus; Z96.611 Presence of right artificial shoulder joint; Z92.3 Personal history of irradiation; Z92.21 Personal history of antineoplastic chemotherapy; Z79.891 Long term (current) use of opiate analgesic; Z79.890 Hormone replacement therapy; Z79.82 Long term (current) use of aspirin; Z79.899 Other long term (current) drug therapy
CPT/HCPCS: 71046; 71275; 74018; 74176; 80048; 80053; 81003; 81015; 83735; 85014; 85018; 85025; 85027; 86850; 86900; 86901; 86920; 87070; 87077; 87086; 87186; 87502; 87811; 92610; 96374; 96375; 97163; 97167; 97530; 97535; 99285; P9016; Q9967

== ENCOUNTER 2025-06-07 12:48 | Emergency (ER) | payer OTHER, SELFPAY ==
--- NOTE | 2025-06-07 12:57 | EDRN ---
Addendum entered by Antoinette Bass RN 06/07/25 13:21:
CORRECTION: TOD 1251
Original Note:
Pt received by EMS with CPR in progress via [place] device. Per EMS pt went unresponsive in wheelchair at [facility], taken back to room by staff where CPR was initiated. Upon arrival to [facility] ED pt had been down >1hr; 8 epi's had
been given; pt never had a shockable rhythm--only PEA and asystole. Pt attached to monitor and rhythm check performed. Rhythm was asystole. Pt pronounced at 0051 by MD Salazar.
--- NOTE | 2025-06-07 13:17 | EDRN ---
Call placed to [facility] re: pt . Per [facility] sales representative wire rope DIPESH MELGOZA, pt is NOT A CANDIDATE FOR [employer] D/T AGE. [facility] will not be following this patient.
--- NOTE | 2025-06-07 13:30 | ED.GENMED ---
History of Present Illness
General
Chief Complaint: CODE
Time Seen by Provider: 06/07/25 13:00
Nursing documentation reviewed up to this point in time: agreed with
History of Present Illness
History of Present Illness:
85-year-old female brought to the ER by EMS for evaluation after cardiac arrest. Patient is living in a rehab facility after recent admission for generalized weakness. She had been apparently sitting at the lunch table when she lost consciousness.
Staff brought her back to her room where they noted her to be pulseless and apneic and initiated CPR. EMS was dispatched at 1146. On arrival they found patient to be apneic and in asystole. CPR initiated. Patient was intubated and ventilation
was added in addition to compressions. Patient received 8 rounds of epinephrine prehospital without any change in status-she occasionally would have PEA, however no ROSC
Past History
Past History
ED Past Medical History: Cancer (breast, uterine), GERD, HTN, Hypercholesterolemia, Hypothyroidism and Other (gout, iron deficiency, mild pulm HTN, episode of aphasia requiring use of tenecteplase)
ED Past Surgical History: Cholecystectomy and Orthopedic (Rotator cuff repair left)
Social History
Tobacco: Non-smoker
Alcohol: None
Personal:
Living: with family
Employment: Retired
Family History
Family History: Other (Reviewed and noncontributory)
Review of Systems
Review of Systems
Allergies reviewed?: Yes
Phy Exam
Physical Exam
Physical Exam:
Patient is intubated with compressions being performed at time of arrival. She is unresponsive, pupils are fixed and dilated, she is cool to touch, pulses present with compressions, no spontaneous peripheral pulses found without CPR, heart sounds
are absent, breath sounds are coarse with assisted ventilation, GCS3 patient, she has a chronic appearing ulcerating 1.5 cm wound present on her right forehead which has a dressing present which is clean dry and intact, head is otherwise
normocephalic
MDM/Problems Addressed
Differential Diagnosis Includes:
arrhythmia, occult infection, sudden cardiac , pulmonary embolism along with other etiologies considered
Chronic conditions affecting care:
Stage IV cancer, deconditioning, advanced age, hypertension, GERD
*Pulse Oximetry
Patient hypoxic: yes (no perfusion)
*Critical Care Note
Total Time (30-74mins, 75-104mins- exclusive of procedures): see note
comment:
Critical care statement: A total of 30 minutes of critical care time was provided for this patient. This includes management of unstable vital signs, evaluation of the patient at bedside, reviewing the patient's pertinent medical records, discussion
with consultants, review of old EKGs and review of pertinent medical records. This time with separate from time utilized to perform the aforementioned documented procedures
Please see code sheet for full details
Update Note
Update Note:
Else CPR continued on patient arrival. I reviewed medications and prehospital treatment with personnel present at bedside. CPR was held. Patient has no spontaneous electrical activity on the monitor, no pulse, no attempt at spontaneous
respiration. Patient pronounced at 1251. I updated and son who come to the ER shortly after the patient. I also spoke with primary care office of Dr. Andrew Montesinos and spoke with Olim[facility]ia, they would complete the remainder of the
certificate. I spoke with Jyotsna Campos from the [facility] office, her body is released.
ED Attending Note
-
Portions of this chart may have been created with voice recognition software.� Occasional wrong word or��sound alike� substitutions may have occurred due to the inherent limitations of voice recognition software.
Discharge Plan
Departure
Patient Disposition:
Date of Disposition: 06/07/25
Time of Disposition: 14:03
Discharge Problem:
Cardiac arrest
Prescriptions:
No Action
atorvastatin 40 mg Tablet
40 mg PO QPM 30 Days Qty: 30 0RF
meropenem 500 mg Recon Soln
500 mg IV Q8H 6 Days Qty: 1 0RF
latanoprost 0.005 % Drops
1 drp BOTH EYES HS 30 Days Qty: 1 0RF
trazodone 50 mg Tablet
25 mg PO BID 30 Days Qty: 60 0RF
polyethylene glycol 3350 [Miralax] 17 gram Powder In Packet
17 g PO QPM 30 Days Qty: 30 0RF
diltiazem HCl 240 mg Capsule,Extended Release 24 Hr
240 mg PO DAILY 30 Days Qty: 30 0RF
hydralazine 25 MG tablet
25 mg PO BID 30 Days Qty: 30 0RF
Rx Instructions:
HOLD IF systolic blood pressure <130 while on Oxycodone.
therapeutic multivitamin Tablet
1 tab PO DAILY 30 Days Qty: 30 0RF
omeprazole 40 mg Capsule,Delayed Release(Dr/Ec)
40 mg PO DAILY 30 Days Qty: 30 0RF
Rx Instructions:
Take daily while on Meloxicam and full dose Aspirin to prevent GI upset.
guaifenesin 100 mg/5 mL Liquid
200 mg PO Q6HPRN PRN (Reason: cough) 30 Days Qty: 120 0RF
spironolactone 25 mg Tablet
25 mg PO DAILY 30 Days Qty: 30 0RF
levothyroxine 25 mcg Tablet
25 mcg PO DAILY 30 Days Qty: 30 0RF
methenamine hippurate 1 gram Tablet
1 g PO BID 30 Days Qty: 30 0RF
famotidine 20 mg Tablet
20 mg PO DAILY 30 Days Qty: 30 0RF
magnesium hydroxide [Milk of Magnesia] 400 mg/5 mL Suspension
2,400 mg PO T25QEPL PRN (Reason: constipation) 30 Days Qty: 30 0RF
calcium carbonate [Tums] 200 mg calcium (500 mg) Tablet,Chewable
200 mg PO DAILYPRN PRN (Reason: heart burn) 30 Days Qty: 30 0RF
aspirin 81 mg Tablet,Chewable
81 mg PO DAILY 30 Days Qty: 30 0RF
ondansetron 4 mg Tablet,Disintegrating
4 mg PO Q6HPRN PRN (Reason: Nausea) 30 Days Qty: 120 0RF
valsartan 160 mg Tablet
160 mg PO DAILY 30 Days Qty: 30 0RF
magnesium 200 mg Tablet
400 mg PO DAILY 30 Days Qty: 30 0RF
cholecalciferol (vitamin D3) 1,000 UNITS tablet
1,000 mcg PO DAILY 30 Days Qty: 30 0RF
buprenorphine 20 mcg/hour Patch Weekly
1 patch TRANSDERMAL KYLE@1830 30 Days Qty: 4 0RF
coQ10 (ubiquinol) 100 MG capsule
300 mg PO DAILY 30 Days Qty: 30 0RF
potassium chloride 20 mEq Tablet Extended Release
20 meq PO DAILY 30 Days Qty: 30 0RF
prochlorperazine edisylate 10 mg/2 mL (5 mg/mL) Solution
10 mg IV Q6HPRN PRN (Reason: persistent nausea) Qty: 50 0RF
magnesium oxide 500 mg magnesium Tablet
500 mg PO BID Qty: 60 0RF
Referrals:
Andrew Montesinos MD [Family Provider]
Interventions
Interventions:
*Nursing Disposition Last Done: 06/07/25 15:15
Discharge Date and Time
Discharge Date/Time: 06/07/25 15:17
Print Language: MALTESE
--- NOTE | 2025-06-07 14:28 | EDRN ---
Comfort and support provided to family members at bedside. Family verbalizes understanding of post-mortem process and do not have any questions at this time. Family left ED at this time.
== END 2025-06-07 15:17 | disposition expired ==
LOC: EMR 12:48
PROVIDERS: EMERGENCY PHYSICIAN Emergency Medicine; FAMILY PHYSICIAN Internal Medicine
DX: I46.9 Cardiac arrest, cause unspecified (principal); E03.9 Hypothyroidism, unspecified; E78.00 Pure hypercholesterolemia, unspecified; I10 Essential (primary) hypertension; Z90.49 Acquired absence of other specified parts of digestive tract; Z85.3 Personal history of malignant neoplasm of breast
CPT/HCPCS: 99291; 31500; 92950